=== PATIENT | female | born 1950 | race Caucasian/White ===

== ENCOUNTER → 2018-07-20 08:43 | Outpatient (CLI) | payer MEDICARE, OTHER, SELFPAY ==
[2018-07-20 10:35] LABS: Absolute Lymphocyte Count 1.81 X10^3/ul (0.83-4.51); Absolute Neutrophil Count 3.4 X10^3/uL (2.0-7.7); Basophil# 0.02 X10^3/uL; Basophil% 0.4 % (0-1); Eosinophil# 0.04 X10^3/uL; Eosinophils% 0.7 % (0-5); Hemoglobin 13.3 g/dl (12.0-15.0); Lymphocyte # 1.81 X10^3/ul (4.0); Lymphocyte % 32.5 % (19-41); Mean Corp Hgb Conc 32.4 g/gl (32-36); Mean Corpuscular Hgb 29.6 pg (27.0-32.0); Mean Corpuscular Volume 91.1 fL (81-99); Mean Platelet Vol. 9.4 fl (6.2-12.0); Monocyte# 0.33 X10^3/uL; Monocyte% 5.9 % (0-10); Neutrophil # 3.36 X10^3/uL (2.7-7.7); Neutrophil % 60.3 % (47-70); Platelet Count 414 K/mm3 (150-450); RBC Distribution Width CV 13.6 % (11.6-14.6); RBC Distribution Width SD 44.7 fl (35.1-43.9); White Blood Count 5.6 K/mm3 (4.4-11.0)
[2018-07-20 10:36] LABS: POSITIVE COUNT NO; POSITIVE DIFFERENTIAL NO; POSITIVE MORPHOLOGY NO
[2018-07-20 11:01] LABS: BUN 16 mg/dL (7-18); Creatinine, Serum 0.58 mg/dL (0.55-1.02); EST Glomerular Filtration Rate 109 mL/min (>60); Glucose 93 mg/dL (74-106)
[2018-07-20 11:02] LABS: AST(SGOT) 13 U/L (15-37); Alanine Aminotransfer ALT/SGPT 18 U/L (13-56); Albumin, Serum 3.6 g/dL (3.2-5.0); Alkaline Phosphatase 64 U/L (45-117); Anion Gap 7 (5-15); BUN/Creat Ratio 27.4 RATIO (10-20); Calcium,Total 8.7 mg/dL (8.5-10.1); Chloride 105 mmol/L (98-107); Cholesterol 215 mg/dL (200); Est Glom Filt Rate - Afr Amer 132 mL/min (>60); Globulin 3.5 g/dL (2.2-4.2); High Density Lipoprotein 64 mg/dL; Potassium 3.8 mmol/L (3.5-5.1); Protein, Total 7.1 g/dL (6.4-8.2); Sodium Level 140 mmol/L (136-145); Thyroid Stim Hormone (TSH) 2.53 uIU/mL (0.358-3.74); Triglycerides 103 mg/dL; Very Low Density Lipoprotein 21 mg/dL (5-40)
[2018-07-20 11:13] LABS: PTHIN 44.3 pg/mL (18.4-80.1)
== END ==
PROVIDERS: Family Provider Family Medicine; PCP Family Medicine; Referring Provider Family Medicine; Visit Provider Family Medicine
DX: Z13.220 Encounter for screening for lipoid disorders (principal); M81.0 Age-related osteoporosis without current pathological fracture
CPT/HCPCS: 36415; 80053; 80061; 82306; 83970; 84443; 85025

== ENCOUNTER → 2019-01-24 11:24 | Outpatient (CLI) | payer MEDICARE, SELFPAY ==
[2019-01-24 14:10] LABS: Absolute Lymphocyte Count 1.82 X10^3/ul (0.83-4.51); Absolute Neutrophil Count 6.1 X10^3/uL (2.0-7.7); Basophil# 0.02 X10^3/uL; Basophil% 0.2 % (0-1); Eosinophil# 0.03 X10^3/uL; Eosinophils% 0.4 % (0-5); Hematocrit 41.1 % (37-47); Hemoglobin 13.5 g/dl (12.0-15.0); Lymphocyte # 1.82 X10^3/ul (4.0); Lymphocyte % 21.8 % (19-41); Mean Corp Hgb Conc 32.8 g/gl (32-36); Mean Corpuscular Hgb 29.2 pg (27.0-32.0); Mean Corpuscular Volume 88.8 fL (81-99); Mean Platelet Vol. 9.7 fl (6.2-12.0); Monocyte# 0.39 X10^3/uL; Monocyte% 4.7 % (0-10); Neutrophil # 6.05 X10^3/uL (2.7-7.7); Neutrophil % 72.7 % (47-70); Platelet Count 405 K/mm3 (150-450); RBC Distribution Width CV 13.4 % (11.6-14.6); Red Blood Count 4.63 M/mm3 (4.2-5.4); White Blood Count 8.3 K/mm3 (4.4-11.0)
[2019-01-24 14:13] LABS: POSITIVE COUNT NO; POSITIVE DIFFERENTIAL NO; POSITIVE MORPHOLOGY NO
[2019-01-24 14:35] LABS: ALB/GLOB Ratio 1.2 RATIO (0.9-2.4); AST(SGOT) 15 U/L (15-37); Alanine Aminotransfer ALT/SGPT 21 U/L (13-56); Alkaline Phosphatase 65 U/L (45-117); Anion Gap 7 (5-15); BUN 14 mg/dL (7-18); BUN/Creat Ratio 22.9 RATIO (10-20); Calcium,Total 9.5 mg/dL (8.5-10.1); Chloride 103 mmol/L (98-107); Creatinine, Serum 0.61 mg/dL (0.55-1.02); EST Glomerular Filtration Rate 104 mL/min (>60); Est Glom Filt Rate - Afr Amer 125 mL/min (>60); Ferritin 50 ng/mL (8-252); Globulin 3.4 g/dL (2.2-4.2); Glucose 86 mg/dL (74-106); Potassium 3.8 mmol/L (3.5-5.1); Protein, Total 7.4 g/dL (6.4-8.2); Sodium Level 140 mmol/L (136-145); T4 Free Direct 0.88 ng/dL (0.76-1.46); Thyroid Stim Hormone (TSH) 1.84 uIU/mL (0.358-3.74)
[2019-01-24 14:38] LABS: Vitamin D,25 Hydroxy 30.5 ng/mL (29.95-100.01)
== END ==
PROVIDERS: Family Provider Family Medicine; PCP Family Medicine; Referring Provider Family Medicine; Visit Provider Family Medicine
DX: M81.0 Age-related osteoporosis without current pathological fracture (principal); R53.83 Other fatigue
CPT/HCPCS: 36415; 80053; 82306; 82728; 84439; 84443; 85025

== ENCOUNTER → 2019-03-07 12:40 | Outpatient (CLI) | payer MEDICARE, SELFPAY ==
--- NOTE | 2019-03-07 12:41 | BI_ITS ---
MAMMOGRAPHY - BILATERAL SCREENING REASON FOR EXAM: Female, 68 years old. Routine annual screening examination. PERTINENT HISTORY: Non-contributory. TECHNIQUE: Digital bilateral breast marilee (3D mammographic acquisition) in the CC and MLO projections. 2-D mediolateral oblique (MLO) and craniocaudad (CC) views of both breasts were obtained. CAD: Full Field Digital Mammography with Computer Added Detection was performed. COMPARISON: Comparison is made with prior study dated August 18, 2017. FINDINGS: Breast Composition: The breasts are heterogeneously dense, which may obscure small masses. There are no dominant masses or suspicious calcifications. No other significant abnormalities are identified. There has been no significant change since the prior study. BI/SCREEN MAMM (CAD) W/MARILEE BILAT IMPRESSION: Stable bilateral screening mammogram. Yearly follow-up mammogram recommended. (A) ASSESSMENT CATEGORY: BIRADS Category 1: Negative. A letter regarding these results will be sent to the patient by the facility within 30 days. Approximately 10% of breast cancers are not detected by mammography. A normal mammogram should not delay biopsy of a clinically suspicious abnormality. [id number] Electronically Signed: Roque Valdez, at 14:14 EDT , Service support ,
== END ==
PROVIDERS: Family Provider Family Medicine; PCP Family Medicine; Referring Provider Family Medicine; Visit Provider Family Medicine
DX: Z12.31 Encounter for screening mammogram for malignant neoplasm of breast (principal)
CPT/HCPCS: 77063; 77067

== ENCOUNTER → 2020-12-15 15:03 | Outpatient (CLI) | payer MEDICARE, SELFPAY ==
[2020-12-15 17:29] LABS: Absolute Lymphocyte Count 1.84 X10^3/uL (0.83-4.51); Absolute Neutrophil Count 5.3 X10^3/uL (2.0-7.7); Basophil# 0.03 X10^3/uL; Basophil% 0.4 % (0-1); Eosinophil# 0.05 X10^3/uL; Eosinophils% 0.7 % (0-5); Hematocrit 40.5 % (37-47); Hemoglobin 13.3 g/dL (12.0-15.0); Lymphocyte # 1.84 X10^3/ul (0.83-4.51); Lymphocyte % 24.3 % (19-41); Mean Corp Hgb Conc 32.8 g/dL (32-36); Mean Corpuscular Volume 91.4 fL (81-99); Monocyte# 0.37 X10^3/uL; Monocyte% 4.9 % (0-10); NRBC Flagged by Analyzer 0 % (0-5); Neutrophil # 5.26 X10^3/uL (2.7-7.7); Neutrophil % 69.4 % (47-70); Platelet Count 427 K/mm3 (150-450); RBC Distribution Width CV 13.2 % (11.6-14.6); Red Blood Count 4.43 M/mm3 (4.2-5.4); White Blood Count 7.6 K/mm3 (4.4-11.0)
[2020-12-15 17:46] LABS: Vitamin D,25 Hydroxy 33.4 ng/mL
[2020-12-15 17:50] LABS: ALB/GLOB Ratio 1.1 RATIO (0.9-2.4); AST(SGOT) 12 U/L (15-37); Alanine Aminotransfer ALT/SGPT 21 U/L (13-56); Albumin, Serum 3.8 g/dL (3.2-5.0); Alkaline Phosphatase 66 U/L (45-117); Anion Gap 6 (5-15); BUN 14 mg/dL (7-18); BUN/Creat Ratio 24.3 RATIO (10-20); Calcium,Total 9.4 mg/dL (8.5-10.1); Chloride 104 mmol/L (98-107); Cholesterol 240 mg/dL (200); Creatinine, Serum 0.58 mg/dL (0.55-1.02); EST Glomerular Filtration Rate 110 mL/min (>60); Est Glom Filt Rate - Afr Amer 134 mL/min (>60); Globulin 3.5 g/dL (2.2-4.2); Glucose 89 mg/dL (74-106); High Density Lipoprotein 70 mg/dL; Potassium 3.7 mmol/L (3.5-5.1); Protein, Total 7.3 g/dL (6.4-8.2); Sodium Level 137 mmol/L (136-145); Triglycerides 224 mg/dL; Very Low Density Lipoprotein 45 mg/dL (5-40)
== END ==
PROVIDERS: PCP Family Medicine; Referring Provider Family Medicine; Visit Provider Family Medicine
DX: Z13.220 Encounter for screening for lipoid disorders (principal); M81.0 Age-related osteoporosis without current pathological fracture
CPT/HCPCS: 36415; 80053; 80061; 82306; 85025

== ENCOUNTER → 2021-01-14 11:00 | Outpatient (CLI) | payer MEDICARE, SELFPAY ==
--- NOTE | 2021-01-14 11:02 | BI_ITS ---
MAMMOGRAPHY - BILATERAL SCREENING REASON FOR EXAM: Female, 70 years old. Routine annual screening examination. PERTINENT HISTORY: Non-contributory. TECHNIQUE: Digital bilateral breast marilee (3D mammographic acquisition) in the CC and MLO projections. 2-D mediolateral oblique (MLO) and craniocaudad (CC) views of both breasts were obtained. CAD: Full Field Digital Mammography with Computer Added Detection was performed. COMPARISON: Comparison is made with prior examination of 03/07/2019 and 08/18/2017. FINDINGS: Breast Composition: The breasts are heterogeneously dense, which may obscure small masses. There are no dominant masses or suspicious calcifications. Small benign-appearing bilateral axillary nodes. No other significant abnormalities are identified. There has been no significant change since the prior study. BI/SCRN MAMM (CAD)W/MARILEE BILAT IMPRESSION: Stable bilateral screening mammogram. Yearly follow-up mammogram recommended. (A) ASSESSMENT CATEGORY: BIRADS Category 2: Benign. A letter regarding these results will be sent to the patient by the facility within 30 days. Approximately 10% of breast cancers are not detected by mammography. A normal mammogram should not delay biopsy of a clinically suspicious abnormality. [id number] Electronically Signed: Roque Valdez MD at 11:58 EDT , Service support ,
== END ==
PROVIDERS: PCP Family Medicine; Referring Provider Family Medicine; Visit Provider Family Medicine
DX: Z12.31 Encounter for screening mammogram for malignant neoplasm of breast (principal); M81.0 Age-related osteoporosis without current pathological fracture
CPT/HCPCS: 77063; 77067

== ENCOUNTER → 2021-01-21 10:29 | Outpatient (CLI) | payer MEDICARE, SELFPAY ==
--- NOTE | 2021-01-21 10:35 | BD_ITS ---
STUDY: DUAL ENERGY X-RAY ABSORPTIOMETRY / DXA REASON FOR EXAM: Female, 70 years old. Z780. The patient is postmenopausal. Loss of height. TECHNIQUE: Bone Mineral Density (BMD) measurements of lumbar spine and bilateral hips were obtained. COMPARISON: Comparison is made with prior examination dated 07/21/2016. FINDINGS: Lumbar Spine (L1-L4): g/cm2 (0.928) / T-score (-2.1) / Z-score (-0.4) Findings are suggestive of osteopenia with a high fracture risk. Left Femur Total: g/cm2 (0.802) / T-score (-1.6) / Z-score (-0.2) Left Femoral Neck: g/cm2 (0.759) / T-score (-2.0) / Z-score (-0.3) Right Femur Total: g/cm2 (0.812) / T-score (-1.6) / Z-score (-0.1) Right Femoral Neck: g/cm2 (0.777) / T-score (-1.9) / Z-score (-0.2) The T-Scores on the most recent prior examination were: Lumbar Spine (L1-L4): There has been worsening of bone density since the previous examination. Left Femur Total: which represents a worsening of 2.2%. Right Femur Total: which represents a worsening of 1.7%. BD/Dexa Bone Density Study IMPRESSION: The patient is considered osteopenic as outlined below according to World Stu Organization (WHO) criteria with a high fracture risk. There has been worsening of bone density since the previous examination. Reference Information: The T-score is the number of standard deviations above or below the standard which is normal for young adults at their peak bone mineral density. The World Health Organization (WHO) interprets the T-scores as follows: Above -1 Normal bone density Between -1 and -2.5 Osteopenia Equal to / or below -2.5 Osteoporosis As a practical clinical guideline, osteopenia may be graded as follows: Mild -1 through -1.5 Moderate -1.6 through -2.0 Severe -2.1 through -2.4 The Z-score is the number of standard deviations above or below age-matched controls. A Z-score of less than -1.5 would be considered abnormal. References: 1. NIH Osteoporosis and Related Bone Diseases www osteo.org 2. International Society for Clinical Densitometry www iscd.org 3. National Osteoporosis Foundation www nof.org Electronically Signed: Roque Valdez MD at 8:14 EDT , Service support ,
== END ==
PROVIDERS: PCP Family Medicine; Referring Provider Family Medicine; Visit Provider Family Medicine
DX: Z78.0 Asymptomatic menopausal state (principal)
CPT/HCPCS: 77080

== ENCOUNTER → 2021-04-01 11:36 | Outpatient (CLI) | payer MEDICARE, SELFPAY ==
--- NOTE | 2021-04-01 11:39 | RAD_ITS ---
INDICATION: PAIN EXAMINATION/TECHNIQUE: X-RAY - XR Sacrum/Coccyx Min 2 Views COMPARISON: None. FINDINGS: SACRUM/COCCYX: No evidence of cortical irregularity subtle lucencies suggest a fracture. No evidence of physical sclerotic bone lesion is seen. Degenerative changes seen. SACRO-ILIAC JOINTS: The articular structures are unremarkable. SOFT TISSUES: No soft tissue swelling or gas. RAD/Sacrum-Coccyx min 2 Views IMPRESSION: Degenerative changes, no acute osseous abnormality is seen. Electronically Signed: Luis Avery MD at 14:46 EDT Tel , Service support ,
== END ==
PROVIDERS: PCP Family Medicine; Referring Provider Family Medicine; Visit Provider Family Medicine
DX: M53.3 Sacrococcygeal disorders, not elsewhere classified (principal)
CPT/HCPCS: 72220

== ENCOUNTER → 2022-01-20 | Outpatient (CLI) | payer MEDICARE, SELFPAY ==
--- NOTE | 2022-01-20 13:39 | BI_ITS ---
MAMMOGRAPHY - BILATERAL SCREENING REASON FOR EXAM: Female, 71 years old. Routine annual screening examination. PERTINENT HISTORY: Non-contributory. TECHNIQUE: Digital bilateral breast marilee (3D mammographic acquisition) in the CC and MLO projections. 2-D mediolateral oblique (MLO) and craniocaudad (CC) views of both breasts were obtained. CAD: Full Field Digital Mammography with Computer Added Detection was performed. COMPARISON: Comparison mammogram from 01/14/2021, 03/07/2019, 08/18/2017, 07/21/2016. FINDINGS: Breast Composition: The breasts are heterogeneously dense, which may obscure small masses. There are no dominant masses or suspicious calcifications. Stable small benign-appearing bilateral axillary lymph nodes. No other significant abnormalities are identified. There has been no significant change since the prior study. BI/SCRN MAMM (CAD)W/MARILEE BILAT IMPRESSION: Stable bilateral screening mammogram. Yearly follow-up mammogram recommended. (A) ASSESSMENT CATEGORY: BIRADS Category 2: Benign. A letter regarding these results will be sent to the patient by the facility within 30 days. Approximately 10% of breast cancers are not detected by mammography. A normal mammogram should not delay biopsy of a clinically suspicious abnormality. [id number] Electronically Signed: Ashutosh Vaughan, at 11:12 EDT ,
== END | disposition home or self-care (01) ==
LOC: OPBI 13:36
PROVIDERS: PCP Family Medicine; Visit Provider Nurse Practitioner Family
DX: Z12.31 Encounter for screening mammogram for malignant neoplasm of breast (principal)
CPT/HCPCS: 77063; 77067

== ENCOUNTER → 2023-01-04 | Outpatient (CLI) | payer MEDICARE, SELFPAY ==
[2023-01-04 10:13] LABS: Absolute Lymphocyte Count 2.05 X10^3/uL (0.83-4.51); Absolute Neutrophil Count 4.5 X10^3/uL (2.0-7.7); Basophil# 0.05 X10^3/uL; Basophil% 0.7 % (0-1); Eosinophil# 0.04 X10^3/uL; Eosinophils% 0.6 % (0-5); Hematocrit 43.3 % (37-47); Hemoglobin 13.8 g/dL (12.0-15.0); Lymphocyte # 2.05 X10^3/ul (0.83-4.51); Lymphocyte % 29.4 % (19-41); Mean Corp Hgb Conc 31.9 g/dL (32-36); Mean Corpuscular Hgb 30.2 pg (27.0-32.0); Mean Corpuscular Volume 94.7 fL (81-99); Mean Platelet Vol. 9.7 fl (6.2-12.0); Monocyte% 4.3 % (0-10); NRBC Flagged by Analyzer 0 % (0-5); Neutrophil # 4.52 X10^3/uL (2.7-7.7); Neutrophil % 64.7 % (47-70); Platelet Count 400 K/mm3 (150-450); RBC Distribution Width CV 13.5 % (11.6-14.6); RBC Distribution Width SD 46.5 fl (35.1-43.9); Red Blood Count 4.57 M/mm3 (4.2-5.4)
[2023-01-04 10:47] LABS: ALB/GLOB Ratio 0.9 RATIO (0.9-2.4); AST(SGOT) 16 U/L (15-37); Alanine Aminotransfer ALT/SGPT 20 U/L (13-56); Albumin, Serum 3.7 g/dL (3.2-5.0); Alkaline Phosphatase 67 U/L (45-117); Anion Gap 5 (5-15); BUN 17 mg/dL (7-18); Calcium,Total 9.2 mg/dL (8.5-10.1); Chloride 107 mmol/L (98-107); Cholesterol 230 mg/dL (200); Creatinine, Serum 0.65 mg/dL (0.55-1.02); EST Glomerular Filtration Rate 95 mL/min (>60); Est Glom Filt Rate - Afr Amer 115 mL/min (>60); Globulin 3.9 g/dL (2.2-4.2); Glucose 96 mg/dL (74-106); High Density Lipoprotein 76 mg/dL; Potassium 4.3 mmol/L (3.5-5.1); Protein, Total 7.6 g/dL (6.4-8.2); Sodium Level 137 mmol/L (136-145); Triglycerides 101 mg/dL; Very Low Density Lipoprotein 20 mg/dL (5-40)
[2023-01-04 10:55] LABS: Vitamin D,25 Hydroxy 50.1 ng/mL
== END | disposition home or self-care (01) ==
LOC: MTLAB 08:53
PROVIDERS: PCP Family Medicine; Referring Provider Family Medicine; Visit Provider Family Medicine
DX: E78.00 Pure hypercholesterolemia, unspecified (principal); M81.0 Age-related osteoporosis without current pathological fracture
CPT/HCPCS: 36415; 80053; 80061; 82306; 85025

== ENCOUNTER → 2023-03-23 | Outpatient (CLI) | payer MEDICARE, SELFPAY ==
[2023-03-23 17:44] LABS: Absolute Lymphocyte Count 1.84 X10^3/uL (0.83-4.51); Absolute Neutrophil Count 5.8 X10^3/uL (2.0-7.7); Basophil# 0.03 X10^3/uL; Basophil% 0.4 % (0-1); Eosinophil# 0.05 X10^3/uL; Eosinophils% 0.6 % (0-5); Hematocrit 40.1 % (37-47); Hemoglobin 12.9 g/dL (12.0-15.0); Lymphocyte # 1.84 X10^3/ul (0.83-4.51); Lymphocyte % 22.2 % (19-41); Mean Corp Hgb Conc 32.2 g/dL (32-36); Mean Corpuscular Hgb 30.1 pg (27.0-32.0); Mean Corpuscular Volume 93.5 fL (81-99); Mean Platelet Vol. 9.5 fl (6.2-12.0); NRBC Flagged by Analyzer 0 % (0-5); Neutrophil # 5.83 X10^3/uL (2.7-7.7); Neutrophil % 70.6 % (47-70); Platelet Count 425 K/mm3 (150-450); RBC Distribution Width CV 12.8 % (11.6-14.6); RBC Distribution Width SD 43.7 fl (35.1-43.9); Red Blood Count 4.29 M/mm3 (4.2-5.4); White Blood Count 8.3 K/mm3 (4.4-11.0)
[2023-03-23 18:13] LABS: Anion Gap 6 (5-15); BUN 16 mg/dL (7-18); BUN/Creat Ratio 28.1 RATIO (10-20); Calcium,Total 9.6 mg/dL (8.5-10.1); Chloride 102 mmol/L (98-107); Creatinine, Serum 0.57 mg/dL (0.55-1.02); EST Glomerular Filtration Rate 111 mL/min (>60); Est Glom Filt Rate - Afr Amer 134 mL/min (>60); Glucose 102 mg/dL (74-106); Sodium Level 135 mmol/L (136-145)
== END | disposition home or self-care (01) ==
LOC: MTLAB 15:40
PROVIDERS: PCP Family Medicine; Referring Provider Family Medicine; Visit Provider Family Medicine
DX: R06.02 Shortness of breath (principal)
CPT/HCPCS: 36415; 80048; 85025

== ENCOUNTER 2023-05-03 23:30 | Inpatient (IN) | payer MEDICARE, SELFPAY ==
--- NOTE | 2023-05-03 00:20 | RAD_ITS ---
EXAM: XR CHEST, 1 VIEW CLINICAL INDICATION: chest pain TECHNIQUE: Frontal view of the chest. COMPARISON: No relevant prior studies available. FINDINGS: LUNGS AND PLEURAL SPACES: Mild bibasilar atelectasis. No consolidation or edema. No pneumothorax. No effusion. HEART: Unremarkable. Cardiac silhouette not enlarged. MEDIASTINUM: Central airways and mediastinal contour are unremarkable. BONES/JOINTS: Unremarkable. SOFT TISSUES: Unremarkable. RAD/Chest 1 View (Portable) IMPRESSION: Mild bibasilar atelectasis, otherwise unremarkable exam. Electronically Signed: Fran Hemphill MD at 0:47 EDT ,
[2023-05-03 23:30] VITALS: BP 126/80; PULSE 148; RESP 16; TEMP 35.8; O2SAT 97; BMI 22.5
[2023-05-03 23:35] VITALS: BP 126/80; PULSE 143; RESP 16; O2SAT 97
--- NOTE | 2023-05-03 23:59 | EKG12_ITS ---
Test Reason : CP Blood Pressure : / mmHG Vent. Rate : 135 BPM Atrial Rate : 000 BPM P-R Int : 000 ms QRS Dur : 084 ms QT Int : 270 ms P-R-T Axes : 000 057 -62 degrees QTc Int : 405 ms Atrial fibrillation with rapid ventricular response Marked ST abnormality, possible inferior subendocardial injury Abnormal ECG Confirmed by SOILA MOORE, GOSIA ([id number]), editor map BETHANY HERZOG ([id number]) on 05/05/2023 1:12:40 PM Referred By: LUIS M Confirmed By:GOSIA CM MD
[2023-05-04] VITALS (19 sets, daily range): BP systolic 95–148; BP diastolic 52–93; PULSE 55–146; RESP 12–31; TEMP 35.7–36.7; O2SAT 95–100; BMI 21.0
--- NOTE | 2023-05-04 | ED.VIS.CHEST ---
HPI History of Present Illness Chief Complaint: Chest Pain Informant: patient Narrative Narrative: With chest pain and tachycardia. Patient states that this woke her up this morning. She has chest pain in the anterior chest that radiates to the back. Very mild shortness of breath. No nausea. She also notes that her heart rate is fast. Patient states she had an episode of this in February that lasted about 3 hours and then resolved. She had 1 more episode between then that only lasted a few minutes. She thinks her heart rate was fast with those episodes but is not sure. Both of them occurred at night. Patient does have family history of atrial fibrillation. Patient has no chronic medical conditions other than difficulty sleeping at times. No diabetes high blood pressure high cholesterol. She gets an annual checkup and is never had problems. No allergies Only medication is mirtazapine as needed for sleep but she has not taken it recently. PFSH PFS Medical History (Updated 05/04/23 @ 01:[address] Chris Roche MD) Chronic insomnia Medical History no medical history Home Medications mirtazapine 7.5 mg tablet 7.5 mg PO QHS PRN sleeping 05/03/23 [History Last Taken Unknown] Allergy/AdvReac Type Severity Reaction Status Date / Time No Known Allergies Allergy Verified 05/03/23 23:34 Family History (Updated 05/04/23 @ 01:[address] Linda Hyman MD) Brother Atrial fibrillation Brother Atrial fibrillation Mother Heart disease Father Colon cancer Surgical History (Updated 05/04/23 @ 01:[address] Linda Hyman MD) History of dental surgery Social History (Updated 05/04/23 @ 01:[address] Linda Hyman MD) household members: spouse Smoking Status: Never smoker alcohol intake: current alcohol intake frequency: a few times a week Alcohol type: wine substance use type: does not use ROS ROS ED ROS Narrative A complete review of systems was performed and is negative except as documented in the history of present illness. Some specific details below. Constitutional: No recent fevers or chills. Days. She was feeling fine until this happened EYE: No visual complaints, or pain. ENT: No difficulty swallowing. No swelling. No pain. No reflux symptoms. GERD symptoms CV: See history of present illness. Respiratory: No dyspnea but not now. GI: No abdominal pain. No nausea vomiting diarrhea. No blood in stool. : No frequency dysuria or hematuria. Musculoskeletal: No recent trauma. No pains. No swelling. Skin: No rash. Nondiaphoretic. Neuro: No weakness or numbness. Endocrine: No polyuria or polydipsia. EXAM Physical Exam Narrative Exam Narrative: CONSTITUTIONAL: Patient is nontoxic in appearance. The patient looks comfortable. Work of breathing looks normal. HEENT: No notable trauma. Mucous membranes moist. EYES: No conjunctival injection. No proptosis. NECK:No JVD. No stridor. CARDIOVASCULAR: Tachycardic rate. Irregularly irregular rhythm. No notable murmur. No JVD. Her monitor shows atrial fibrillation with a rate of approximately 140. RESPIRATORY: No respiratory distress. Breathing is unlabored. No wheezes. No rhonchi. No rales. No pain with a deep breath. No chest wall tenderness. Monitor shows saturations normal at 97% on room air showing no hypoxia. GASTROINTESTINAL: Not distended. Bowel sounds are normal. No tenderness. No guarding. No rebound. GENITOURINARY: No tenderness over the bladder. No CVA tenderness. MUSCULOSKELETAL: Atraumatic. Extremities are both in show no peripheral edema. No cord. No tenderness along the deep venous system. No asymmetry. No distended veins. NEUROLOGICAL: Patient is alert and appropriate. No focal deficit noted. SKIN: No noted rashes. No diaphoresis. Pallor. PSYCHIATRIC: Patient is calm. Mood is appropriate. Const Vital Signs: 05/03/23 23:30 05/03/23 23:35 05/03/23 23:35 Temperature 96.5 F L Temperature Source Temporal Pulse Rate 148 H 143 H Respiratory Rate 16 16 Respiratory Effort Normal Blood Pressure 126/80 H 126/80 H Blood Pressure Mean 95 95 Pulse Ox 97 97 Oxygen Delivery Method Room Air Room Air 05/04/23 00:01 05/04/23 00:11 05/04/23 00:37 Temperature Temperature Source Pulse Rate 132 H 111 H Respiratory Rate 19 H 31 H Respiratory Effort Blood Pressure 117/93 H 101/79 Blood Pressure Mean 101 86 Pulse Ox 96 95 Oxygen Delivery Method Room Air Room Air Room Air MDM MDM MDM Narrative Medical decision making narrative: CBC shows no acute process. Electrolytes are normal other than minimal recent potassium to 3.4. Magnesium is normal. Troponin is normal. TSH is high. D-dimer is negative. My independent interpretation of her chest x-ray shows overlying pacer pads but no sign of acute process. Final reading shows mild basilar atelectasis otherwise unremarkable. Patient was given IV fluids. She was given a bolus of Cardizem. She did slow down the rate but is back up. We will now switch and place her on an IV drip of Cardizem. Case was discussed with the hospitalist. With the patient having symptomatic chest pain, 3 suspected episodes of this, not coming out of atrial fibrillation and needing a drip she will be brought in the hospital at this time. This note was generated with [employer] dictation software. It may contain incorrect words, spelling, and punctuation that were not noted in review of the chart prior to signing. Lab Data Attestation: I reviewed the patient's lab results. Labs: Laboratory Results - last 24 hr 05/04/23 05/04/23 00:09 01:20 WBC 7.6 RBC 4.24 Hgb 12.5 Hct 39.1 MCV 92.2 MCH 29.5 MCHC 32.0 RDW Std Deviation 45.7 H RDW Coeff of Adrianne 13.6 Plt Count 407 MPV 9.1 Immature Gran % (Auto) 0.400 Neut % (Auto) 64.7 Lymph % (Auto) 27.7 [place] % (Auto) 6.1 Eos % (Auto) 0.7 Baso % (Auto) 0.4 Absolute Neuts (auto) 4.9 Absolute Lymphs (auto) 2.10 Nucleated RBC % 0 D-Dimer Quant (PE/DVT) < 0.27 L Sodium 137 Potassium 3.4 L Chloride 106 Carbon Dioxide 27.0 Anion Gap 4 L BUN 18 Creatinine 0.54 L Estim Creat Clear Calc 43.91 Est GFR (MDRD) Af Amer 142 Est GFR (MDRD) Non-Af 117 BUN/Creatinine Ratio 33.1 H Glucose 135 H Calcium 8.9 Magnesium 2.2 Troponin I High Sens 42 TSH 5.56 H Radiography Diagnostic Testing: Clinical Impression(s) from Imaging Studies Chest X-Ray 05/03/23 00:20 IMPRESSION: Mild bibasilar atelectasis, otherwise unremarkable exam. Electronically Signed: Fran Hemphill MD at 0:47 EDT , EKG Initial EKG: Comments: My independent interpretation of the patient's EKG shows atrial fibrillation with rapid rate of 135. No ventricular ectopy. QRS duration and QTc are normal. Management Discussion w/another healthcare provider: Hospitalist Critical Care Time Critical Care Time: Yes Critical care time (excluding procedures): 30-74 minutes, Discussing w/Patient &/or Family/Sem Manager, Discussing w/Consultants, Arranging Admission or Transfer, Performing Direct Patient Care at Bedside and - (Hx, altering medication treatment, placed on IV drip, consultation, 34 minutes.) Discharge Plan Triage Chief Complaint: Chest Pain ED Provider: Chris Roche Dx/Rx/DC Orders Clinical Impression: Elevated TSH, Chest pain, Atrial fibrillation with RVR, Hypokalemia Primary Care Provider: Galindo Coello Disposition Disposition: Acute Care Hospital [facility]
[2023-05-04] MEDS: 0.9% Normal Saline (1000mL) 1,000 ML 1000 ML IV (00:08)
[2023-05-04] MEDS: Aspirin 81 MG TAB.CHEW 324 MG PO (00:08)
[2023-05-04] MEDS: dilTIAZem 25 MG/5 ML Vial 10 MG IV BOLUS (00:09)
[2023-05-04 00:17] LABS: Absolute Neutrophil Count 4.9 X10^3/uL (2.0-7.7); Basophil# 0.03 X10^3/uL; Basophil% 0.4 % (0-1); Eosinophil# 0.05 X10^3/uL; Eosinophils% 0.7 % (0-5); Hematocrit 39.1 % (37-47); Hemoglobin 12.5 g/dL (12.0-15.0); Lymphocyte % 27.7 % (19-41); Mean Corpuscular Hgb 29.5 pg (27.0-32.0); Mean Corpuscular Volume 92.2 fL (81-99); Mean Platelet Vol. 9.1 fl (6.2-12.0); Monocyte# 0.46 X10^3/uL; Monocyte% 6.1 % (0-10); NRBC Flagged by Analyzer 0 % (0-5); Neutrophil # 4.91 X10^3/uL (2.7-7.7); Neutrophil % 64.7 % (47-70); Platelet Count 407 K/mm3 (150-450); RBC Distribution Width CV 13.6 % (11.6-14.6); RBC Distribution Width SD 45.7 fl (35.1-43.9); Red Blood Count 4.24 M/mm3 (4.2-5.4); White Blood Count 7.6 K/mm3 (4.4-11.0)
[2023-05-04 00:42] LABS: Anion Gap 4 (5-15); BUN 18 mg/dL (7-18); BUN/Creat Ratio 33.1 RATIO (10-20); Calcium,Total 8.9 mg/dL (8.5-10.1); Chloride 106 mmol/L (98-107); Creatinine, Serum 0.54 mg/dL (0.55-1.02); EST Glomerular Filtration Rate 117 mL/min (>60); Est Glom Filt Rate - Afr Amer 142 mL/min (>60); Estimated Creatinine Clearance 43.91 ml/min; Glucose 135 mg/dL (74-106); Magnesium 2.2 mg/dL (1.6-2.6); Potassium 3.4 mmol/L (3.5-5.1); Sodium Level 137 mmol/L (136-145); Thyroid Stim Hormone (TSH) 5.56 uIU/mL (0.358-3.74); Troponin-I HS (w/2H Reflex) 42 pg/mL (3.0-54.0)
--- NOTE | 2023-05-04 01:07 | HP.PCM.HOS_ITS ---
HPI - General General Date of Admission: 05/04/23 Date of Service: 05/04/23 Chief Complaint: Palpitations, heart racing, chest pain. HPI Narrative Exam Katey patient is a 73 y/o F w/ PMHx: Insomnia who presents to the [facility] ED on 05/04/23 with history of awaking this morning secondary to significant palpitations, tachycardia, chest discomfort in the anterior chest radiating toward her back with associated mild dyspnea with episode similar to this in February lasting about 3 hours with resolution following as well as 1 additional episode between now and then which only lasted minutes both occurred at night not improving prompting eventual ED evaluation. She currently upon evaluation with rate increased again to 140s to 150s awaiting start reports discomfort between her shoulder blades and anterior mid chest without radiation, 2 out of 10 in severity with no marked dyspnea. She does report at least 2 brothers who had atrial fibrillation and both required eventual pacemaker placement. Work-up in the ED included T96.5, heart rate 148 initially with most recent repeat 111, BP 126/80 with most recent repeat 101/79, respiratory rate ranging 16-31, 95 to 97% oxygenation on room air, CBC with WBC 7.6, hemoglobin 12.5, platelet 407 without marked shift, BMP with potassium 3.4, BUN/creatinine 18/0.54, glucose 135, magnesium 2.2, troponin 42, TSH 5.56, chest x-ray with mild basilar atelectasis otherwise no acute cardiopulmonary findings, EKG with new onset atrial fibrillation with RVR. In the ED patient administered full-strength aspirin, 1 L normal saline bolus as well as diltiazem 10 mg IV bolus x1 and eventually transition to a drip as rates increased again into the 140s. [facility] Medical History (Updated 05/04/23 @ 01:[address] Linda Hyman MD) Chronic insomnia Medical History no medical history Home Medications mirtazapine 7.5 mg tablet 7.5 mg PO QHS PRN sleeping 05/03/23 [History Last Taken Unknown] Allergy/AdvReac Type Severity Reaction Status Date / Time No Known Allergies Allergy Verified 05/03/23 23:34 Family History (Updated 05/04/23 @ 01:[address] Linda Hyman MD) Brother Atrial fibrillation Brother Atrial fibrillation Mother Heart disease Father Colon cancer Surgical History (Updated 05/04/23 @ 01:[address] Linda Hyman MD) History of dental surgery Social History (Updated 05/04/23 @ 01:[address] Linda Hyman MD) household members: spouse Smoking Status: Never smoker alcohol intake: current alcohol intake frequency: a few times a week Alcohol type: wine substance use type: does not use ROS ROS Narrative Admission Review of Systems: CONSTITUTIONAL: No weight loss, fever, chills, + weakness or fatigue. HEENT: Eyes: No visual loss, blurred vision, double vision or yellow sclerae. Ears, Nose, Throat: No hearing loss, sneezing, congestion, runny nose or sore throat. SKIN: No rash or itching, lesions, wounds. CARDIOVASCULAR: + chest pain, chest pressure or chest discomfort, palpitations. No edema, orthopnea, syncopal events. RESPIRATORY: + Shortness of breath. No cough or sputum, wheezing, hemoptysis. GASTROINTESTINAL: No anorexia, nausea, vomiting or diarrhea, abdominal pain, melena, BRBPR. GENITOURINARY: No dysuria, frequency, urgency or retention. NEUROLOGICAL: No headache, dizziness, syncope, paralysis, ataxia, numbness or tingling in the extremities, focal weakness, change in bowel or bladder control, seizure. MUSCULOSKELETAL: No muscle, back pain, joint pain or stiffness. HEMATOLOGIC: No anemia, bleeding or bruising. LYMPHATICS: No enlarged nodes. No history of splenectomy. PSYCHIATRIC: No history of depression or anxiety. + Chronic insomnia. ENDOCRINOLOGIC: No reports of sweating, cold or heat intolerance. No polyuria or polydipsia. ALLERGIES: No history of asthma, hives, eczema or rhinitis. Vital Signs Vital Signs Vital Signs: 05/03/23 23:30 05/03/23 23:35 05/03/23 23:35 Temperature 96.5 F L Temperature Source Temporal Pulse Rate 148 H 143 H Respiratory Rate 16 16 Respiratory Effort Normal Blood Pressure 126/80 H 126/80 H Blood Pressure Mean 95 95 Pulse Ox 97 97 Oxygen Delivery Method Room Air Room Air 05/04/23 00:01 05/04/23 00:11 05/04/23 00:37 Temperature Temperature Source Pulse Rate 132 H 111 H Respiratory Rate 19 H 31 H Respiratory Effort Blood Pressure 117/93 H 101/79 Blood Pressure Mean 101 86 Pulse Ox 96 95 Oxygen Delivery Method Room Air Room Air Room Air Weight Weight: 131 lb 2.801 oz Body Mass Index (BMI) 22.5 Physical Exam Narrative Physical Examination: General: Awake, alert, oriented x 3 and cooperative, seated upright in the ED bed in no apparent distress, fatigued, notes some recurrent discomfort with rate now increased again to 1 40-1 50s awaiting Cardizem drip start. Skin: Normal color, normal turgor, no icterus, no cyanosis. HEENT: AT/NC, EOMI, PERRLA, MMM, no carotid bruits or JVD noted. Lungs: CTA bilaterally, moderate effort, mild decrease BL bases, no rales, ronchi or wheezing. Heart: Irregular irregular; no gallop, rub audible. Abdomen: Soft, NTTP, ND, normal BS, no HSM. Extremities: No cyanosis, clubbing, or edema. Neurological: Patient awake, alert, oriented as noted, cognitive function intact; pupils equally reactive to light and accommodation, cranial nerves II- XII grossly normal, moving all 4 extremities, no focal deficits, strength mildly to moderately global decrease secondary to acute complaints. Psychiatric: Affect appears fatigued otherwise normal, no acute evidence of depressive or anxiety feelings. Results Lab / Micro Data 05/04/23 00:09 05/04/23 00:09 Labs: Laboratory Results - last 24 hr 05/04/23 00:09: WBC 7.6, RBC 4.24, Hgb 12.5, Hct 39.1, MCV 92.2, MCH 29.5, MCHC 32.0, RDW Std Deviation 45.7 H, RDW Coeff of Adrianne 13.6, Plt Count 407, MPV 9.1, Immature Gran % (Auto) 0.400, Neut % (Auto) 64.7, Lymph % (Auto) 27.7, [place] % (Auto) 6.1, Eos % (Auto) 0.7, Baso % (Auto) 0.4, Absolute Neuts (auto) 4.9, Absolute Lymphs (auto) 2.10, Nucleated RBC % 0, Sodium 137, Potassium 3.4 L, Chloride 106, Carbon Dioxide 27.0, Anion Gap 4 L, BUN 18, Creatinine 0.54 L, Estim Creat Clear Calc 43.91, Est GFR (MDRD) Af Amer 142, Est GFR (MDRD) Non-Af 117, BUN/Creatinine Ratio 33.1 H, Glucose 135 H, Calcium 8.9, Magnesium 2.2, Troponin I High Sens 42, TSH 5.56 H Radiology Impression Chest X-Ray 05/03/23 00:20 IMPRESSION: Mild bibasilar atelectasis, otherwise unremarkable exam. Electronically Signed: Fran Hemphill MD at 0:47 EDT , Assessment & Plan Assessment/Plan (1) Atrial fibrillation with RVR: PLAN: Plan The patient is a 73 y/o F w/ PMHx: Insomnia who presents to the [facility] ED on 05/04/23 with history of awaking this morning secondary to significant palpitations, tachycardia, chest discomfort in the anterior chest radiating toward her back with associated mild dyspnea with episode similar to this in February lasting about 3 hours with resolution following as well as 1 additional episode between now and then which only lasted minutes both occurred at night not improving prompting eventual ED evaluation. #1. Paroxsymal atrial fibrillation w/ RVR with associated chest discomfort: EKG in ED w/ atrial fibrillation w/ RVR. Patient administered Cardizem 10 mg IV bolus x1 in ED. Will admit to PCU, maintain on telemetry, obtain cardiac enzyme serial set, will obtain ECHO, TSH elevated as noted with plan free T4, magnesium appropriate level of 2.2, will obtain D-dimer as well as COVID assessment. Will place on therapeutic lovenox in the interim pending further evaluation. Will continue recently initiated cardizem drip with transition to oral regimen over the next 24 hours. May consider Cardiology consultation if not responsive or concerns arise. #2. Abnormal TSH: TSH 5.56, will obtain free T4 to further elucidate especially given presentation with PAF with RVR as noted. #3. Hyperglycemia, mild: Admission glucose 135, will obtain hemoglobin A1c be cautious. #4. Hypokalemia: Admission K+ 3.4, magnesium 2.2, supplementation given, repeat level in AM. #5. Chronic insomnia: We continue patient home chronic mirtazapine regimen although per reports she has not taken this in some time. #6. DVT prophylaxis: Therapeutic lovenox. #7. CODE status: Patient does not have HCPOA set up but her decision maker would be her and living will is currently in place. Full Code. Charges/Coding Visit Charges Inpatient E&M: 38944 Init Hosp L3
[2023-05-04 01:40] LABS: D-Dimer Quantitative (DVT/PE) < 0.27 FEU/ug/m (0.27-0.49)
[2023-05-04] MEDS: Diltiazem 125 MG in Dextrose 5%-Water (100mL Bag) 100 ML CONT INF (01:40)
--- NOTE | 2023-05-04 02:09 | ECHOD_ITS ---
Reason For Study: Afib/Flutter Procedure This was a 2D Doppler, Color Flow transthoracic echocardiogram. Exam performed portable in ICU/CCU. Left Ventricle Normal LV size. Left ventricular systolic function is normal. The estimated ejection fraction is 55 %. No regional wall motion abnormalities noted. Right Ventricle Normal RV size. Atria Normal left atrium. Mitral Valve Normal mitral valve. Tricuspid Valve Normal tricuspid valve. Mild (1+) tricuspid valve insufficiency. Pulmonary artery systolic pressure is 28 mmHg. Aortic Valve Normal aortic valve. Trisinus/trileaflet aortic valve. Pulmonic Valve Normal pulmonic valve. Great Vessels Normal aortic root. The pulmonary artery is normal size. Normal inferior vena cava. Pericardium/Pleural No pericardial effusion. MMode/2D Measurements & Calculations LVIDd: 3.7 cm IVSd: 0.83 cm Ao root diam: 3.4 cm LVIDs: 2.4 cm LVPWd: 0.88 cm LA dimension: 2.8 cm RVDd: 3.7 cm FS: 34.3 % LAV(MOD-bp): 27.3 ml LA A4 area: 10.7 cm2 RA A4 area: 16.3 cm2 LAV(MOD-bp) Indexed: 16.7 ml/m2 LAV(MOD-sp2): 27.1 ml LAV(MOD-sp4): 21.8 ml TAPSE: 2.1 cm Time Measurements MV dec time: 0.23 sec Doppler Measurements & Calculations MV E max jose: 100.6 cm/sec Lat Peak E' Jose: 9.8 cm/sec Med Peak E' Jose: 8.9 cm/sec MV A max jose: 90.9 cm/sec E/E' lat: 10.2 E/E' med: 11.3 MV E/A: 1.1 MV V2 max: 110.2 cm/sec MV P1/2t max jose: 111.2 cm/sec Ao V2 max: 118.4 cm/sec MV max P.9 mmHg MV P1/2t: 79.0 msec Ao max P.6 mmHg MV V2 mean: 64.0 cm/sec Ao V2 mean: 82.3 cm/sec MV mean P.9 mmHg MV dec slope: 412.3 cm/sec2 Ao mean P.1 mmHg MV V2 VTI: 32.6 cm MVA(P1/2t): 2.8 cm2 Ao V2 VTI: 29.7 cm AV (velocity ratio): 0.86 LV V1 max: 104.4 cm/sec PA V2 max: 78.6 cm/sec TR max jose: 248.1 cm/sec LV V1 max P.4 mmHg TR max P.6 mmHg LV V1 mean P.5 mmHg LV V1 mean: 74.7 cm/sec LV V1 VTI: 25.5 cm ECHO/Echo Complete Interpretation Summary Normal LV size. Left ventricular systolic function is normal. The estimated ejection fraction is 55 %. Pulmonary artery systolic pressure is 28 mmHg. Ordering Physician: Linda Hyman Performed By: Fred Wu RCS
[2023-05-04 02:15] LABS: Reflex Troponin-HS? (from REC) Y
[2023-05-04] MEDS: Enoxaparin 60 MG/0.6 ML Syringe SC ×2 (02:24→09:11)
[2023-05-04 02:36] LABS: Absolute Lymphocyte Count 1.94 X10^3/uL (0.83-4.51); Absolute Neutrophil Count 4.8 X10^3/uL (2.0-7.7); Basophil# 0.04 X10^3/uL; Basophil% 0.6 % (0-1); Eosinophil# 0.05 X10^3/uL; Eosinophils% 0.7 % (0-5); Hematocrit 39.1 % (37-47); Hemoglobin 12.4 g/dL (12.0-15.0); Lymphocyte # 1.94 X10^3/ul (0.83-4.51); Lymphocyte % 26.8 % (19-41); Mean Corp Hgb Conc 31.7 g/dL (32-36); Mean Corpuscular Hgb 29.5 pg (27.0-32.0); Mean Corpuscular Volume 92.9 fL (81-99); Monocyte# 0.38 X10^3/uL; Monocyte% 5.2 % (0-10); NRBC Flagged by Analyzer 0 % (0-5); Neutrophil # 4.81 X10^3/uL (2.7-7.7); Neutrophil % 66.4 % (47-70); Platelet Count 389 K/mm3 (150-450); RBC Distribution Width CV 13.7 % (11.6-14.6); RBC Distribution Width SD 46.8 fl (35.1-43.9); Red Blood Count 4.21 M/mm3 (4.2-5.4); White Blood Count 7.2 K/mm3 (4.4-11.0)
[2023-05-04 02:52] LABS: ALB/GLOB Ratio 1.1 RATIO (0.9-2.4); AST(SGOT) 14 U/L (15-37); Alanine Aminotransfer ALT/SGPT 21 U/L (13-56); Albumin, Serum 3.4 g/dL (3.2-5.0); Alkaline Phosphatase 68 U/L (45-117); Anion Gap 0 (5-15); BUN 17 mg/dL (7-18); Calcium,Total 8.7 mg/dL (8.5-10.1); Chloride 109 mmol/L (98-107); Creatinine, Serum 0.59 mg/dL (0.55-1.02); EST Glomerular Filtration Rate 107 mL/min (>60); Est Glom Filt Rate - Afr Amer 130 mL/min (>60); Estimated Creatinine Clearance 43.91 ml/min; Globulin 3.2 g/dL (2.2-4.2); Glucose 119 mg/dL (74-106); Potassium 3.8 mmol/L (3.5-5.1); Protein, Total 6.6 g/dL (6.4-8.2); Sodium Level 138 mmol/L (136-145); T4 Free Direct 0.75 ng/dL (0.76-1.46)
[2023-05-04 02:55] LABS: Hemoglobin A1c 5.4 % (3.8-5.6)
[2023-05-04 03:35] LABS: Troponin-I HS 132 pg/mL (3.0-54.0)
[2023-05-04] MEDS: Potassium Chloride Oral Tablet 20 MEQ 40 MEQ PO (04:26)
[2023-05-04 06:47] LABS: Troponin-I HS 132 pg/mL (3.0-54.0)
[2023-05-04] MEDS: Metoprolol Tartrate 25 MG Tablet PO (11:03)
[2023-05-04] MEDS: 0.9% Saline Lock 10 ML Syringe IV (11:04)
--- NOTE | 2023-05-04 13:45 | CASEMGMT ---
RN?CM?CONSERVATION PLANNER?CM?to room to meet with patient for initial transition planning/care coordination?assessment.?RN?CM?introduced self and role at [facility].? Pt voices understanding and consents to?assessment?at this time.? Pt sitting up in chair in room in no distress at this time.? Pt is A/O at this time and answers all questions appropriately.?? Care providers, pharmacy, and demographics verified/updated at this time. PCP: Dr Galindo Coello Specialists: Dr Toribio-GI, Dr Potter-podiatry, Dr Salas-optometry Preferred Pharmacy: [facility] Insurance: [employer] Prescription Benefit:?Yes. Pt discharging home on Eliquis. Provided w/30-day savings card and instructed on use. Pt made aware to f/u with PCP if refills are not affordable. Living Will/HPOA:? Pt has LW but does not have HCPOA. Pt made aware this can be completed w/SW if desired. LNOK: , Arnie. Step-sonFarooq Living Arrangements: Lives w/ in one-story home w/ramp entrance. is currently a patient @ [facility]. Pt is independent w/ADL's, IADL's, and manages her own medications. Transportation:?Pt states drives self and states no transportation concerns at this time.? DIL will take her home @ tx. DME: ? Denies using any DME and denies needs.? HHC/SNF: No hx of either. No needs identified. Pt wishes to return home and states has no concerns with going home at time of discharge.?CM?to follow for any further discharge planning/needs.? Pt voices no further concerns/needs at this time.? Advised pt to ask for?CM?if any further questions/concerns/needs arise.? Voices understanding. PLAN:??Home. Yuki BSN?RN?CM
[2023-05-04 16:13] LABS: Troponin-I HS 52 pg/mL (3.0-54.0)
--- NOTE | 2023-05-04 16:21 | EKG12_ITS ---
Test Reason : ARRYTHMIA Blood Pressure : / mmHG Vent. Rate : 064 BPM Atrial Rate : 064 BPM P-R Int : 160 ms QRS Dur : 086 ms QT Int : 418 ms P-R-T Axes : 041 070 049 degrees QTc Int : 431 ms Normal sinus rhythm Normal ECG Confirmed by SOILA MOORE, GOSIA ([id number]), film and video editor STARR WELSH ([id number]) on 05/18/2023 2:25:54 PM Referred By: SEFERINO Confirmed By:GOSIA CM MD
--- NOTE | 2023-05-04 16:36 | DCINST_ITS ---
Discharge Instructions Diet Discharge Diet: No restrictions Activity Discharge Activity: Return to Normal Activity Weight Bearing Status: Full weight bearing Follow Up Care Test Results: Test results from this visit will be discussed in further detail at your follow- up appointment, if applicable. Discharge Plan Admission Admit Date/Time: 05/04/23 01:08 Primary Reason for Your Visit: atrial fibrillation Attending Provider: Steven Pollard Primary Care Provider: Galindo Coello Consulting Providers: Linda Hyman Instructions Additional Instructions / Restrictions: Monitor your blood pressure at home, if your top number is under 100, reduce the metoprolol to one half of the 25 mg tablet twice a day Watch for any signs of unusual bleeding such as nosebleeds, blood in the stool, or blood in the urine, if you see any of these things, call your family doctor Do not take any ibuprofen, aspirin, or Aleve while you are taking Eliquis Have your family physician recheck your thyroid functions in 2 to 3-weeks Discharge Orders/Prescriptions Prescriptions: New metoprolol tartrate 25 mg Tablet 25 mg PO BID Qty: 60 0RF Eliquis 5 mg tablet 5 mg PO BID Qty: 60 0RF Rx Instructions: start on 05/05/23 Continued mirtazapine 7.5 mg tablet 7.5 mg PO QHS PRN (Reason: sleeping) Referrals / Follow Up: Galindo Coello MD [Primary Care Provider] - In 1 Week Disposition Disposition (needs filled in before D/C Order can be placed): Home, Self Care
--- NOTE | 2023-05-04 16:41 | DS.PCM_ITS ---
Providers Date of Admission: 05/04/23 Date of Discharge: 05/04/23 Primary Care Physician: Dr. Galindo Coello MD Reason For Visit: PAF WITH RVR Diagnosis Discharge Diagnosis (1) Atrial fibrillation with RVR: Status: Acute Code(s): I48.91 - Unspecified atrial fibrillation Plan 1. Paroxysmal atrial fibrillation with RVR #2 hypokalemia Medications at Discharge Home Medications mirtazapine 7.5 mg tablet 7.5 mg PO QHS PRN sleeping 05/03/23 apixaban 5 mg tablet (Eliquis) 5 mg PO BID #60 tabs 05/04/23 metoprolol tartrate 25 mg tablet 25 mg PO BID #60 tabs 05/04/23 Hospital Course Operations None Procedures 2-D Echocardiogram Summary of Care Provided Minutes Spent on Discharge: 32 Hospital Course: This 73-year-old white female was seen in the emergency room at [facility] with complaint of chest pain and rapid heart beat, she stated that she had a previous episode similar to this in February 2023 that lasted for 3 hours and resolved. Evaluation in the emergency room included a CBC which was normal, troponin was also normal, chest x-ray showed no acute process, chemistry profile showed a potassium of 3.4, equipment monitor phototypesetting showed atrial fibrillation with a rate of approximately 140, she was given a fluid bolus and IV Cardizem, she was also started on a Cardizem drip. Patient was admitted to the hospital as stepdown status, she subsequently converted to normal sinus rhythm and was placed on a beta-juni. Echocardiogram was obtained which showed no abnormalities other than mild pulmonary hypertension.. Patient was given potassium replacement during her hospitalization. Patient's troponin bumped up to a high of 132 and then returned to normal, it was not felt that the patient had a non-STEMI. I discussed the patient going on anticoagulants with her and she was okay with this and I explained the risk of taking anticoagulants. On 05/05/2023, patient was seen and examined: On examination she appeared in good health and spirits, she does not appear to be in any distress. Vital signs as documented. Skin warm and dry and without overt rashes. Neck without JVD, thyroid appears normal, trachea is midline, neck is supple. Lungs clear, normal air movement was noted. Heart exam notable for regular rhythm, normal sounds and absence of murmurs, rubs or gallops. Abdomen unremarkable and without evidence of organomegaly, masses, or abdominal aortic enlargement, bowel sounds are present in all 4 quadrants, no abdominal tenderness was noted. Extremities nonedematous, no cyanosis was noted, no clubbing was noted. Neuro: Cranial nerves II through XII are grossly intact, no focal motor deficits were noted, sensation to light touch and pinprick is intact, motor exam 5/5 throughout. Psych: Patient is alert and oriented x3, she does not appear anxious or depressed, she does not appear agitated. Patient was discharged home in stable condition on 05/05/2023 Weight / BMI Weight Weight: 55.6 kg Body Mass Index (BMI) 21.0 ABG / Lab / Microbiology Data 05/04/23 02:26 05/04/23 02:26 Laboratory: Laboratory Results - last 24 hr 05/04/23 00:09: WBC 7.6, RBC 4.24, Hgb 12.5, Hct 39.1, MCV 92.2, MCH 29.5, MCHC 32.0, RDW Std Deviation 45.7 H, RDW Coeff of Adrianne 13.6, Plt Count 407, MPV 9.1, Immature Gran % (Auto) 0.400, Neut % (Auto) 64.7, Lymph % (Auto) 27.7, [place] % (Auto) 6.1, Eos % (Auto) 0.7, Baso % (Auto) 0.4, Absolute Neuts (auto) 4.9, Absolute Lymphs (auto) 2.10, Nucleated RBC % 0, Sodium 137, Potassium 3.4 L, Chloride 106, Carbon Dioxide 27.0, Anion Gap 4 L, BUN 18, Creatinine 0.54 L, Estim Creat Clear Calc 43.91, Est GFR (MDRD) Af Amer 142, Est GFR (MDRD) Non-Af 117, BUN/Creatinine Ratio 33.1 H, Glucose 135 H, Calcium 8.9, Magnesium 2.2, Troponin I High Sens 42, TSH 5.56 H 05/04/23 01:20: D-Dimer Quant (PE/DVT) < 0.27 L 05/04/23 02:26: WBC 7.2, RBC 4.21, Hgb 12.4, Hct 39.1, MCV 92.9, MCH 29.5, MCHC 31.7 L, RDW Std Deviation 46.8 H, RDW Coeff of Adrianne 13.7, Plt Count 389, MPV 9.0, Immature Gran % (Auto) 0.300, Neut % (Auto) 66.4, Lymph % (Auto) 26.8, [place] % (Auto) 5.2, Eos % (Auto) 0.7, Baso % (Auto) 0.6, Absolute Neuts (auto) 4.8, Absolute Lymphs (auto) 1.94, Nucleated RBC % 0, Sodium 138, Potassium 3.8, Chloride 109 H, Carbon Dioxide 29.0, Anion Gap 0 L, BUN 17, Creatinine 0.59, Estim Creat Clear Calc 43.91, Est GFR (MDRD) Af Amer 130, Est GFR (MDRD) Non-Af 107, BUN/Creatinine Ratio 29.0 H, Glucose 119 H, Hemoglobin A1c 5.4, Calcium 8.7, Total Bilirubin 0.40, AST 14 L, ALT 21, Alkaline Phosphatase 68, Troponin I High Sens 132 H*, Total Protein 6.6, Albumin 3.4, Globulin 3.2, Albumin/Globulin Ratio 1.1, Free T4 0.75 L 05/04/23 06:03: Troponin I High Sens 132 H* 05/04/23 15:45: Troponin I High Sens 52 Microbiology: Microbiology 05/04/23 01:20 Nasal Secretion SARS-CoV-2 Antigen (Rapid) - Final Radiography Diagnostic Testing: Radiology Impression Chest X-Ray 05/03/23 00:20 IMPRESSION: Mild bibasilar atelectasis, otherwise unremarkable exam. Electronically Signed: Fran Hemphill MD at 0:47 EDT , Echocardiogram 05/04/23 02:09 Interpretation Summary Normal LV size. Left ventricular systolic function is normal. The estimated ejection fraction is 55 %. Pulmonary artery systolic pressure is 28 mmHg. Ordering Physician: Linda Hyman Performed By: Fred Wu RCS D/C Instructions Discharge Diet: No restrictions Weight Bearing Status: Full weight bearing Meaningful Use Info Meaningful Use Diagnoses (Choose all that apply): None applicable Discharge Plan Admission Admit Date/Time: 05/04/23 01:08 Primary Reason for Your Visit: atrial fibrillation Attending Provider: Steven Pollard Primary Care Provider: Galindo Coello Consulting Providers: Linda Hyman Instructions Additional Instructions / Restrictions: Monitor your blood pressure at home, if your top number is under 100, reduce the metoprolol to one half of the 25 mg tablet twice a day Watch for any signs of unusual bleeding such as nosebleeds, blood in the stool, or blood in the urine, if you see any of these things, call your family doctor Do not take any ibuprofen, aspirin, or Aleve while you are taking Eliquis Have your family physician recheck your thyroid functions in 2 to 3-weeks Discharge Orders/Prescriptions Prescriptions: New metoprolol tartrate 25 mg Tablet 25 mg PO BID Qty: 60 0RF Eliquis 5 mg tablet 5 mg PO BID Qty: 60 0RF Rx Instructions: start on 05/05/23 Continued mirtazapine 7.5 mg tablet 7.5 mg PO QHS PRN (Reason: sleeping) Referrals / Follow Up: Galindo Coello MD [Primary Care Provider] - In 1 Week Disposition Disposition (needs filled in before D/C Order can be placed): Home, Self Care Charges/Coding Visit Charges Inpatient E&M: 03704 Disch Hosp >30min
[2023-05-04] MEDS: APIXABAN 5 MG TABLET PO (17:16)
== END 2023-05-04 17:20 | disposition home or self-care (01) | DRG 310 ==
LOC: ED 05-04 01:11 → ICU 05-04 01:52
PROVIDERS: Admitting Provider Family Medicine; Emergency Provider Emergency Medicine; PCP Family Medicine; Visit Provider Internal Medicine
DX: I48.0 Paroxysmal atrial fibrillation (principal); E87.6 Hypokalemia; Z82.49 Family history of ischemic heart disease and other diseases of the circulatory system
CPT/HCPCS: 71045; 80048; 80053; 83036; 83735; 84439; 84443; 84484; 85025; 85379; 87811; 93005; 93306; 94668; 99252; 99285; Q9957; A4216; G0463

== ENCOUNTER → 2023-06-19 | Outpatient (CLI) | payer MEDICARE, SELFPAY ==
--- NOTE | 2023-06-19 13:34 | BI_ITS ---
MAMMOGRAPHY - BILATERAL SCREENING REASON FOR EXAM: Female, 73 years old. Routine annual screening examination. PERTINENT HISTORY: Non-contributory. TECHNIQUE: Digital bilateral breast marilee (3D mammographic acquisition) in the CC and MLO projections. 2-D mediolateral oblique (MLO) and craniocaudad (CC) views of both breasts were obtained. CAD: Full Field Digital Mammography with Computer Added Detection was performed. COMPARISON: Comparison is made with prior study January 20, 2022 and January 14, 2021. FINDINGS: Breast Composition: The breasts are heterogeneously dense, which may obscure small masses. There are no dominant masses or suspicious calcifications. Stable small benign-appearing bilateral axillary lymph nodes. No other significant abnormalities are identified. There has been no significant change since the prior study. BI/SCRN MAMM (CAD)W/MARILEE BILAT IMPRESSION: Stable bilateral screening mammogram. Yearly follow-up mammogram recommended. (A) ASSESSMENT CATEGORY: BIRADS Category 2: Benign. A letter regarding these results will be sent to the patient by the facility within 30 days. Approximately 10% of breast cancers are not detected by mammography. A normal mammogram should not delay biopsy of a clinically suspicious abnormality. [id number] Electronically Signed: Roque Valdez MD at 9:54 EST ,
== END | disposition home or self-care (01) ==
LOC: OPBI 13:24
PROVIDERS: PCP Family Medicine; Referring Provider Family Medicine; Visit Provider Family Medicine
DX: Z12.31 Encounter for screening mammogram for malignant neoplasm of breast (principal)
CPT/HCPCS: 77063; 77067

== ENCOUNTER → 2023-07-11 | Outpatient (CLI) | payer MEDICARE, SELFPAY ==
--- NOTE | 2023-07-12 09:03 | STRESSREP ---
Stress Test Report Exercise myocardial perfusion stress test. 74-year-old lady with a history of atrial fibrillation Stress protocol: Resting EKG demonstrates normal sinus rhythm with a rate of 57 bpm resting blood pressure is 142/82 mmHg. The patient exercised according to the regular Alfonzo protocol for a total duration of 7 minutes and 16 seconds attaining a maximum heart rate of 112 bpm which was 75% of maximum predicted heart rate; the maximum workload was 10.1 metabolic equivalents. At rest there were no ST or T wave changes noted to suggest ischemia and at peak exercise upsloping ST changes only were noted which did not meet the criteria for ischemia. Nonspecific ST changes were noted. No clinical angina was noted the test was terminated due to the target heart rate being achieved/fatigue. The peak blood pressure was 144/88 mmHg. Rate-pressure product was 15,000. Myocardial perfusion protocol. 11.7 mCi of technetium 99m sestamibi was injected at rest. The patient exercised according to regular Alfonzo protocol for total duration of 7 minutes and 16 seconds and at peak exercise 34.1 mCi of technetium 99m sestamibi was injected stress images were obtained stress and rest images were reconstructed in comparing the short axis vertical long and horizontal long axis. Gated images were also obtained. Perfusion SPECT analysis: Review of the stress images demonstrate normal uptake of tracer noted in all areas of the myocardium. The resting images similarly demonstrate normal uptake of tracer noted in all areas of the myocardium. No areas of reversibility are noted to suggest ischemia no previous infarct was noted. Gated SPECT analysis: The gated ejection fraction is 83%. Conclusion: Normal exercise myocardial perfusion stress test at a high workload Preserved ejection fraction.
== END | disposition home or self-care (01) ==
LOC: CVS 06:54
PROVIDERS: PCP Family Medicine; Referring Provider Internal Medicine Cardiovascular Disease; Visit Provider Internal Medicine Cardiovascular Disease
DX: R94.31 Abnormal electrocardiogram [ECG] [EKG] (principal); I48.91 Unspecified atrial fibrillation
CPT/HCPCS: 78452; 93017; A9500; A4216

== ENCOUNTER → 2023-08-18 | Outpatient (CLI) | payer MEDICARE, SELFPAY ==
[2023-08-18 17:41] LABS: Absolute Lymphocyte Count 2.63 X10^3/uL (0.83-4.51); Absolute Neutrophil Count 6.3 X10^3/uL (2.0-7.7); Basophil# 0.03 X10^3/uL; Basophil% 0.3 % (0-1); Eosinophil# 0.03 X10^3/uL; Eosinophils% 0.3 % (0-5); Hematocrit 43.8 % (37-47); Hemoglobin 13.9 g/dL (12.0-15.0); Lymphocyte # 2.63 X10^3/ul (0.83-4.51); Lymphocyte % 28.2 % (19-41); Mean Corp Hgb Conc 31.7 g/dL (32-36); Mean Corpuscular Hgb 29.1 pg (27.0-32.0); Mean Corpuscular Volume 91.8 fL (81-99); Mean Platelet Vol. 8.7 fl (6.2-12.0); Monocyte# 0.33 X10^3/uL; Monocyte% 3.5 % (0-10); NRBC Flagged by Analyzer 0 % (0-5); Neutrophil # 6.29 X10^3/uL (2.7-7.7); Neutrophil % 67.4 % (47-70); Platelet Count 437 K/mm3 (150-450); RBC Distribution Width CV 13.1 % (11.6-14.6); RBC Distribution Width SD 44.8 fl (35.1-43.9); Red Blood Count 4.77 M/mm3 (4.2-5.4); White Blood Count 9.3 K/mm3 (4.4-11.0)
[2023-08-18 18:21] LABS: ALB/GLOB Ratio 1.1 RATIO (0.9-2.4); AST(SGOT) 16 U/L (15-37); Alanine Aminotransfer ALT/SGPT 22 U/L (13-56); Albumin, Serum 4.3 g/dL (3.2-5.0); Alkaline Phosphatase 66 U/L (45-117); Anion Gap 7 (5-15); BUN 12 mg/dL (7-18); BUN/Creat Ratio 18.1 RATIO (10-20); Calcium,Total 9.7 mg/dL (8.5-10.1); Chloride 99 mmol/L (98-107); Creatinine, Serum 0.66 mg/dL (0.55-1.02); EST Glomerular Filtration Rate 93 mL/min (>60); Est Glom Filt Rate - Afr Amer 113 mL/min (>60); Globulin 3.8 g/dL (2.2-4.2); Glucose 102 mg/dL (74-106); Potassium 3.5 mmol/L (3.5-5.1); Protein, Total 8.1 g/dL (6.4-8.2); Sodium Level 135 mmol/L (136-145); Troponin-I HS 6 pg/mL (3.0-54.0)
[2023-08-18 18:40] LABS: Microalbumin,Random Urine < 5.0 mg/L (NO RANGE EST.)
== END | disposition home or self-care (01) ==
LOC: LAB 17:23
PROVIDERS: PCP Family Medicine; Referring Provider Family Medicine; Visit Provider Family Medicine
DX: I48.91 Unspecified atrial fibrillation (principal); I10 Essential (primary) hypertension; R07.89 Other chest pain
CPT/HCPCS: 36415; 80053; 82043; 82570; 84484; 85025

== ENCOUNTER 2023-08-24 02:22 | Inpatient (IN) | payer MEDICARE, SELFPAY ==
[2023-08-24] VITALS (39 sets, daily range): BP systolic 81–138; BP diastolic 56–111; PULSE 53–147; RESP 14–26; TEMP 36.1–36.9; O2SAT 91–100; BMI 23.1; BMI 22.1
--- NOTE | 2023-08-24 02:36 | RAD_ITS ---
INDICATION: chest pain EXAMINATION/TECHNIQUE: X-RAY - XR Chest 1 View COMPARISON: 05/04/2023. FINDINGS: LINES/DEVICES: None. LUNGS: No consolidation or evidence of an effusion. No evidence of edema or a pneumothorax. Stable mild bibasilar atelectasis versus scarring. MEDIASTINUM AND CARDIOVASCULAR STRUCTURES: Cardiac silhouette is normal in size and contour. Mediastinum is unremarkable. BONES AND SOFT TISSUES: No acute abnormality. RAD/Chest 1 View (Portable) IMPRESSION: No evidence of acute cardiopulmonary disease. Electronically Signed: Luis Fernando Brito DO at 2:57 EST ,
--- NOTE | 2023-08-24 02:36 | EDS_ITS ---
HPI History of Present Illness Chief Complaint: Palpitations Informant: patient and EMS Onset/Context/Timing Onset: - (JPTA) Activity at onset: sudden, onset and activity on onset Timing: Continuous Quality: Positive for Heaviness Location: Substernal (Radiating into upper back between shoulder blades) Current Severity: Mild Maximum Severity: Moderate Worsened By: Nothing Relieved By: NTG Associated Symptoms: Positive for Diaphoresis (A little sweaty) and P alpitations; Negative for Nausea, Vomiting, Dyspnea, Cough, Fever or Lightheadedness Narrative Narrative: Patient was awakened in the middle of the night feeling like she was in another episode of A-fib along with chest heaviness. She had an episode that was short-lived a couple weeks ago and saw her doctor about it and was prescribed an additional blood pressure medication according to her, and nitroglycerin. So when this occurred this morning, she took the nitroglycerin, 2 tablets under the tongue. Subsequently EMS evaluated her and she was apparently hypotensive, that is improved now but her blood pressure still in the 90s. She did not feel near syncopal. Her chest discomfort is a little better but still there and she is not feeling the palpitations now although her heart is electrically in the 140s. [facility] Medical History Chronic insomnia Hearing deficit Osteoporosis Palpitation Paroxysmal atrial fibrillation Rhinitis SOB (shortness of breath) Home Medications apixaban 5 mg tablet (Eliquis) 5 mg PO BID #60 tabs 05/04/23 [Rx Last Taken Unknown] metoprolol tartrate 25 mg tablet 25 mg PO BID #60 tabs 05/04/23 [Rx Last Taken Unknown] glucosamine sulfate 500 mg tablet (Glucosamine) 500 mg PO DAILY 05/17/23 [History Last Taken Unknown] multivitamin 1 tab PO DAILY 05/17/23 [History Last Taken Unknown] calcium citrate 250 mg PO DAILY 05/24/23 [History Last Taken Unknown] mirtazapine 7.5 mg tablet 7.5 mg PO QHS PRN sleeping 05/24/23 [History Last Taken Unknown] Allergy/AdvReac Type Severity Reaction Status Date / Time No Known Allergies Allergy Verified 05/24/23 15:30 Family History Brother Atrial fibrillation Heart disease CAD (coronary artery disease) Pacemaker Brother Atrial fibrillation Pacemaker Heart disease Mother Heart disease CAD (coronary artery disease) Father Colon cancer Sister Cancer Brother Marilee's disease Surgical History History of dental surgery Social History household members: spouse Smoking Status: Never smoker alcohol intake: current alcohol intake frequency: a few times a week Alcohol type: wine substance use type: does not use ROS ROS ED Constitutional Constitutional ED: Reports sweats; Denies chills or fever(s) Eyes Eyes: Denies change in vision or diplopia ENT ENT ED: Denies rhinorrhea or sore throat Cardiovascular Cardiovascular: Reports chest pain, palpitations and racing heartbeat Respiratory/Chest Respiratory/Chest: Denies cough or dyspnea Gastrointestinal Gastrointestinal: Denies abdominal pain, diarrhea, nausea or vomiting Genitourinary Genitourinary ED: Denies dysuria or hematuria Musculoskeletal Musculoskeletal: Reports back pain; Denies neck pain Integumentary Denies abscess or rash Neurologic Neurologic: Denies headache(s), paresthesias or weakness Psychiatric Psychiatric: Denies anxiety or suicidal thoughts EXAM Physical Exam Const Vital Signs: 08/24/23 02:23 08/24/23 02:27 08/24/23 02:29 Temperature 97.6 F L Temperature Source Temporal Pulse Rate 147 H 132 H Pulse Rate [1 (Initial Baseline)] Pulse Rate [10] Pulse Rate [2] Pulse Rate [3] Pulse Rate [4] Pulse Rate [5] Pulse Rate [6] Pulse Rate [7] Pulse Rate [8] Pulse Rate [9] Respiratory Rate 19 H 16 Respiratory Rate [1 (Initial Baseline)] Respiratory Rate [10] Respiratory Rate [2] Respiratory Rate [3] Respiratory Rate [4] Respiratory Rate [5] Respiratory Rate [6] Respiratory Rate [7] Respiratory Rate [8] Respiratory Rate [9] Respiratory Effort Normal Non-Labored Blood Pressure 107/70 Blood Pressure [1 (Initial Baseline)] Blood Pressure [10] Blood Pressure [3] Blood Pressure [4] Blood Pressure [5] Blood Pressure [6] Blood Pressure [7] Blood Pressure [8] Blood Pressure [9] Blood Pressure Mean 82 Pulse Ox 96 96 Oxygen Delivery Method Room Air Oxygen Delivery Method [1 (Initial Baseline)] Oxygen Delivery Method [10] Oxygen Delivery Method [2] Oxygen Delivery Method [3] Oxygen Delivery Method [4] Oxygen Delivery Method [5] Oxygen Delivery Method [6] Oxygen Delivery Method [7] Oxygen Delivery Method [8] Oxygen Delivery Method [9] Oxygen Flow Rate (L/min) Oxygen Flow Rate (L/min) [1 (Initial Baseline)] Oxygen Flow Rate (L/min) [2] Oxygen Flow Rate (L/min) [3] Oxygen Flow Rate (L/min) [4] Oxygen Flow Rate (L/min) [5] Oxygen Flow Rate (L/min) [6] Oxygen Flow Rate (L/min) [7] Oxygen Flow Rate (L/min) [8] 08/24/23 02:42 08/24/23 02:51 08/24/23 04:05 Temperature Temperature Source Pulse Rate 137 H Pulse Rate [1 (Initial Baseline)] 121 H Pulse Rate [10] 139 H Pulse Rate [2] 129 H Pulse Rate [3] 133 H Pulse Rate [4] 125 H Pulse Rate [5] 127 H Pulse Rate [6] 132 H Pulse Rate [7] 127 H Pulse Rate [8] 132 H Pulse Rate [9] 140 H Respiratory Rate 18 Respiratory Rate [1 (Initial Baseline)] 16 Respiratory Rate [10] 18 Respiratory Rate [2] 16 Respiratory Rate [3] 16 Respiratory Rate [4] 18 Respiratory Rate [5] 19 H Respiratory Rate [6] 18 Respiratory Rate [7] 17 Respiratory Rate [8] 18 Respiratory Rate [9] 19 H Respiratory Effort Blood Pressure 90/78 Blood Pressure [1 (Initial Baseline)] 88/70 L Blood Pressure [10] 90/77 Blood Pressure [3] 111/94 H Blood Pressure [4] 111/58 L Blood Pressure [5] 88/75 L Blood Pressure [6] 81/70 L Blood Pressure [7] 108/64 Blood Pressure [8] 102/76 Blood Pressure [9] 90/67 Blood Pressure Mean 82 Pulse Ox 97 98 Oxygen Delivery Method Room Air Room Air Oxygen Delivery Method [1 (Initial Baseline)] Nasal Cannula Oxygen Delivery Method [10] Room Air Oxygen Delivery Method [2] Nasal Cannula Oxygen Delivery Method [3] Nasal Cannula Oxygen Delivery Method [4] Nasal Cannula Oxygen Delivery Method [5] Nasal Cannula Oxygen Delivery Method [6] Nasal Cannula Oxygen Delivery Method [7] Nasal Cannula Oxygen Delivery Method [8] Nasal Cannula Oxygen Delivery Method [9] Room Air Oxygen Flow Rate (L/min) Oxygen Flow Rate (L/min) [1 (Initial Baseline)] 2 Oxygen Flow Rate (L/min) [2] 2 Oxygen Flow Rate (L/min) [3] 2 Oxygen Flow Rate (L/min) [4] 2 Oxygen Flow Rate (L/min) [5] 2 Oxygen Flow Rate (L/min) [6] 2 Oxygen Flow Rate (L/min) [7] 2 Oxygen Flow Rate (L/min) [8] 2 08/24/23 04:04 08/24/23 04:07 08/24/23 04:10 Temperature 97.0 F L Temperature Source Pulse Rate 121 H Pulse Rate [1 (Initial Baseline)] Pulse Rate [10] Pulse Rate [2] Pulse Rate [3] Pulse Rate [4] Pulse Rate [5] Pulse Rate [6] Pulse Rate [7] Pulse Rate [8] Pulse Rate [9] Respiratory Rate 18 Respiratory Rate [1 (Initial Baseline)] Respiratory Rate [10] Respiratory Rate [2] Respiratory Rate [3] Respiratory Rate [4] Respiratory Rate [5] Respiratory Rate [6] Respiratory Rate [7] Respiratory Rate [8] Respiratory Rate [9] Respiratory Effort Blood Pressure 88/70 L Blood Pressure [1 (Initial Baseline)] Blood Pressure [10] Blood Pressure [3] Blood Pressure [4] Blood Pressure [5] Blood Pressure [6] Blood Pressure [7] Blood Pressure [8] Blood Pressure [9] Blood Pressure Mean Pulse Ox 100 Oxygen Delivery Method Room Air Nasal Cannula Nasal Cannula Oxygen Delivery Method [1 (Initial Baseline)] Oxygen Delivery Method [10] Oxygen Delivery Method [2] Oxygen Delivery Method [3] Oxygen Delivery Method [4] Oxygen Delivery Method [5] Oxygen Delivery Method [6] Oxygen Delivery Method [7] Oxygen Delivery Method [8] Oxygen Delivery Method [9] Oxygen Flow Rate (L/min) 2 2 Oxygen Flow Rate (L/min) [1 (Initial Baseline)] Oxygen Flow Rate (L/min) [2] Oxygen Flow Rate (L/min) [3] Oxygen Flow Rate (L/min) [4] Oxygen Flow Rate (L/min) [5] Oxygen Flow Rate (L/min) [6] Oxygen Flow Rate (L/min) [7] Oxygen Flow Rate (L/min) [8] 08/24/23 04:15 08/24/23 04:20 08/24/23 04:25 Temperature Temperature Source Pulse Rate Pulse Rate [1 (Initial Baseline)] Pulse Rate [10] Pulse Rate [2] Pulse Rate [3] Pulse Rate [4] Pulse Rate [5] Pulse Rate [6] Pulse Rate [7] Pulse Rate [8] Pulse Rate [9] Respiratory Rate Respiratory Rate [1 (Initial Baseline)] Respiratory Rate [10] Respiratory Rate [2] Respiratory Rate [3] Respiratory Rate [4] Respiratory Rate [5] Respiratory Rate [6] Respiratory Rate [7] Respiratory Rate [8] Respiratory Rate [9] Respiratory Effort Blood Pressure Blood Pressure [1 (Initial Baseline)] Blood Pressure [10] Blood Pressure [3] Blood Pressure [4] Blood Pressure [5] Blood Pressure [6] Blood Pressure [7] Blood Pressure [8] Blood Pressure [9] Blood Pressure Mean Pulse Ox Oxygen Delivery Method Nasal Cannula Nasal Cannula Nasal Cannula Oxygen Delivery Method [1 (Initial Baseline)] Oxygen Delivery Method [10] Oxygen Delivery Method [2] Oxygen Delivery Method [3] Oxygen Delivery Method [4] Oxygen Delivery Method [5] Oxygen Delivery Method [6] Oxygen Delivery Method [7] Oxygen Delivery Method [8] Oxygen Delivery Method [9] Oxygen Flow Rate (L/min) 2 2 2 Oxygen Flow Rate (L/min) [1 (Initial Baseline)] Oxygen Flow Rate (L/min) [2] Oxygen Flow Rate (L/min) [3] Oxygen Flow Rate (L/min) [4] Oxygen Flow Rate (L/min) [5] Oxygen Flow Rate (L/min) [6] Oxygen Flow Rate (L/min) [7] Oxygen Flow Rate (L/min) [8] 08/24/23 04:57 Temperature Temperature Source Pulse Rate 117 H Pulse Rate [1 (Initial Baseline)] Pulse Rate [10] Pulse Rate [2] Pulse Rate [3] Pulse Rate [4] Pulse Rate [5] Pulse Rate [6] Pulse Rate [7] Pulse Rate [8] Pulse Rate [9] Respiratory Rate 17 Respiratory Rate [1 (Initial Baseline)] Respiratory Rate [10] Respiratory Rate [2] Respiratory Rate [3] Respiratory Rate [4] Respiratory Rate [5] Respiratory Rate [6] Respiratory Rate [7] Respiratory Rate [8] Respiratory Rate [9] Respiratory Effort Blood Pressure 92/64 Blood Pressure [1 (Initial Baseline)] Blood Pressure [10] Blood Pressure [3] Blood Pressure [4] Blood Pressure [5] Blood Pressure [6] Blood Pressure [7] Blood Pressure [8] Blood Pressure [9] Blood Pressure Mean 73 Pulse Ox 95 Oxygen Delivery Method Room Air Oxygen Delivery Method [1 (Initial Baseline)] Oxygen Delivery Method [10] Oxygen Delivery Method [2] Oxygen Delivery Method [3] Oxygen Delivery Method [4] Oxygen Delivery Method [5] Oxygen Delivery Method [6] Oxygen Delivery Method [7] Oxygen Delivery Method [8] Oxygen Delivery Method [9] Oxygen Flow Rate (L/min) Oxygen Flow Rate (L/min) [1 (Initial Baseline)] Oxygen Flow Rate (L/min) [2] Oxygen Flow Rate (L/min) [3] Oxygen Flow Rate (L/min) [4] Oxygen Flow Rate (L/min) [5] Oxygen Flow Rate (L/min) [6] Oxygen Flow Rate (L/min) [7] Oxygen Flow Rate (L/min) [8] Positive well nourished and well developed General Appearance ED: well developed and NAD HEENT Reports moist mucous membranes normocephalic and atraumatic Eyes PERRL and EOMs intact bilaterally Neck full ROM and supple Resp normal respiratory effort and clear to auscultation bilaterally Effort and Inspection: able to speak in complete sentences Cardio regular rate, regular rhythm and no murmurs Rate: tachycardic Rhythm: abnormal rhythm irregularly irregular Peripheral Pulses: pulses 2+ throughout GI non-tender and non-distended Auscultation: normoactive bowel sounds Palpation: soft Back/Spine no CVA tenderness General Back: other FROM Extremity normal to inspection General Extremety ED: Negative for edema, pulses abnormal or tenderness General Extremity: Negative for edema or pulses abnormal Neuro oriented x3, CN's II-XII intact bilaterally and no sensory deficits noted Sensorium / Orientation: awake and alert Motor Exam: strength 5/5 throughout Skin no rashes or lesions noted and no wounds Heart Score History: Moderately Suspicious ECG: Nonspecific Repolarization Age: >/= 65 years Risk Factors: 1 or 2 Risk Factors Score: 5 MDM MDM MDM Narrative Medical decision making narrative: Patient is in rapid A-fib on the EKG with no acute injury pattern there, she was admitted last year for similar issues and seen as an outpatient, had a myocardial perfusion stress test which was normal. She has been anticoagulated on apixaban for some time. We discussed appropriate use of nitroglycerin, it is appropriate to do it for chest discomfort in certain contacts, however it can make A-fib with RVR faster, and I suspect is probably responsible for her transient hypotension. Therefore initially instead of trying to slow her down since she is doing well clinically, we gave her IV fluids. After 1.5 L of f luid, she is still mildly hypotensive. Her chest heaviness is still present but mild. She has been anticoagulated for at least 4 months. I recommend cardioversion given all of this. We discussed the pros and cons she is amenable to it and has been n.p.o. for over 6 hours. See the procedure note. Cardioversion was unsuccessful. Therefore digoxin 0.25 mg was given next after the patient awakened. This brought her heart rate down to the 110's but blood pressure still soft 92/64. Clinically doing well. Discussed with hospitalist, request that we give her amiodarone bolus and drip and admit her to PCU. History & Record Review Additional record(s) reviewed:: Prior outpatient record (Cardiology visit April. Myocardial perfusion stress June, negative/normal.) Lab Data Attestation: I reviewed the patient's lab results. Labs: Laboratory Results - last 24 hr 08/24/23 02:30 WBC 9.7 RBC 4.80 Hgb 14.4 Hct 43.9 MCV 91.5 MCH 30.0 MCHC 32.8 RDW Std Deviation 45.1 H RDW Coeff of Adrianne 13.3 Plt Count 439 MPV 9.5 Immature Gran % (Auto) 0.300 Neut % (Auto) 72.0 H Lymph % (Auto) 22.6 [place] % (Auto) 4.1 Eos % (Auto) 0.6 Baso % (Auto) 0.4 Absolute Neuts (auto) 7.0 Absolute Lymphs (auto) 2.19 Nucleated RBC % 0 Sodium 136 Potassium 4.1 Chloride 104 Carbon Dioxide 26.0 Anion Gap 6 BUN 17 Creatinine 0.57 Estim Creat Clear Calc 54.89 Est GFR (MDRD) Af Amer 135 Est GFR (MDRD) Non-Af 112 BUN/Creatinine Ratio 30.0 H Glucose 129 H Calcium 9.4 Troponin I High Sens 7 Radiography Diagnostic Testing: Clinical Impression(s) from Imaging Studies Chest X-Ray 08/24/23 02:36 IMPRESSION: No evidence of acute cardiopulmonary disease. Electronically Signed: Luis Fernando Brito, at 2:57 EST Reading Location ID and State: [facility] / [place] Tel , Service support , Rhythm Strip Rhythm Strip: A-fib Rate: 140 Ectopy: None EKG Initial EKG: Attestation: I personally reviewed and interpreted this EKG as follows: Interpretation: No Acute Injury Pattern, Atrial Fibrillation and Non- Specific ST Changes Prior EKG tracings: available for review Prior: Changed (NSR) Management Discussion w/another healthcare provider: Hospitalist ([place]) Procedures Procedural Sedation 1 (Initial Baseline): Consent Signed: Yes Any Problems With Anesthesia: No Sedation medication: Etomidate Dose: 10 Route: IV Total Moderate Sedation Units: 9 Maliampati Score: Class II ASA Classification: II Comment:: On monitor with prophylactic nasal cannula oxygenation and IV fluids, end-tidal CO2 monitoring, airway equipment at the bedside. Tolerated well with no complications. Other Procedures Procedure(s): Electrocardioversion: Pretreated with fentanyl 25 mcg and etomidate via procedural sedation as above, synchronized cardioversion with anterior/posterior pads 200 J biphasic x 2 unsuccessful with resulting A-fib with RVR, third attempt was made using 250 J, she went into sinus rhythm that lasted for about 2 seconds and then went right back into A-fib with RVR. Other attempts were thought to be futile. No complications and tolerated well. Critical Care Time Critical Care Time: Yes Critical care time (excluding procedures): 30-74 minutes (38 min, not including procedures), Including time spent:, Discussing w/Patient &/or Family/Type Cutter, Discussing w/Consultants, Arranging Admission or Transfer and Performing Direct Patient Care at Bedside Discharge Plan Triage Chief Complaint: Palpitations ED Provider: Denzel Scott Dx/Rx/DC Orders Clinical Impression: Atrial fibrillation with RVR, Chest pain Prescriptions: No Action multivitamin Tablet 1 tab PO DAILY glucosamine sulfate [Glucosamine] 500 mg tablet 500 mg PO DAILY Rx Instructions: administer with a meal calcium citrate 250 mg calcium tablet 250 mg PO DAILY metoprolol tartrate 25 mg Tablet 25 mg PO BID Qty: 60 0RF Eliquis 5 mg tablet 5 mg PO BID Qty: 60 0RF Rx Instructions: start on 05/05/23 mirtazapine 7.5 mg tablet 7.5 mg PO QHS PRN (Reason: sleeping) Primary Care Provider: Galindo Coello Referrals: Galindo Coello MD [Primary Care Provider] - Disposition Disposition: Acute Care Hospital [facility]
[2023-08-24] MEDS: 0.9% Normal Saline (1000mL) 1,000 ML 1000 ML IV (02:41)
[2023-08-24 02:43] LABS: Absolute Lymphocyte Count 2.19 X10^3/uL (0.83-4.51); Basophil# 0.04 X10^3/uL; Basophil% 0.4 % (0-1); Eosinophil# 0.06 X10^3/uL; Eosinophils% 0.6 % (0-5); Hematocrit 43.9 % (37-47); Hemoglobin 14.4 g/dL (12.0-15.0); Lymphocyte # 2.19 X10^3/ul (0.83-4.51); Lymphocyte % 22.6 % (19-41); Mean Corp Hgb Conc 32.8 g/dL (32-36); Mean Corpuscular Volume 91.5 fL (81-99); Mean Platelet Vol. 9.5 fl (6.2-12.0); Monocyte% 4.1 % (0-10); NRBC Flagged by Analyzer 0 % (0-5); Neutrophil # 6.97 X10^3/uL (2.7-7.7); Platelet Count 439 K/mm3 (150-450); RBC Distribution Width CV 13.3 % (11.6-14.6); RBC Distribution Width SD 45.1 fl (35.1-43.9); White Blood Count 9.7 K/mm3 (4.4-11.0)
[2023-08-24 03:05] LABS: Anion Gap 6 (5-15); BUN 17 mg/dL (7-18); Calcium,Total 9.4 mg/dL (8.5-10.1); Chloride 104 mmol/L (98-107); Creatinine, Serum 0.57 mg/dL (0.55-1.02); EST Glomerular Filtration Rate 112 mL/min (>60); Est Glom Filt Rate - Afr Amer 135 mL/min (>60); Estimated Creatinine Clearance 54.89 ml/min; Glucose 129 mg/dL (74-106); Potassium 4.1 mmol/L (3.5-5.1); Sodium Level 136 mmol/L (136-145); Troponin-I HS (w/2H Reflex) 7 pg/mL (3.0-54.0)
[2023-08-24] MEDS: fentaNYL 100 MCG/2 ML Ampul 25 MCG IV (04:02)
[2023-08-24] MEDS: Etomidate 20 MG/10 ML Vial 10 MG IV (04:04)
[2023-08-24 04:41] LABS: Reflex Troponin-HS? (from REC) Y
[2023-08-24] MEDS: Digoxin 250 MCG/ML Ampul IV (04:44)
--- NOTE | 2023-08-24 05:11 | HP.PCM.HOS_ITS ---
HPI - General General Date of Admission: 08/24/23 Date of Service: 08/24/23 Chief Complaint: Palpitations, chest pain, dyspnea. HPI Narrative The patient is a 73 y/o F w/ PMHx: PAF, Chronic insomnia, Anxiety and Depression, HTN, PAF, NSTEMI 05/22 admission with follow-up 07/12/2023 unremarkable stress test with elevated cardiac enzymes felt secondary to PAF with RVR at that time who now represents to the [facility] ED on 08/24/2023 with history of onset palpitations which came on suddenly with heart racing sensation and concurrent chest heaviness in the substernal region radiating into her upper back between her shoulder blades with associated diaphoresis similar to her previous episode with first onset with self administration of nitroglycerin unfortunately resulting in low blood pressure however it is improved upon ED arrival with some improvement of her discomfort but still ongoing palpitations. She notes the chest heaviness and discomfort into her back at its worst was rated 4 out of 10 in severity. She currently is significantly improved and chest discomfort free. Workup in the ED included T97.6, heart rate initially 147 with most recent repeat 132, BP 107/70, respiratory rate 19, 96% on room air, EKG with atrial fibrillation with RVR with nonspecific ST changes, CBC with WBC 9.7, hemoglobin 14.4, platelet 439 without marked shift, BMP with glucose 129 otherwise unremarkable, troponin 7, chest x-ray with no acute cardiopulmonary findings. In the ED patient ministered 1 L normal saline, digoxin 250 mcg x 1 following unsuccessful cardioversion. Patient administered etomidate 10 mg IV x 1 and fentanyl 25 mcg IV x 1 for attempted cardioversion. Given failed cardioversion per discussion with ED patient administered IV amiodarone bolus and started on drip. [facility] Medical History Chronic insomnia Hearing deficit Osteoporosis Paroxysmal atrial fibrillation Home Medications apixaban 5 mg tablet (Eliquis) 5 mg PO BID #60 tabs 05/04/23 [Rx Last Taken Unknown] metoprolol tartrate 25 mg tablet 25 mg PO BID #60 tabs 05/04/23 [Rx Last Taken Unknown] glucosamine sulfate 500 mg tablet (Glucosamine) 500 mg PO DAILY 05/17/23 [History Last Taken Unknown] multivitamin 1 tab PO DAILY 05/17/23 [History Last Taken Unknown] calcium citrate 250 mg PO DAILY 05/24/23 [History Last Taken Unknown] mirtazapine 7.5 mg tablet 7.5 mg PO QHS PRN sleeping 05/24/23 [History Last Taken Unknown] Allergy/AdvReac Type Severity Reaction Status Date / Time No Known Allergies Allergy Verified 05/24/23 15:30 Family History Brother Atrial fibrillation Heart disease CAD (coronary artery disease) Pacemaker Brother Atrial fibrillation Pacemaker Heart disease Mother Heart disease CAD (coronary artery disease) Father Colon cancer Sister Cancer Brother [place]'s disease Surgical History History of dental surgery Social History household members: spouse Smoking Status: Never smoker alcohol intake: current alcohol intake frequency: a few times a week Alcohol type: wine substance use type: does not use ROS ROS Narrative Admission Review of Systems: CONSTITUTIONAL: No weight loss, fever, chills, + weakness or fatigue. HEENT: Eyes: No visual loss, blurred vision, double vision or yellow sclerae. Ears, Nose, Throat: No hearing loss, sneezing, congestion, runny nose or sore throat. SKIN: No rash or itching, lesions, wounds. CARDIOVASCULAR: + Chest discomfort, heaviness, palpitations. No edema, orthopne a, syncopal events. RESPIRATORY: + Dyspnea. No cough or sputum, wheezing, hemoptysis. GASTROINTESTINAL: No anorexia, nausea, vomiting or diarrhea, abdominal pain, melena, BRBPR. GENITOURINARY: No dysuria, frequency, urgency or retention. NEUROLOGICAL: No headache, dizziness, syncope, paralysis, ataxia, numbness or tingling in the extremities, focal weakness, change in bowel or bladder control, seizure. MUSCULOSKELETAL: + muscle, back pain, joint pain or stiffness. HEMATOLOGIC: No anemia. + Easy bleeding/bruising. LYMPHATICS: No enlarged nodes. No history of splenectomy. PSYCHIATRIC: + History of anxiety and depression. ENDOCRINOLOGIC: No reports of sweating, cold or heat intolerance. No polyuria or polydipsia. ALLERGIES: No history of asthma, hives, eczema or rhinitis. Vital Signs Vital Signs Vital Signs: 08/24/23 02:23 08/24/23 02:27 08/24/23 02:29 Temperature 97.6 F L Temperature Source Temporal Pulse Rate 147 H 132 H Pulse Rate [1 (Initial Baseline)] Pulse Rate [10] Pulse Rate [2] Pulse Rate [3] Pulse Rate [4] Pulse Rate [5] Pulse Rate [6] Pulse Rate [7] Pulse Rate [8] Pulse Rate [9] Respiratory Rate 19 H 16 Respiratory Rate [1 (Initial Baseline)] Respiratory Rate [10] Respiratory Rate [2] Respiratory Rate [3] Respiratory Rate [4] Respiratory Rate [5] Respiratory Rate [6] Respiratory Rate [7] Respiratory Rate [8] Respiratory Rate [9] Respiratory Effort Normal Non-Labored Blood Pressure 107/70 Blood Pressure [1 (Initial Baseline)] Blood Pressure [10] Blood Pressure [3] Blood Pressure [4] Blood Pressure [5] Blood Pressure [6] Blood Pressure [7] Blood Pressure [8] Blood Pressure [9] Blood Pressure Mean 82 Pulse Ox 96 96 Oxygen Delivery Method Room Air Oxygen Delivery Method [1 (Initial Baseline)] Oxygen Delivery Method [10] Oxygen Delivery Method [2] Oxygen Delivery Method [3] Oxygen Delivery Method [4] Oxygen Delivery Method [5] Oxygen Delivery Method [6] Oxygen Delivery Method [7] Oxygen Delivery Method [8] Oxygen Delivery Method [9] Oxygen Flow Rate (L/min) Oxygen Flow Rate (L/min) [1 (Initial Baseline)] Oxygen Flow Rate (L/min) [2] Oxygen Flow Rate (L/min) [3] Oxygen Flow Rate (L/min) [4] Oxygen Flow Rate (L/min) [5] Oxygen Flow Rate (L/min) [6] Oxygen Flow Rate (L/min) [7] Oxygen Flow Rate (L/min) [8] 08/24/23 02:42 08/24/23 02:51 08/24/23 04:05 Temperature Temperature Source Pulse Rate 137 H Pulse Rate [1 (Initial Baseline)] 121 H Pulse Rate [10] 139 H Pulse Rate [2] 129 H Pulse Rate [3] 133 H Pulse Rate [4] 125 H Pulse Rate [5] 127 H Pulse Rate [6] 132 H Pulse Rate [7] 127 H Pulse Rate [8] 132 H Pulse Rate [9] 140 H Respiratory Rate 18 Respiratory Rate [1 (Initial Baseline)] 16 Respiratory Rate [10] 18 Respiratory Rate [2] 16 Respiratory Rate [3] 16 Respiratory Rate [4] 18 Respiratory Rate [5] 19 H Respiratory Rate [6] 18 Respiratory Rate [7] 17 Respiratory Rate [8] 18 Respiratory Rate [9] 19 H Respiratory Effort Blood Pressure 90/78 Blood Pressure [1 (Initial Baseline)] 88/70 L Blood Pressure [10] 90/77 Blood Pressure [3] 111/94 H Blood Pressure [4] 111/58 L Blood Pressure [5] 88/75 L Blood Pressure [6] 81/70 L Blood Pressure [7] 108/64 Blood Pressure [8] 102/76 Blood Pressure [9] 90/67 Blood Pressure Mean 82 Pulse Ox 97 98 Oxygen Delivery Method Room Air Room Air Oxygen Delivery Method [1 (Initial Baseline)] Nasal Cannula Oxygen Delivery Method [10] Room Air Oxygen Delivery Method [2] Nasal Cannula Oxygen Delivery Method [3] Nasal Cannula Oxygen Delivery Method [4] Nasal Cannula Oxygen Delivery Method [5] Nasal Cannula Oxygen Delivery Method [6] Nasal Cannula Oxygen Delivery Method [7] Nasal Cannula Oxygen Delivery Method [8] Nasal Cannula Oxygen Delivery Method [9] Room Air Oxygen Flow Rate (L/min) Oxygen Flow Rate (L/min) [1 (Initial Baseline)] 2 Oxygen Flow Rate (L/min) [2] 2 Oxygen Flow Rate (L/min) [3] 2 Oxygen Flow Rate (L/min) [4] 2 Oxygen Flow Rate (L/min) [5] 2 Oxygen Flow Rate (L/min) [6] 2 Oxygen Flow Rate (L/min) [7] 2 Oxygen Flow Rate (L/min) [8] 2 08/24/23 04:04 08/24/23 04:07 08/24/23 04:10 Temperature 97.0 F L Temperature Source Pulse Rate 121 H Pulse Rate [1 (Initial Baseline)] Pulse Rate [10] Pulse Rate [2] Pulse Rate [3] Pulse Rate [4] Pulse Rate [5] Pulse Rate [6] Pulse Rate [7] Pulse Rate [8] Pulse Rate [9] Respiratory Rate 18 Respiratory Rate [1 (Initial Baseline)] Respiratory Rate [10] Respiratory Rate [2] Respiratory Rate [3] Respiratory Rate [4] Respiratory Rate [5] Respiratory Rate [6] Respiratory Rate [7] Respiratory Rate [8] Respiratory Rate [9] Respiratory Effort Blood Pressure 88/70 L Blood Pressure [1 (Initial Baseline)] Blood Pressure [10] Blood Pressure [3] Blood Pressure [4] Blood Pressure [5] Blood Pressure [6] Blood Pressure [7] Blood Pressure [8] Blood Pressure [9] Blood Pressure Mean Pulse Ox 100 Oxygen Delivery Method Room Air Nasal Cannula Nasal Cannula Oxygen Delivery Method [1 (Initial Baseline)] Oxygen Delivery Method [10] Oxygen Delivery Method [2] Oxygen Delivery Method [3] Oxygen Delivery Method [4] Oxygen Delivery Method [5] Oxygen Delivery Method [6] Oxygen Delivery Method [7] Oxygen Delivery Method [8] Oxygen Delivery Method [9] Oxygen Flow Rate (L/min) 2 2 Oxygen Flow Rate (L/min) [1 (Initial Baseline)] Oxygen Flow Rate (L/min) [2] Oxygen Flow Rate (L/min) [3] Oxygen Flow Rate (L/min) [4] Oxygen Flow Rate (L/min) [5] Oxygen Flow Rate (L/min) [6] Oxygen Flow Rate (L/min) [7] Oxygen Flow Rate (L/min) [8] 08/24/23 04:15 08/24/23 04:20 08/24/23 04:25 Temperature Temperature Source Pulse Rate Pulse Rate [1 (Initial Baseline)] Pulse Rate [10] Pulse Rate [2] Pulse Rate [3] Pulse Rate [4] Pulse Rate [5] Pulse Rate [6] Pulse Rate [7] Pulse Rate [8] Pulse Rate [9] Respiratory Rate Respiratory Rate [1 (Initial Baseline)] Respiratory Rate [10] Respiratory Rate [2] Respiratory Rate [3] Respiratory Rate [4] Respiratory Rate [5] Respiratory Rate [6] Respiratory Rate [7] Respiratory Rate [8] Respiratory Rate [9] Respiratory Effort Blood Pressure Blood Pressure [1 (Initial Baseline)] Blood Pressure [10] Blood Pressure [3] Blood Pressure [4] Blood Pressure [5] Blood Pressure [6] Blood Pressure [7] Blood Pressure [8] Blood Pressure [9] Blood Pressure Mean Pulse Ox Oxygen Delivery Method Nasal Cannula Nasal Cannula Nasal Cannula Oxygen Delivery Method [1 (Initial Baseline)] Oxygen Delivery Method [10] Oxygen Delivery Method [2] Oxygen Delivery Method [3] Oxygen Delivery Method [4] Oxygen Delivery Method [5] Oxygen Delivery Method [6] Oxygen Delivery Method [7] Oxygen Delivery Method [8] Oxygen Delivery Method [9] Oxygen Flow Rate (L/min) 2 2 2 Oxygen Flow Rate (L/min) [1 (Initial Baseline)] Oxygen Flow Rate (L/min) [2] Oxygen Flow Rate (L/min) [3] Oxygen Flow Rate (L/min) [4] Oxygen Flow Rate (L/min) [5] Oxygen Flow Rate (L/min) [6] Oxygen Flow Rate (L/min) [7] Oxygen Flow Rate (L/min) [8] 08/24/23 04:57 Temperature Temperature Source Pulse Rate 117 H Pulse Rate [1 (Initial Baseline)] Pulse Rate [10] Pulse Rate [2] Pulse Rate [3] Pulse Rate [4] Pulse Rate [5] Pulse Rate [6] Pulse Rate [7] Pulse Rate [8] Pulse Rate [9] Respiratory Rate 17 Respiratory Rate [1 (Initial Baseline)] Respiratory Rate [10] Respiratory Rate [2] Respiratory Rate [3] Respiratory Rate [4] Respiratory Rate [5] Respiratory Rate [6] Respiratory Rate [7] Respiratory Rate [8] Respiratory Rate [9] Respiratory Effort Blood Pressure 92/64 Blood Pressure [1 (Initial Baseline)] Blood Pressure [10] Blood Pressure [3] Blood Pressure [4] Blood Pressure [5] Blood Pressure [6] Blood Pressure [7] Blood Pressure [8] Blood Pressure [9] Blood Pressure Mean 73 Pulse Ox 95 Oxygen Delivery Method Room Air Oxygen Delivery Method [1 (Initial Baseline)] Oxygen Delivery Method [10] Oxygen Delivery Method [2] Oxygen Delivery Method [3] Oxygen Delivery Method [4] Oxygen Delivery Method [5] Oxygen Delivery Method [6] Oxygen Delivery Method [7] Oxygen Delivery Method [8] Oxygen Delivery Method [9] Oxygen Flow Rate (L/min) Oxygen Flow Rate (L/min) [1 (Initial Baseline)] Oxygen Flow Rate (L/min) [2] Oxygen Flow Rate (L/min) [3] Oxygen Flow Rate (L/min) [4] Oxygen Flow Rate (L/min) [5] Oxygen Flow Rate (L/min) [6] Oxygen Flow Rate (L/min) [7] Oxygen Flow Rate (L/min) [8] Weight Weight: 135 lb 2.294 oz Body Mass Index (BMI) 23.1 Physical Exam Narrative Physical Examination: General: Awake, alert, oriented x 3 and cooperative, seated upright in the ED bed in no apparent distress, fatigued especially with recent sedation but improving, notes chest discomfort/heaviness notably improved but still feels palpitations slightly. Skin: Normal color, normal turgor, no icterus, no cyanosis. HEENT: AT/NC, EOMI, PERRLA, mildly dry MM, no carotid bruits or JVD noted. Lungs: CTA bilaterally, moderate effort, mild decrease BL bases, no rales, ronchi or wheezing. Heart: Irregular irregular; no gallop, rub audible. Abdomen: Soft, NTTP, ND, distant normal BS, no HSM. Extremities: No cyanosis, clubbing, or edema. Neurological: Patient awake, alert, oriented as noted, cognitive function intact; pupils equally reactive to light and accommodation, cranial nerves grossly normal, moving all 4 extremities, no focal deficits, strength improving however moderately globally decreased given recent sedation for attempted cardioversion and acute presentation. Psychiatric: Affect appears flat, fatigued, no acute evidence of depressive or anxiety feelings but does have underlying history. Results Lab / Micro Data 08/24/23 02:30 08/24/23 02:30 Labs: Laboratory Results - last 24 hr 08/24/23 02:30: WBC 9.7, RBC 4.80, Hgb 14.4, Hct 43.9, MCV 91.5, MCH 30.0, MCHC 32.8, RDW Std Deviation 45.1 H, RDW Coeff of Adrianne 13.3, Plt Count 439, MPV 9.5, Immature Gran % (Auto) 0.300, Neut % (Auto) 72.0 H, Lymph % (Auto) 22.6, [place] % (Auto) 4.1, Eos % (Auto) 0.6, Baso % (Auto) 0.4, Absolute Neuts (auto) 7.0, Absolute Lymphs (auto) 2.19, Nucleated RBC % 0, Sodium 136, Potassium 4.1, Chloride 104, Carbon Dioxide 26.0, Anion Gap 6, BUN 17, Creatinine 0.57, Estim Creat Clear Calc 54.89, Est GFR (MDRD) Af Amer 135, Est GFR (MDRD) Non-Af 112, BUN/Creatinine Ratio 30.0 H, Glucose 129 H, Calcium 9.4, Troponin I High Sens 7 Rhythm Strip Rhythm Strip: A-fib Rate: 140 Ectopy: None Imagaing Radiology Impression Chest X-Ray 08/24/23 02:36 IMPRESSION: No evidence of acute cardiopulmonary disease. Electronically Signed: Luis Fernando Brito, DO at 2:57 EST Reading Location ID and State: [facility] / [place] Tel , Service support , Assessment & Plan Assessment/Plan (1) Atrial fibrillation with RVR: PLAN: Plan The patient is a 73 y/o F w/ PMHx: PAF, Chronic insomnia, Anxiety and Depression, HTN, PAF, NSTEMI 05/22 admission with follow-up 07/12/2023 unremarkable stress test with elevated cardiac enzymes felt secondary to PAF w ith RVR at that time who now represents to the [facility] ED on 08/24/2023 with history of onset palpitations which came on suddenly with heart racing sensation and concurrent chest heaviness in the substernal region radiating into her upper back between her shoulder blades with associated diaphoresis similar to her previous episode with first onset with self administration of nitroglycerin unfortunately resulting in low blood pressure. #1. Paroxsymal atrial fibrillation w/ RVR: EKG in ED w/ atrial fibrillation w/ RVR. Patient administered 1L NS and digoxin 250 mcg x 1 in ED with attempted cardioversion with on 3rd time SR for mere seconds with recurrent PAF. Will admit to PCU, maintain on telemetry, obtain cardiac enzyme serial set, obtain magnesium level, 05/04/2023 echocardiogram with normal LV size, LV systolic function normal, EF 55%, PASP 28 mmHg thus will not repeat. As noted below TSH l evel elevated at that time and free T4 mildly decreased but from review of medications no regimen was initiated therefore we will repeat TSH and free T4 and if similar would be appropriate for regimen initiation at that time. Given low BP with ongoing PAF with RVR will continue amiodarone drip with Cardiology consultation. Will continue home Eliquis regimen. #2. Previous abnormal thyroid function studies: TSH 5.56 05/04/2023, Free T4 0.75 05/04/2023. Given TSH increased with free T4 mildly decreased consistent with primary hypothyroidism. Will repeat TSH and free T4 at this time as per most recent records patient does not appear to be on any medication or regimen. #3. Hyperglycemia, mild: Admission glucose 129, will obtain hemoglobin A1c to be cautious. #4. Hypertension: Given low BP from suspected NG, will temporarily hold oral HTN regimen as noted. #5. Anxiety and Depression/Chronic insomnia: We will continue patient home mirtazapine regimen. #6. DVT prophylaxis: Continue patient home Eliquis regimen. #7. CODE status: Patient notes that her is her decision-maker should anything acute occur and she is unable to make decisions for herself. Discussed CODE status at length including difference between FULL code, DNR-CCA and DNR-CC status. Following discussions about the differences in these status, requested Full Code status. Advanced Care Planning Face to Face Time: 16 minutes. Charges/Coding Visit Charges Inpatient E&M: 83784 Init Hosp L3 Procedures Hospitalists Procedures: 58728 Advncd Care Plan 30 Min
[2023-08-24 05:39] LABS: Troponin-I HS 16 pg/mL (3.0-54.0)
[2023-08-24] MEDS: Amiodarone 150 MG in Dextrose 5%-Water (100mL Bag) 100 ML 600 MG IV BOLUS (05:43)
[2023-08-24 05:44] LABS: Magnesium 2.2 mg/dL (1.6-2.6); T4 Free Direct 0.85 ng/dL (0.76-1.46)
[2023-08-24] MEDS: 0.9% Normal Saline (1000mL) 1,000 ML 150 ML IV (05:44)
[2023-08-24] MEDS: Amiodarone 360 MG in Dextrose 5% Viaflo Bag 192.8 ML 33.2999999999999972 MG CONT INF (06:02)
--- NOTE | 2023-08-24 07:24 | PCM.PN.HOSP ---
Reason for Visit Reason for Visit: Diagnoses Unspecified atrial fibrillation (08/24/23) Subjective Subjective Patient is a 73-year-old lady presented with chest pain and palpitations. Found to be in A-fib with RVR started on amiodarone drip after failed attempted cardioversion in the ER. Admitted to monitored bed for subsequent management Objective Data Objective Data Vital Signs: Vital Signs Temp Pulse Resp BP Pulse Ox O2 Del Method O2 Flow Rate 97.7 F L 75 17 102/68 100 Room Air 2 08/24/23 06:08 08/24/23 06:08 08/24/23 06:08 08/24/23 06:08 08/24/23 06:08 08/24/23 06:04 08/24/23 04:25 Oxygen Flow Rate (L/min) [8] 2 Oxygen Flow Rate (L/min) [7] 2 Oxygen Flow Rate (L/min) [6] 2 Oxygen Flow Rate (L/min) [5] 2 Oxygen Flow Rate (L/min) [4] 2 Oxygen Flow Rate (L/min) [3] 2 Oxygen Flow Rate (L/min) [2] 2 Oxygen Flow Rate (L/min) [1 ( 2 Initial Baseline)] Oxygen Flow Rate (L/min) 2 Oxygen Delivery Method [10] Room Air Oxygen Delivery Method [9] Room Air Oxygen Delivery Method [8] Nasal Cannula Oxygen Delivery Method [7] Nasal Cannula Oxygen Delivery Method [6] Nasal Cannula Oxygen Delivery Method [5] Nasal Cannula Oxygen Delivery Method [4] Nasal Cannula Oxygen Delivery Method [3] Nasal Cannula Oxygen Delivery Method [2] Nasal Cannula Oxygen Delivery Method [1 ( Nasal Cannula Initial Baseline)] Oxygen Delivery Method Room Air Weight: 61.3 kg Body Mass Index (BMI) 23.1 Intake & Output: Intake and Output for Last 24 Hours 08/22/23 08/23/23 08/24/23 23:59 23:59 23:59 Intake Total 1603 / 1603 Balance 1603 / 1603 Lab / Micro Data 08/24/23 02:30 08/24/23 02:30 Labs: Laboratory Results - last 24 hr 08/24/23 02:30: WBC 9.7, RBC 4.80, Hgb 14.4, Hct 43.9, MCV 91.5, MCH 30.0, MCHC 32.8, RDW Std Deviation 45.1 H, RDW Coeff of Adrianne 13.3, Plt Count 439, MPV 9.5, Immature Gran % (Auto) 0.300, Neut % (Auto) 72.0 H, Lymph % (Auto) 22.6, [place] % (Auto) 4.1, Eos % (Auto) 0.6, Baso % (Auto) 0.4, Absolute Neuts (auto) 7.0, Absolute Lymphs (auto) 2.19, Nucleated RBC % 0, Sodium 136, Potassium 4.1, Chloride 104, Carbon Dioxide 26.0, Anion Gap 6, BUN 17, Creatinine 0.57, Estim Creat Clear Calc 54.89, Est GFR (MDRD) Af Amer 135, Est GFR (MDRD) Non-Af 112, BUN/Creatinine Ratio 30.0 H, Glucose 129 H, Calcium 9.4, Troponin I High Sens 7 08/24/23 05:05: Magnesium 2.2, Troponin I High Sens 16, Free T4 0.85 Radiography Diagnostic Testing: Radiology Impression Chest X-Ray 08/24/23 02:36 IMPRESSION: No evidence of acute cardiopulmonary disease. Electronically Signed: Luis Fernando Brito DO at 2:57 EST Reading Location ID and State: [facility] / [place] Tel , Service support , Rhythm Strip Rhythm Strip: A-fib Rate: 140 Ectopy: None Physical Exam Narrative GENERAL: cooperative HEENT: Atraumatic; normocephalic EYES; Anicteric, Normal Conjunctiva NECK; supple, normal thyroid, RESPIRATORY: Diminished to auscultation CARDIOVASCULAR: Irregularly irregular GI: soft, normoactive bowel sounds, : No Renal angle tenderness; EXTREMITIES: No edema, no clubbing, MUSCULOSKELETAL: no muscle wasting NEURO: Awake; no lateralizing signs. SKIN: No Rash PSYCH; Flat affect Assessment & Plan Assessment/Plan (1) Atrial fibrillation with RVR: PLAN: Plan Patient is a 73-year-old lady presented with chest pain and palpitations. Found to be in A-fib with RVR started on amiodarone drip after failed attempted cardioversion in the ER. Admitted to monitored bed for subsequent management 1. Paroxysmal A-fib with RVR ? Attempted cardioversion in the ED unsuccessful patient started on amiodarone drip admitted to monitored bed for further management. Patient also systemic anticoagulation with apixaban continue. Consult was placed to cardiology 2. Essential hypertension ? Patient blood pressure was low on admission antihypertensives subsequently held 3. Depression with anxiety ? Patient is on mirtazapine at night 4. DVT prophylaxis ? On apixaban Time spent in the patient's overall evaluation,decision-making process, review of diagnostic data, adjustment of management, discussion with other providers, nursing nursing and ancillary staff involved in patient's care documentation, 40 Minutes Charges/Coding Visit Charges Inpatient E&M: 45868 Subs Hosp L2
--- NOTE | 2023-08-24 09:04 | PCM.CONS.C ---
Assessment & Plan Assessment/Plan (1) Atrial fibrillation with RVR: PLAN: The patient carries a history of paroxysmal atrial fibrillation. She failed cardioversion x 3 in the ED on this admission. She is tolerating her Eliquis without incident. She is currently being loaded with IV amiodarone her heart rate is coming down slowly. Her blood pressure is better this morning at 1 18-1 20 systolic. I would recommend that we attempt to control this rate with beta-juni therapy only and stop the ARB therapy for her blood pressure. Ideally I would not like to have her on long-term amiodarone but we will continue with the IV load and and switch her to oral loading until we can get the rate controlled and her blood pressure stabilized. I would then recommend that she be evaluated for more definitive therapy for this atrial fibrillation including a potential radiofrequency ablation or alternatively AV lorenzo ablation and permanent pacemaker implantation to control the tachyarrhythmia. She does have 2 brothers that have pacemakers and atrial fibrillation suggested they may have had this type of therapy of themselves The 2D echocardiogram was completed in April and it was essentially normal so I do not feel that needs to be repeated given the fact that her enzymes are negative and she does not have any new heart murmurs. I will discontinue the echo order. (2) Hypertension: QUALIFIERS: Hypertension type: primary hypertension Qualified Code(s): I10 - Essential (primary) hypertension PLAN: Plan Blood pressure has been low on this admission. This is probably multifactorial including her rapid ventricular response to her atrial fibs the anesthesia she received for the cardioversions and her dual antihypertensive therapy. Will allow for washout and then reinstitute metoprolol at titrated doses to control her heart rate. HPI Consult Data Date of Consult: 08/24/23 HPI Narrative Reason for Consultation: a.fib with RVR HPI Narrative: MARY HELMS, is a 73 F who presents with paroxysmal atrial fibrillation. The patient is well aware of when she goes into atrial fibs she was first diagnosed in April 2023. She came to the emergency department with recurrence last evening she is on long-term Eliquis and was cardioverted x 3 without success. Her blood pressure was low and she did not tolerate Cardizem or additional beta-juni therapy. The patient also recently been started on an ARB therapy. The patient was subsequently started on IV amnio loading with improved control of her heart rate in the 105-120. At rest the patient appears to be comfortable and in no apparent distress. The patient has tolerated her Eliquis therapy without incident. Troponin is negative x 3 sets. The patient denies any recent travel. She denies any lower extremity edema PND orthopnea that preceded this event. The patient does report symptoms and is keenly aware when she goes into atrial fibs. She has had this in the past and is spontaneously converted. Her only medical change was the addition of ARB therapy recently. The patient an echocardiogram which showed normal LV function normal left atrial size and no significant valvular abnormalities April 2023. A stress treadmill nuclear scan was done June 2023 which showed no evidence of ischemia at a high workload. The patient does have a history of hypertension. There is no history of pulmonary emboli there is no history of any chronic pulmonary disease or any recent viral infection. COUNTS INCLUDE 234 BEDS AT THE [facility] Medical History (Updated 08/24/23 @ 09:[address] Juno Wakefield MD) Chronic insomnia Hearing deficit Hypertension Non-smoker Osteoporosis Paroxysmal atrial fibrillation Home Medications apixaban 5 mg tablet (Eliquis) 5 mg PO BID a fib #60 tabs 05/04/23 [Rx Last Taken 08/23/23] metoprolol tartrate 25 mg tablet 25 mg PO BID a fib #60 tabs 05/04/23 [Rx Last Taken 08/23/23] glucosamine sulfate 500 mg tablet (Glucosamine) 500 mg PO DAILY supplement 05/17/23 [History Last Taken 08/23/23] multivitamin 1 tab PO DAILY supplement 05/17/23 [History Last Taken 08/23/23] calcium citrate 250 mg PO DAILY supplement 05/24/23 [History Last Taken 08/23/23] mirtazapine 7.5 mg tablet 7.5 mg PO QHS PRN sleeping 05/24/23 [History Last Taken Unknown] nitroglycerin 0.4 mg sublingual tablet 0.4 mg sublingual Q5M PRN chest pain 08/24/23 [History Last Taken 08/23/23] telmisartan 40 mg tablet 20 mg PO DAILY blood pressure 08/24/23 [History Last Taken 08/23/23] Allergy/AdvReac Type Severity Reaction Status Date / Time No Known Allergies Allergy Verified 05/24/23 15:30 Family History Brother Atrial fibrillation Heart disease CAD (coronary artery disease) Pacemaker Brother Atrial fibrillation Pacemaker Heart disease Mother Heart disease CAD (coronary artery disease) Father Colon cancer Sister Cancer Brother Rincon's disease Surgical History History of dental surgery Social History household members: spouse Smoking Status: Never smoker alcohol intake: current alcohol intake frequency: a few times a week Alcohol type: wine substance use type: does not use ROS Constitutional Constitutional: Reports as per HPI Eyes Eyes: Reports systems reviewed and no addt'l complaints, except as documented ENT HEENT: Reports systems reviewed and no addt'l complaints, except as documented Cardiovascular Cardiovascular: Reports as per HPI Respiratory/Chest Respiratory/Chest: Reports as per HPI Gastrointestinal Gastrointestinal: Reports systems reviewed and no addt'l complaints, except as documented Genitourinary Genitourinary: Reports systems reviewed and no addt'l complaints, except as documented Musculoskeletal Musculoskeletal: Reports systems reviewed and no addt'l complaints, except as documented Integumentary Integumentary: Reports systems reviewed and no addt'l complaints, except as documented Psychiatric Psychiatric: Reports systems reviewed and no addt'l complaints, except as documented Hematologic/Lymphatic Hematologic/Lymphatic: Reports systems reviewed and no addt'l complaints, except as documented Physical Exam Const oriented x3 HEENT normocephalic Eyes EOMs intact bilaterally Neck no JVD and no carotid bruits Chest inspection of chest normal Resp normal respiratory effort Auscultation: Negative for crackles, rales, rhonchi or wheezes Cardio S1 normal heart sound, S2 normal heart sound, no murmurs, no rub and no gallops Rate: tachycardic Rhythm: abnormal rhythm irregularly irregular Peripheral Pulses: pulses 2+ throughout GI soft to palpation and no bruits Extremity normal to inspection, no calf tenderness and no pedal edema Neuro Neuro Narrative: Alert and oriented x 3 Psych mental status grossly normal Risk Stratification Risk Stratification Applicable: No Charges/Coding Visit Charges Inpatient E&M: 26293 Init Hosp L3 Objective Data Vital Signs: Vital Signs Temp Pulse Resp BP Pulse Ox O2 Del Method O2 Flow Rate 97.6 F L 103 H 15 104/70 98 Room Air 2 08/24/23 08:31 08/24/23 08:31 08/24/23 08:31 08/24/23 08:31 08/24/23 08:31 08/24/23 08:31 08/24/23 04:25 Oxygen Flow Rate (L/min) [8] 2 Oxygen Flow Rate (L/min) [7] 2 Oxygen Flow Rate (L/min) [6] 2 Oxygen Flow Rate (L/min) [5] 2 Oxygen Flow Rate (L/min) [4] 2 Oxygen Flow Rate (L/min) [3] 2 Oxygen Flow Rate (L/min) [2] 2 Oxygen Flow Rate (L/min) [1 ( 2 Initial Baseline)] Oxygen Flow Rate (L/min) 2 Oxygen Delivery Method [10] Room Air Oxygen Delivery Method [9] Room Air Oxygen Delivery Method [8] Nasal Cannula Oxygen Delivery Method [7] Nasal Cannula Oxygen Delivery Method [6] Nasal Cannula Oxygen Delivery Method [5] Nasal Cannula Oxygen Delivery Method [4] Nasal Cannula Oxygen Delivery Method [3] Nasal Cannula Oxygen Delivery Method [2] Nasal Cannula Oxygen Delivery Method [1 ( Nasal Cannula Initial Baseline)] Oxygen Delivery Method Room Air Weight: 129 lb 3.054 oz Body Mass Index (BMI) 22.1 Intake & Output: Intake and Output for Last 24 Hours 08/22/23 08/23/23 08/24/23 23:59 23:59 23:59 Intake Total 2165.69 / 2165.69 Balance 2165.69 / 2165.69 Lab / Micro Data Attestation: I reviewed the patient's lab results. 08/24/23 02:30 08/24/23 02:30 Labs: Laboratory Results - last 24 hr 08/24/23 02:30: WBC 9.7, RBC 4.80, Hgb 14.4, Hct 43.9, MCV 91.5, MCH 30.0, MCHC 32.8, RDW Std Deviation 45.1 H, RDW Coeff of Adrianne 13.3, Plt Count 439, MPV 9.5, Immature Gran % (Auto) 0.300, Neut % (Auto) 72.0 H, Lymph % (Auto) 22.6, [place] % (Auto) 4.1, Eos % (Auto) 0.6, Baso % (Auto) 0.4, Absolute Neuts (auto) 7.0, Absolute Lymphs (auto) 2.19, Nucleated RBC % 0, Sodium 136, Potassium 4.1, Chloride 104, Carbon Dioxide 26.0, Anion Gap 6, BUN 17, Creatinine 0.57, Estim Creat Clear Calc 54.89, Est GFR (MDRD) Af Amer 135, Est GFR (MDRD) Non-Af 112, BUN/Creatinine Ratio 30.0 H, Glucose 129 H, Calcium 9.4, Troponin I High Sens 7 08/24/23 05:05: Magnesium 2.2, Troponin I High Sens 16, Free T4 0.85 Rhythm Strip Rhythm Strip: A-fib Rate: 140 Ectopy: None Cardiology Labs/Tests 08/24/23 02:30: WBC 9.7, RBC 4.80, Hgb 14.4, Hct 43.9, MCV 91.5, MCH 30.0, MCHC 32.8, Plt Count 439, MPV 9.5, Immature Gran % (Auto) 0.300, Neut % (Auto) 72.0 H, Lymph % (Auto) 22.6, [place] % (Auto) 4.1, Eos % (Auto) 0.6, Baso % (Auto) 0.4, Absolute Neuts (auto) 7.0, Nucleated RBC % 0, Sodium 136, Potassium 4.1, Chloride 104, Carbon Dioxide 26.0, Anion Gap 6, BUN 17, Creatinine 0.57, Est GFR (MDRD) Af Amer 135, Est GFR (MDRD) Non-Af 112, BUN/Creatinine Ratio 30.0 H, Glucose 129 H, Calcium 9.4 08/24/23 05:05: Magnesium 2.2 Rhythm: EKG: ECHO: Stress Test: Cardiac Cath: PCI: CT Surgery: Holter monitor: EPS: PPM: CXR: Chest CT Scan: Radiography Diagnostic Testing: Radiology Impression Chest X-Ray 08/24/23 02:36 IMPRESSION: No evidence of acute cardiopulmonary disease. Electronically Signed: Luis Fernando Brito DO at 2:57 EST , EKG Initial EKG: Attestation: I personally reviewed and interpreted this EKG as follows: Interpretation: Atrial fibrillation with rapid ventricular response no significant ST or T wave changes.
[2023-08-24] MEDS: APIXABAN 5 MG TABLET PO ×2 (09:18→21:34)
[2023-08-24] MEDS: Metoprolol Tartrate 25 MG Tablet PO (09:18)
[2023-08-24] MEDS: Amiodarone 360 MG in Dextrose 5% Viaflo Bag 192.8 ML 16.6999999999999993 MG CONT INF (12:07)
--- NOTE | 2023-08-24 15:17 | CASEMGMT ---
RN?CM?LEAD SHAREPOINT DEVELOPER?CM?to room to meet with patient for initial transition planning/care coordination?assessment.?RN?CM?introduced self and role at [facility].? Pt voices understanding and consents to?assessment?at this time.? Pt sitting up in chair in room in no distress at this time.? Pt is A/O at this time and answers all questions appropriately.?? Care providers, pharmacy, and demographics verified/updated at this time. PCP: Dr Galindo Coello Specialists: Dr Toribio-GI, Dr Potter-podiatry, Dr Salas-optometry Preferred Pharmacy: [facility] Insurance: [employer] Prescription Benefit:?Yes. Living Will/HPOA:? Pt has LW and HCPOA, who is her , Arnie LNOK: , Arnie. Step-sonFarooq Living Arrangements: Lives w/ in one-story home w/ramp entrance. Pt is independent w/ADL's, IADL's, and manages her own medications. Transportation:?Pt states drives self and states no transportation concerns at this time.? [place] DME: ? Denies using any DME and denies needs.? HHC/SNF: No hx of either. No needs identified. Pt wishes to return home and states has no concerns with going home at time of discharge.?CM?to follow for any further discharge planning/needs.? Pt voices no further concerns/needs at this time.? Advised pt to ask for?CM?if any further questions/concerns/needs arise.? Voices understanding. PLAN:??Home. Yuki ZEEN?RN?CM
--- NOTE | 2023-08-24 16:24 | PCM.PN.CARD ---
Subjective Subjective Patient spontaneously converted to normal sinus rhythm on IV amiodarone this afternoon. Transiently her heart rate was in the 50 bpm range is now in the 60 to 70 bpm range in sinus rhythm. The patient is asymptomatic blood pressure is 130/60. Objective Data Vital Signs: Vital Signs Temp Pulse Resp BP Pulse Ox O2 Del Method O2 Flow Rate 98.4 F 63 14 110/56 L 97 Room Air 2 08/24/23 12:00 08/24/23 15:00 08/24/23 15:00 08/24/23 15:00 08/24/23 15:00 08/24/23 15:00 08/24/23 04:25 Oxygen Flow Rate (L/min) [8] 2 Oxygen Flow Rate (L/min) [7] 2 Oxygen Flow Rate (L/min) [6] 2 Oxygen Flow Rate (L/min) [5] 2 Oxygen Flow Rate (L/min) [4] 2 Oxygen Flow Rate (L/min) [3] 2 Oxygen Flow Rate (L/min) [2] 2 Oxygen Flow Rate (L/min) [1 ( 2 Initial Baseline)] Oxygen Flow Rate (L/min) 2 Oxygen Delivery Method [10] Room Air Oxygen Delivery Method [9] Room Air Oxygen Delivery Method [8] Nasal Cannula Oxygen Delivery Method [7] Nasal Cannula Oxygen Delivery Method [6] Nasal Cannula Oxygen Delivery Method [5] Nasal Cannula Oxygen Delivery Method [4] Nasal Cannula Oxygen Delivery Method [3] Nasal Cannula Oxygen Delivery Method [2] Nasal Cannula Oxygen Delivery Method [1 ( Nasal Cannula Initial Baseline)] Oxygen Delivery Method Room Air Weight: 129 lb 3.054 oz Body Mass Index (BMI) 22.1 Intake & Output: Intake and Output for Last 24 Hours 08/22/23 08/23/23 08/24/23 23:59 23:59 23:59 Intake Total 2331.15 / 2331.15 Balance 2331.15 / 2331.15 Lab / Micro Data Attestation: I reviewed the patient's lab results. 08/24/23 02:30 08/24/23 02:30 Labs: Laboratory Results - last 24 hr 08/24/23 02:30: WBC 9.7, RBC 4.80, Hgb 14.4, Hct 43.9, MCV 91.5, MCH 30.0, MCHC 32.8, RDW Std Deviation 45.1 H, RDW Coeff of Adrianne 13.3, Plt Count 439, MPV 9.5, Immature Gran % (Auto) 0.300, Neut % (Auto) 72.0 H, Lymph % (Auto) 22.6, [place] % (Auto) 4.1, Eos % (Auto) 0.6, Baso % (Auto) 0.4, Absolute Neuts (auto) 7.0, Absolute Lymphs (auto) 2.19, Nucleated RBC % 0, Sodium 136, Potassium 4.1, Chloride 104, Carbon Dioxide 26.0, Anion Gap 6, BUN 17, Creatinine 0.57, Estim Creat Clear Calc 54.89, Est GFR (MDRD) Af Amer 135, Est GFR (MDRD) Non-Af 112, BUN/Creatinine Ratio 30.0 H, Glucose 129 H, Calcium 9.4, Troponin I High Sens 7 08/24/23 05:05: Magnesium 2.2, Troponin I High Sens 16, Free T4 0.85 Rhythm Strip Rhythm Strip: Sinus Rhythm Rate: 65 Ectopy: None Cardiology Labs/Tests 08/24/23 02:30: WBC 9.7, RBC 4.80, Hgb 14.4, Hct 43.9, MCV 91.5, MCH 30.0, MCHC 32.8, Plt Count 439, MPV 9.5, Immature Gran % (Auto) 0.300, Neut % (Auto) 72.0 H, Lymph % (Auto) 22.6, [place] % (Auto) 4.1, Eos % (Auto) 0.6, Baso % (Auto) 0.4, Absolute Neuts (auto) 7.0, Nucleated RBC % 0, Sodium 136, Potassium 4.1, Chloride 104, Carbon Dioxide 26.0, Anion Gap 6, BUN 17, Creatinine 0.57, Est GFR (MDRD) Af Amer 135, Est GFR (MDRD) Non-Af 112, BUN/Creatinine Ratio 30.0 H, Glucose 129 H, Calcium 9.4 08/24/23 05:05: Magnesium 2.2 Rhythm: EKG: ECHO: Stress Test: Cardiac Cath: PCI: CT Surgery: Holter monitor: EPS: PPM: CXR: Chest CT Scan: Radiography Diagnostic Testing: Radiology Impression Chest X-Ray 08/24/23 02:36 IMPRESSION: No evidence of acute cardiopulmonary disease. Electronically Signed: Luis Fernando Brito DO at 2:57 EST , Assessment & Plan Assessment/Plan (1) Atrial fibrillation with RVR: PLAN: The patient spontaneously converted to sinus rhythm on IV amiodarone. We had reinstituted her metoprolol tartrate 25 mg twice daily earlier today. The patient's blood pressures are in the 115-130 systolic range. The patient reported to me that she always goes in atrial fibrillation at night. She also reported that she has snoring by her 's report. I have asked the the nursing staff to closely monitor her O2 saturation this evening as she sleeps. If she drops her O2 sat in the 85% 80% range consideration should be given for formal sleep apnea study. PLAN: Plan 1. Discontinue the IV amiodarone after this bag is infused. 2. Increase metoprolol to 50 mg twice daily hold for systolic blood pressure less than 95. 3. Continue Eliquis. 4. Should the patient revert into atrial fibrillation we will add p.o. amiodarone 200 mg 3 times daily to her medical regimen. 5. The patient will be evaluated for possible radiofrequency ablation or AV node ablation and pacemaker implantation in the outpatient setting if she recurs in atrial fibrillation. The patient is symptomatic when she is in atrial fibs at a rapid ventricular response. 6. Discontinue her other blood pressure medicine the ARB therapy. 7. The patient should be able to be discharged to home tomorrow if she remains asymptomatic and in sinus rhythm. 8. Consider of sleep apnea study as noted above.
--- NOTE | 2023-08-24 16:48 | CHAPLAIN ---
Type of Pastoral Visit _x__ Initial Visit ___ Follow-up Visit ___ On-call Visit ___ General Patient Visit ___ Spiritual Assessment ___ Family Conference ___ Bereavement ___ Rapid Response ___ Code Blue ___ Other (describe below) Pastoral Care Referral From _x__ Patient ___ Family ___ Nurse ___ Physician ___ Grain Commodity Manager ___ Water Pollution Specialist ___ Other (describe below) Sacrament/Intervention _x__ Active listening ___ Anointing ___ Jain ___ Bereavement ___ Communion ___ Lyly exploration ___ _x__ Life review _x__ Prayer ___ Reconciliation ___ Sacrament of Sick _x__ Supportive presence ___ Wedding ___ Other (describe below) Pastoral Comments patient had this unexpected admission and has some frustrations at the timing of it all; spouse of patient is in another hospital and not expected to live long; pt states and appears to be handling it well, states that other family members are involved and given time and support; pt goal is to be discharged soon; offer of support, presence, and prayers are received in the affirmative
[2023-08-24] MEDS: Hydrocortisone 2.5% Ointment 20 gm tube 1 APPLIC TOPICAL (21:34)
[2023-08-24] MEDS: Metoprolol Tartrate 50 MG Tablet PO (21:34)
[2023-08-25] VITALS: BP 98/49; PULSE 60; RESP 18; TEMP 36.8; O2SAT 95
[2023-08-25 01:12] VITALS: BMI 22.1
[2023-08-25 04:00] VITALS: BP 125/63; PULSE 52; RESP 16; TEMP 36.2; O2SAT 96
[2023-08-25] MEDS: 0.9% Saline Lock 10 ML Syringe IV (05:08)
[2023-08-25 05:12] LABS: Absolute Lymphocyte Count 2.17 X10^3/uL (0.83-4.51); Absolute Neutrophil Count 4.2 X10^3/uL (2.0-7.7); Basophil# 0.03 X10^3/uL; Basophil% 0.4 % (0-1); Eosinophil# 0.08 X10^3/uL; Eosinophils% 1.2 % (0-5); Hematocrit 35.9 % (37-47); Hemoglobin 11.7 g/dL (12.0-15.0); Lymphocyte # 2.17 X10^3/ul (0.83-4.51); Lymphocyte % 31.8 % (19-41); Mean Corp Hgb Conc 32.6 g/dL (32-36); Mean Corpuscular Hgb 29.6 pg (27.0-32.0); Mean Corpuscular Volume 90.9 fL (81-99); Mean Platelet Vol. 8.9 fl (6.2-12.0); Monocyte% 4.4 % (0-10); NRBC Flagged by Analyzer 0 % (0-5); Neutrophil # 4.24 X10^3/uL (2.7-7.7); Neutrophil % 62.1 % (47-70); Platelet Count 323 K/mm3 (150-450); RBC Distribution Width CV 13.3 % (11.6-14.6); RBC Distribution Width SD 44.5 fl (35.1-43.9); Red Blood Count 3.95 M/mm3 (4.2-5.4); White Blood Count 6.8 K/mm3 (4.4-11.0)
[2023-08-25 05:34] LABS: Phosphorus 3.4 mg/dL (2.5-4.9)
[2023-08-25 05:42] LABS: Anion Gap 2 (5-15); BUN 16 mg/dL (7-18); BUN/Creat Ratio 28.5 RATIO (10-20); Calcium,Total 8.4 mg/dL (8.5-10.1); Chloride 112 mmol/L (98-107); Creatinine, Serum 0.56 mg/dL (0.55-1.02); EST Glomerular Filtration Rate 113 mL/min (>60); Est Glom Filt Rate - Afr Amer 136 mL/min (>60); Estimated Creatinine Clearance 54.89 ml/min; Glucose 100 mg/dL (74-106); Potassium 3.9 mmol/L (3.5-5.1); Sodium Level 140 mmol/L (136-145); Thyroid Stim Hormone (TSH) 3.37 uIU/mL (0.358-3.74)
--- NOTE | 2023-08-25 07:52 | PCM.PN.HOSP ---
Reason for Visit Reason for Visit: Diagnoses Essential (primary) hypertension (08/24/23) Unspecified atrial fibrillation (08/24/23) Subjective Subjective Patient converted whiles on amiodarone drip. Plan is for patient to be assessed for possible discharge Objective Data Objective Data Vital Signs: Vital Signs Temp Pulse Resp BP Pulse Ox O2 Del Method O2 Flow Rate 97.2 F L 52 L 16 125/63 H 96 Room Air 2 08/25/23 04:00 08/25/23 04:00 08/25/23 04:00 08/25/23 04:00 08/25/23 04:00 08/25/23 04:00 08/24/23 04:25 Oxygen Flow Rate (L/min) [8] 2 Oxygen Flow Rate (L/min) [7] 2 Oxygen Flow Rate (L/min) [6] 2 Oxygen Flow Rate (L/min) [5] 2 Oxygen Flow Rate (L/min) [4] 2 Oxygen Flow Rate (L/min) [3] 2 Oxygen Flow Rate (L/min) [2] 2 Oxygen Flow Rate (L/min) [1 ( 2 Initial Baseline)] Oxygen Flow Rate (L/min) 2 Oxygen Delivery Method [10] Room Air Oxygen Delivery Method [9] Room Air Oxygen Delivery Method [8] Nasal Cannula Oxygen Delivery Method [7] Nasal Cannula Oxygen Delivery Method [6] Nasal Cannula Oxygen Delivery Method [5] Nasal Cannula Oxygen Delivery Method [4] Nasal Cannula Oxygen Delivery Method [3] Nasal Cannula Oxygen Delivery Method [2] Nasal Cannula Oxygen Delivery Method [1 ( Nasal Cannula Initial Baseline)] Oxygen Delivery Method Room Air Weight: 58.5 kg Body Mass Index (BMI) 22.1 Intake & Output: Intake and Output for Last 24 Hours 08/23/23 08/24/23 08/25/23 23:59 23:59 23:59 Intake Total 2478.39 / 2478.39 Balance 2478.39 / 2478.39 Lab / Micro Data 08/25/23 05:04 08/25/23 05:04 Labs: Laboratory Results - last 24 hr 08/25/23 05:04: WBC 6.8, RBC 3.95 L, Hgb 11.7 L, Hct 35.9 L, MCV 90.9, MCH 29.6, MCHC 32.6, RDW Std Deviation 44.5 H, RDW Coeff of Adrianne 13.3, Plt Count 323, MPV 8.9, Immature Gran % (Auto) 0.100, Neut % (Auto) 62.1, Lymph % (Auto) 31.8, [place] % (Auto) 4.4, Eos % (Auto) 1.2, Baso % (Auto) 0.4, Absolute Neuts (auto) 4.2, Absolute Lymphs (auto) 2.17, Nucleated RBC % 0, Sodium 140, Potassium 3.9, Chloride 112 H, Carbon Dioxide 26.0, Anion Gap 2 L, BUN 16, Creatinine 0.56, Estim Creat Clear Calc 54.89, Est GFR (MDRD) Af Amer 136, Est GFR (MDRD) Non-Af 113, BUN/Creatinine Ratio 28.5 H, Glucose 100, Calcium 8.4 L, Phosphorus 3.4, Magnesium 2.0, TSH 3.37 Rhythm Strip Rhythm Strip: Sinus Rhythm Rate: 65 Ectopy: None Physical Exam Narrative GENERAL: cooperative HEENT: Atraumatic; normocephalic EYES; Anicteric, Normal Conjunctiva NECK; supple, normal thyroid, RESPIRATORY: Diminished to auscultation CARDIOVASCULAR: Regular S1-S2 GI: soft, normoactive bowel sounds, : No Renal angle tenderness; EXTREMITIES: No edema, no clubbing, MUSCULOSKELETAL: no muscle wasting NEURO: Awake; no lateralizing signs. SKIN: No Rash PSYCH; Flat affect Assessment & Plan Assessment/Plan (1) Atrial fibrillation with RVR: PLAN: Plan Patient is a 73-year-old lady presented with chest pain and palpitations. Found to be in A-fib with RVR started on amiodarone drip after failed attempted cardioversion in the ER. Admitted to monitored bed for subsequent management 1. Paroxysmal A-fib with RVR ? Attempted cardioversion in the ED unsuccessful patient started on amiodarone drip admitted to monitored bed for further management. Patient also systemic anticoagulation with apixaban continue. Consult was placed to cardiology ? 08/25/2023 patient converted was on amiodarone drip. Patient will be discharged on metoprolol 50 mg p.o. twice daily as recommended by cardiology 2. Essential hypertension ? Patient blood pressure was low on admission antihypertensives subsequently held 3. Depression with anxiety ? Patient is on mirtazapine at night 4. DVT prophylaxis ? On apixaban Time spent in the patient's overall evaluation,decision-making process, review of diagnostic data, adjustment of management, discussion with other providers, nursing nursing and ancillary staff involved in patient's care documentation, 35 Minutes Charges/Coding Visit Charges Inpatient E&M: 71375 Subs Hosp L2
--- NOTE | 2023-08-25 07:54 | DS.PCM_ITS ---
Providers Date of Admission: 08/24/23 Date of Discharge: 08/25/23 Primary Care Physician: Dr. Galindo Coello MD Consultations 08/24/23 08:20 Consult: Cardiology Routine Consulting Provider: Juno Wakefield Reason for Consult: PAF with RVR EMERGENT Consult: No MD Notified: Yes Date Notified: 08/24/23 Time Notified: 05:14 Method of Notification: Text Reason For Visit: PAF WITH RVR Diagnosis Discharge Diagnosis (1) Atrial fibrillation with RVR: Status: Acute Code(s): I48.91 - Unspecified atrial fibrillation Plan Patient is a 73-year-old lady presented with chest pain and palpitations. Found to be in A-fib with RVR started on amiodarone drip after failed attempted cardioversion in the ER. Admitted to monitored bed for subsequent management 1. Paroxysmal A-fib with RVR ? Attempted cardioversion in the ED unsuccessful patient started on amiodarone drip admitted to monitored bed for further management. Patient also systemic anticoagulation with apixaban continue. Consult was placed to cardiology ? 08/25/2023 patient converted was on amiodarone drip. Patient will be discharged on metoprolol 50 mg p.o. twice daily as recommended by cardiology 2. Essential hypertension ? Patient blood pressure was low on admission antihypertensives subsequently held 3. Depression with anxiety ? Patient is on mirtazapine at night 4. DVT prophylaxis ? On apixaban Time spent in the patient's overall evaluation,decision-making process, review of diagnostic data, adjustment of management, discussion with other providers, nursing nursing and ancillary staff involved in patient's care documentation, 35 Minutes Medications at Discharge Home Medications apixaban 5 mg tablet (Eliquis) 5 mg PO BID a fib #60 tabs 05/04/23 glucosamine sulfate 500 mg tablet (Glucosamine) 500 mg PO DAILY supplement 05/17/23 multivitamin 1 tab PO DAILY supplement 05/17/23 calcium citrate 250 mg PO DAILY supplement 05/24/23 mirtazapine 7.5 mg tablet 7.5 mg PO QHS PRN sleeping 05/24/23 nitroglycerin 0.4 mg sublingual tablet 0.4 mg sublingual Q5M PRN chest pain 08/24/23 telmisartan 40 mg tablet 20 mg PO DAILY blood pressure 08/24/23 metoprolol tartrate 50 mg tablet 50 mg PO BID #120 tabs 08/25/23 Physical Exam Narrative GENERAL: cooperative HEENT: Atraumatic; normocephalic EYES; Anicteric, Normal Conjunctiva NECK; supple, normal thyroid, RESPIRATORY: Diminished to auscultation CARDIOVASCULAR: Regular S1-S2 GI: soft, normoactive bowel sounds, : No Renal angle tenderness; EXTREMITIES: No edema, no clubbing, MUSCULOSKELETAL: no muscle wasting NEURO: Awake; no lateralizing signs. SKIN: No Rash PSYCH; Flat affect Weight / BMI Weight Weight: 58.5 kg Body Mass Index (BMI) 22.1 ABG / Lab / Microbiology Data 08/25/23 05:04 08/25/23 05:04 Laboratory: Laboratory Results - last 24 hr 08/25/23 05:04: WBC 6.8, RBC 3.95 L, Hgb 11.7 L, Hct 35.9 L, MCV 90.9, MCH 29.6, MCHC 32.6, RDW Std Deviation 44.5 H, RDW Coeff of Adrianne 13.3, Plt Count 323, MPV 8.9, Immature Gran % (Auto) 0.100, Neut % (Auto) 62.1, Lymph % (Auto) 31.8, [place] % (Auto) 4.4, Eos % (Auto) 1.2, Baso % (Auto) 0.4, Absolute Neuts (auto) 4.2, Absolute Lymphs (auto) 2.17, Nucleated RBC % 0, Sodium 140, Potassium 3.9, Chloride 112 H, Carbon Dioxide 26.0, Anion Gap 2 L, BUN 16, Creatinine 0.56, Estim Creat Clear Calc 54.89, Est GFR (MDRD) Af Amer 136, Est GFR (MDRD) Non-Af 113, BUN/Creatinine Ratio 28.5 H, Glucose 100, Calcium 8.4 L, Phosphorus 3.4, Magnesium 2.0, TSH 3.37 D/C Instructions Discharge Diet: No restrictions Discharge Activity: Return to Normal Activity Call your doctor if you observe: Fever of 101 or Higher, Shortness of breath, Fainting spells and Chest pain Meaningful Use Info Meaningful Use Diagnoses (Choose all that apply): None applicable Discharge Plan Admission Admit Date/Time: 08/24/23 05:13 Attending Provider: Jhony Joe Primary Care Provider: Galindo Coello Consulting Providers: Linda Hyman; Juno Wakefield Discharge Orders/Prescriptions Prescriptions: New metoprolol tartrate 50 mg Tablet 50 mg PO BID Qty: 120 0RF Continued multivitamin Tablet 1 tab PO DAILY glucosamine sulfate [Glucosamine] 500 mg tablet 500 mg PO DAILY Rx Instructions: administer with a meal calcium citrate 250 mg calcium tablet 250 mg PO DAILY Eliquis 5 mg tablet 5 mg PO BID Qty: 60 0RF Rx Instructions: start on 05/05/23 mirtazapine 7.5 mg tablet 7.5 mg PO QHS PRN (Reason: sleeping) nitroglycerin 0.4 mg tablet, sublingual 0.4 mg sublingual Q5M PRN (Reason: chest pain) telmisartan 40 mg tablet 20 mg PO DAILY Discontinued metoprolol tartrate 25 mg Tablet 25 mg PO BID Qty: 60 0RF Referrals / Follow Up: Galindo Coello MD [Primary Care Provider] - Within 2 Weeks Juno Wakefield MD [Med Staff - Active Staff] - Within 2 Weeks Disposition Disposition (needs filled in before D/C Order can be placed): Home, Self Care Charges/Coding Visit Charges Inpatient E&M: 60793 Disch Hosp >30min
[2023-08-25 07:55] VITALS: O2SAT 96
[2023-08-25 08:19] LABS: Hemoglobin A1c 5.6 % (3.8-5.6)
[2023-08-25 08:51] VITALS: BP 137/71; PULSE 68
[2023-08-25] MEDS: APIXABAN 5 MG TABLET PO (08:51)
[2023-08-25] MEDS: Metoprolol Tartrate 50 MG Tablet PO (08:51)
[2023-08-25 08:56] VITALS: BP 137/67; PULSE 67; RESP 18; TEMP 36.4; O2SAT 98
--- NOTE | 2023-08-25 09:09 | PCM.PN.CARD ---
Subjective Subjective Patient reports she is doing very well she denies any palpitations denies any chest tightness or squeezing. She has had no symptoms overnight. We did note that her O2 saturation dropped twice into the 79% range while she was sleeping. The patient does not have a diagnosis of obstructive sleep apnea but she has reported that majority of her atrial fibrillation starts when she is sleeping that wakes her up from sleep. The patient is up and ambulatory her blood pressure is tolerating the additional metoprolol. The IV amiodarone infusion has been completed. Objective Data Vital Signs: Vital Signs Temp Pulse Resp BP Pulse Ox O2 Del Method O2 Flow Rate 97.6 F L 67 18 137/67 H 98 Room Air 2 08/25/23 08:56 08/25/23 08:56 08/25/23 08:56 08/25/23 08:56 08/25/23 08:56 08/25/23 08:56 08/24/23 04:25 Oxygen Flow Rate (L/min) [8] 2 Oxygen Flow Rate (L/min) [7] 2 Oxygen Flow Rate (L/min) [6] 2 Oxygen Flow Rate (L/min) [5] 2 Oxygen Flow Rate (L/min) [4] 2 Oxygen Flow Rate (L/min) [3] 2 Oxygen Flow Rate (L/min) [2] 2 Oxygen Flow Rate (L/min) [1 ( 2 Initial Baseline)] Oxygen Flow Rate (L/min) 2 Oxygen Delivery Method [10] Room Air Oxygen Delivery Method [9] Room Air Oxygen Delivery Method [8] Nasal Cannula Oxygen Delivery Method [7] Nasal Cannula Oxygen Delivery Method [6] Nasal Cannula Oxygen Delivery Method [5] Nasal Cannula Oxygen Delivery Method [4] Nasal Cannula Oxygen Delivery Method [3] Nasal Cannula Oxygen Delivery Method [2] Nasal Cannula Oxygen Delivery Method [1 ( Nasal Cannula Initial Baseline)] Oxygen Delivery Method Room Air Weight: 128 lb 15.527 oz Body Mass Index (BMI) 22.1 Intake & Output: Intake and Output for Last 24 Hours 08/23/23 08/24/23 08/25/23 23:59 23:59 23:59 Intake Total 2478.39 / 2478.39 Balance 2478.39 / 2478.39 Lab / Micro Data Attestation: I reviewed the patient's lab results. 08/25/23 05:04 08/25/23 05:04 Labs: Laboratory Results - last 24 hr 08/25/23 05:04: WBC 6.8, RBC 3.95 L, Hgb 11.7 L, Hct 35.9 L, MCV 90.9, MCH 29.6, MCHC 32.6, RDW Std Deviation 44.5 H, RDW Coeff of Adrianne 13.3, Plt Count 323, MPV 8.9, Immature Gran % (Auto) 0.100, Neut % (Auto) 62.1, Lymph % (Auto) 31.8, [place] % (Auto) 4.4, Eos % (Auto) 1.2, Baso % (Auto) 0.4, Absolute Neuts (auto) 4.2, Absolute Lymphs (auto) 2.17, Nucleated RBC % 0, Sodium 140, Potassium 3.9, Chloride 112 H, Carbon Dioxide 26.0, Anion Gap 2 L, BUN 16, Creatinine 0.56, Estim Creat Clear Calc 54.89, Est GFR (MDRD) Af Amer 136, Est GFR (MDRD) Non-Af 113, BUN/Creatinine Ratio 28.5 H, Glucose 100, Hemoglobin A1c 5.6, Calcium 8.4 L, Phosphorus 3.4, Magnesium 2.0, TSH 3.37 Rhythm Strip Rhythm Strip: Sinus Rhythm Rate: 65 Ectopy: None Cardiology Labs/Tests 08/25/23 05:04: WBC 6.8, RBC 3.95 L, Hgb 11.7 L, Hct 35.9 L, MCV 90.9, MCH 29.6, MCHC 32.6, Plt Count 323, MPV 8.9, Immature Gran % (Auto) 0.100, Neut % (Auto) 62.1, Lymph % (Auto) 31.8, [place] % (Auto) 4.4, Eos % (Auto) 1.2, Baso % (Auto) 0.4, Absolute Neuts (auto) 4.2, Nucleated RBC % 0, Sodium 140, Potassium 3.9, Chloride 112 H, Carbon Dioxide 26.0, Anion Gap 2 L, BUN 16, Creatinine 0.56, Est GFR (MDRD) Af Amer 136, Est GFR (MDRD) Non-Af 113, BUN/Creatinine Ratio 28.5 H, Glucose 100, Hemoglobin A1c 5.6, Calcium 8.4 L, Phosphorus 3.4, Magnesium 2.0 Rhythm: EKG: ECHO: Stress Test: Cardiac Cath: PCI: CT Surgery: Holter monitor: EPS: PPM: CXR: Chest CT Scan: Physical Exam Const oriented x3 HEENT normocephalic Eyes EOMs intact bilaterally Neck no JVD Chest inspection of chest normal Resp normal respiratory effort Auscultation: Negative for crackles, rales, rhonchi or wheezes Cardio regular rate, regular rhythm, S1 normal heart sound, S2 normal heart sound, no murmurs, no rub and no gallops GI soft to palpation Extremity no pedal edema Skin no rashes or lesions noted Psych mental status grossly normal Assessment & Plan Assessment/Plan (1) Atrial fibrillation with RVR: PLAN: Patient is tolerating the additional increased dose of metoprolol. Blood pressure is well-controlled. She has not had hypotension with the added doses. Heart rate is in the 60 to 70 bpm range. She remains in sinus rhythm. The patient can be discharged to home. Metoprolol 50 mg twice daily will be instituted. I reviewed this with the patient in detail. The patient will follow-up in the [facility] office in approximately 2 weeks with our TARI. She is to remain on her Eliquis. The patient's O2 sats dropped twice last evening and with the history of the majority of her atrial fibs starting at nighttime when she is asleep I would recommend she undergo sleep apnea evaluation. I discussed this with Dr. Sanders and this should be arranged through the primary service. If she is unable to arrange that we will arrange it at the next office visit in 2 weeks. (2) Hypertension: QUALIFIERS: Hypertension type: primary hypertension Qualified Code(s): I10 - Essential (primary) hypertension PLAN: Blood pressure is adequately controlled today. If additional blood pressure control is needed we will reinstitute ARB therapy at the office visit in 2 weeks. I suspect with the metoprolol 50 mg twice daily her blood pressure should be adequately controlled. PLAN: Plan 1. Increase metoprolol to 50 mg twice daily and stop the ARB therapy and her other antihypertensive. 2. Evaluation for obstructive sleep apnea in the ambulatory setting. 3. Follow-up in the [facility] in 2 weeks. At that time we will consider titration of medical regiment as indicated based on her blood pressure. She will also be set up for sleep apnea evaluation that has not been accomplished by the primary service. Charges/Coding Visit Charges Inpatient E&M: 33414 Subs Hosp L2
--- NOTE | 2023-08-25 09:30 | CASEMGMT ---
RN PATEL NOTE: Pt being discharged. RN CM to room. Pt resting in bed. She denies having any discharge planning needs/concerns. Yuki ZEEN LEWIS CM
== END 2023-08-25 10:35 | disposition home or self-care (01) | DRG 310 ==
LOC: ED 05:19 → ICU 05:45
PROVIDERS: Admitting Provider Family Medicine; Emergency Provider Emergency Medicine; PCP Family Medicine; Visit Provider Internal Medicine
DX: I48.0 Paroxysmal atrial fibrillation (principal); F32.A Depression, unspecified; I10 Essential (primary) hypertension; F41.9 Anxiety disorder, unspecified; I25.2 Old myocardial infarction; F51.04 Psychophysiologic insomnia; R94.6 Abnormal results of thyroid function studies; Z79.01 Long term (current) use of anticoagulants; Z79.899 Other long term (current) drug therapy; Z82.49 Family history of ischemic heart disease and other diseases of the circulatory system
CPT/HCPCS: 71045; 80048; 83036; 83735; 84100; 84439; 84443; 84484; 85025; 92960; 93005; 94668; 99285; J7030; A4216

== ENCOUNTER 2023-09-01 01:57 | Emergency (ER) | payer MEDICARE, SELFPAY ==
[2023-09-01] VITALS (17 sets, daily range): BP systolic 78–126; BP diastolic 54–101; PULSE 70–133; RESP 15–23; TEMP 36.4–36.7; O2SAT 95–99; BMI 20.6
--- NOTE | 2023-09-01 02:43 | RAD_ITS ---
EXAM: XR CHEST, 1 VIEW CLINICAL INDICATION: chest pain TECHNIQUE: Frontal view of the chest. COMPARISON: Single view chest 08/24/2023 FINDINGS: LUNGS AND PLEURAL SPACES: Unremarkable. No consolidation or edema. No pneumothorax. No effusion. HEART: Unremarkable. Cardiac silhouette not enlarged. MEDIASTINUM: Central airways and mediastinal contour are unremarkable. BONES/JOINTS: Unremarkable. No acute fracture. SOFT TISSUES: Unremarkable. RAD/Chest 1 View (Portable) IMPRESSION: No radiographic evidence of acute cardiopulmonary disease. Electronically Signed: Fran Hemphill MD at 3:37 EST ,
[2023-09-01 03:01] LABS: Absolute Lymphocyte Count 2.15 X10^3/uL (0.83-4.51); Absolute Neutrophil Count 4.4 X10^3/uL (2.0-7.7); Basophil# 0.03 X10^3/uL; Basophil% 0.4 % (0-1); Eosinophil# 0.09 X10^3/uL; Eosinophils% 1.3 % (0-5); Hemoglobin 13.2 g/dL (12.0-15.0); Lymphocyte # 2.15 X10^3/ul (0.83-4.51); Lymphocyte % 30.3 % (19-41); Mean Corpuscular Hgb 30.2 pg (27.0-32.0); Mean Corpuscular Volume 91.5 fL (81-99); Mean Platelet Vol. 9.3 fl (6.2-12.0); Monocyte# 0.39 X10^3/uL; Monocyte% 5.5 % (0-10); NRBC Flagged by Analyzer 0 % (0-5); Neutrophil # 4.41 X10^3/uL (2.7-7.7); Neutrophil % 62.2 % (47-70); Platelet Count 409 K/mm3 (150-450); RBC Distribution Width CV 13.6 % (11.6-14.6); RBC Distribution Width SD 45.7 fl (35.1-43.9); Red Blood Count 4.37 M/mm3 (4.2-5.4); White Blood Count 7.1 K/mm3 (4.4-11.0)
[2023-09-01] MEDS: Amiodarone 150 MG in Dextrose 5%-Water (100mL Bag) 100 ML 600 MG IV BOLUS (03:19)
[2023-09-01 03:20] LABS: Anion Gap 3 (5-15); BUN 19 mg/dL (7-18); Calcium,Total 9.2 mg/dL (8.5-10.1); Chloride 103 mmol/L (98-107); Creatinine, Serum 0.63 mg/dL (0.55-1.02); EST Glomerular Filtration Rate 98 mL/min (>60); Est Glom Filt Rate - Afr Amer 119 mL/min (>60); Glucose 121 mg/dL (74-106); Potassium 4.2 mmol/L (3.5-5.1); Sodium Level 134 mmol/L (136-145)
[2023-09-01] MEDS: 0.9% Normal Saline (1000mL) 1,000 ML 500 ML IV (03:25)
[2023-09-01] MEDS: Amiodarone 360 MG in Dextrose 5% Viaflo Bag 192.8 ML 33.2999999999999972 MG CONT INF (03:38)
--- NOTE | 2023-09-01 03:42 | ED.VIS.CHEST ---
HPI History of Present Illness Chief Complaint: Palpitations Informant: patient Narrative Narrative: 73-year-old female history of atrial fibrillation presenting to the emergency room with A-fib with RVR. Patient states she was awoken from her sleep with a pressure sensation in her chest and her sensation that her heart was racing. This is happened to her last week and 1 other time. She is currently on Eliquis and takes metoprolol that was increased to 50 mg twice a day during her last hospitalization. During her last ER visit which led to the hospitalization she underwent cardioversion which did not successfully resulted in return to sinus rhythm. She was placed on amiodarone drip and converted about 12 hours later. The patient states that the gel on the pads from the cardioversion caused an allergic reaction he had she had severe itching of the skin of the chest. Patient would like to not have a cardioversion if possible. The patient also notes that her is in hospice and she would like to try to be at home if possible. She is supposed to see cardiology (Dr. Wakefield) later today. She states that she is very restorationist about taking her Eliquis and has not missed any doses recently. [facility] Medical History Chronic insomnia Hearing deficit Hypertension Non-smoker Osteoporosis Paroxysmal atrial fibrillation Home Medications apixaban 5 mg tablet (Eliquis) 5 mg PO BID a fib #60 tabs 05/04/23 [Rx Last Taken 08/23/23] glucosamine sulfate 500 mg tablet (Glucosamine) 500 mg PO DAILY supplement 05/17/23 [History Last Taken 08/23/23] multivitamin 1 tab PO DAILY supplement 05/17/23 [History Last Taken 08/23/23] calcium citrate 250 mg PO DAILY supplement 05/24/23 [History Last Taken 08/23/23] mirtazapine 7.5 mg tablet 7.5 mg PO QHS PRN sleeping 05/24/23 [History Last Taken Unknown] nitroglycerin 0.4 mg sublingual tablet 0.4 mg sublingual Q5M PRN chest pain 08/24/23 [History Last Taken 08/23/23] metoprolol tartrate 50 mg tablet 50 mg PO BID #120 tabs 08/25/23 [Rx Last Taken Unknown] ascorbic acid (vitamin C) 500 mg tablet,extended release (C Complex) 500 mg PO DAILY 09/01/23 [History Last Taken Unknown] metoprolol tartrate 75 mg tablet 75 mg PO BID #30 tabs 09/01/23 [Rx Last Taken Unknown] Allergy/AdvReac Type Severity Reaction Status Date / Time No Known Allergies Allergy Verified 08/29/23 09:28 Family History Brother Atrial fibrillation Heart disease CAD (coronary artery disease) Pacemaker Brother Atrial fibrillation Pacemaker Heart disease Mother Heart disease CAD (coronary artery disease) Father Colon cancer Sister Cancer Brother Clarke's disease Surgical History History of dental surgery Social History household members: spouse Smoking Status: Never smoker alcohol intake: current alcohol intake frequency: a few times a week Alcohol type: wine substance use type: does not use ROS ROS ED Constitutional Constitutional ED: Denies chills, fever(s) or weight loss Eyes Eyes: Denies change in vision or diplopia ENT ENT ED: Denies ear pain, rhinorrhea or sore throat Cardiovascular Cardiovascular: Reports chest pain, palpitations and racing heartbeat; Denies orthopnea Respiratory/Chest Respiratory/Chest: Reports dyspnea; Denies cough or orthopnea Gastrointestinal Gastrointestinal: Denies abdominal pain, diarrhea, nausea or vomiting Genitourinary Genitourinary ED: Denies dysuria, hematuria or urinary frequency Musculoskeletal Musculoskeletal: Denies arthralgias or myalgias Integumentary Denies abscess or rash Neurologic Neurologic: Denies headache(s) or weakness Psychiatric Psychiatric: Denies anxiety, depression, suicidal ideation or suicidal thoughts Endocrine Endocrinology: Denies polydipsia, polyphagia or polyuria Allergic/Immunologic Allergic/Immunologic ED: Denies mouth swelling, tongue swelling or urticaria EXAM Physical Exam Const Vital Signs: 09/01/23 02:03 09/01/23 02:06 09/01/23 02:07 Temperature 97.6 F L 97.6 F L Temperature Source Oral Oral Pulse Rate 133 H 130 H Pulse Rate [1 (Initial Baseline)] Pulse Rate [2] Pulse Rate [3] Respiratory Rate 15 16 Respiratory Rate [1 (Initial Baseline)] Respiratory Rate [2] Respiratory Rate [3] Respiratory Effort Normal Non-Labored Blood Pressure 113/84 H 113/84 H Blood Pressure [1 (Initial Baseline)] Blood Pressure [2] Blood Pressure [3] Blood Pressure Mean 93 93 Blood Pressure Source Pulse Ox 97 96 Oxygen Delivery Method Room Air Room Air Oxygen Delivery Method [1 (Initial Baseline)] Oxygen Delivery Method [2] Oxygen Delivery Method [3] Oxygen Flow Rate (L/min) Oxygen Flow Rate (L/min) [2] Oxygen Flow Rate (L/min) [3] 09/01/23 03:19 09/01/23 03:34 09/01/23 03:38 Temperature Temperature Source Pulse Rate 130 H 89 105 H Pulse Rate [1 (Initial Baseline)] Pulse Rate [2] Pulse Rate [3] Respiratory Rate 23 H 17 15 Respiratory Rate [1 (Initial Baseline)] Respiratory Rate [2] Respiratory Rate [3] Respiratory Effort Blood Pressure 93/64 78/54 L 96/64 Blood Pressure [1 (Initial Baseline)] Blood Pressure [2] Blood Pressure [3] Blood Pressure Mean 73 62 74 Blood Pressure Source Monitor Monitor Pulse Ox 96 95 96 Oxygen Delivery Method Room Air Oxygen Delivery Method [1 (Initial Baseline)] Oxygen Delivery Method [2] Oxygen Delivery Method [3] Oxygen Flow Rate (L/min) Oxygen Flow Rate (L/min) [2] Oxygen Flow Rate (L/min) [3] 09/01/23 03:54 09/01/23 04:30 09/01/23 05:01 Temperature Temperature Source Pulse Rate 70 108 H 110 H Pulse Rate [1 (Initial Baseline)] Pulse Rate [2] Pulse Rate [3] Respiratory Rate 18 17 19 H Respiratory Rate [1 (Initial Baseline)] Respiratory Rate [2] Respiratory Rate [3] Respiratory Effort Blood Pressure 99/68 94/59 L 101/66 Blood Pressure [1 (Initial Baseline)] Blood Pressure [2] Blood Pressure [3] Blood Pressure Mean 78 70 77 Blood Pressure Source Monitor Pulse Ox 96 95 97 Oxygen Delivery Method Room Air Oxygen Delivery Method [1 (Initial Baseline)] Oxygen Delivery Method [2] Oxygen Delivery Method [3] Oxygen Flow Rate (L/min) Oxygen Flow Rate (L/min) [2] Oxygen Flow Rate (L/min) [3] 09/01/23 06:09 09/01/23 06:32 09/01/23 06:30 Temperature 98.0 F Temperature Source Pulse Rate 103 H 85 Pulse Rate [1 (Initial Baseline)] 107 H Pulse Rate [2] 86 Pulse Rate [3] 111 H Respiratory Rate 17 17 Respiratory Rate [1 (Initial Baseline)] 18 Respiratory Rate [2] 16 Respiratory Rate [3] 15 Respiratory Effort Blood Pressure 99/73 100/70 Blood Pressure [1 (Initial Baseline)] 100/70 Blood Pressure [2] 114/88 H Blood Pressure [3] 117/101 H Blood Pressure Mean 81 Blood Pressure Source Pulse Ox 95 98 Oxygen Delivery Method Room Air Nasal Cannula Oxygen Delivery Method [1 (Initial Baseline)] Room Air Oxygen Delivery Method [2] Nasal Cannula Oxygen Delivery Method [3] Nasal Cannula Oxygen Flow Rate (L/min) Oxygen Flow Rate (L/min) [2] 2 Oxygen Flow Rate (L/min) [3] 2 09/01/23 06:42 09/01/23 06:50 09/01/23 06:55 Temperature Temperature Source Pulse Rate Pulse Rate [1 (Initial Baseline)] Pulse Rate [2] Pulse Rate [3] Respiratory Rate Respiratory Rate [1 (Initial Baseline)] Respiratory Rate [2] Respiratory Rate [3] Respiratory Effort Blood Pressure Blood Pressure [1 (Initial Baseline)] Blood Pressure [2] Blood Pressure [3] Blood Pressure Mean Blood Pressure Source Pulse Ox Oxygen Delivery Method Nasal Cannula Room Air Room Air Oxygen Delivery Method [1 (Initial Baseline)] Oxygen Delivery Method [2] Oxygen Delivery Method [3] Oxygen Flow Rate (L/min) 2 Oxygen Flow Rate (L/min) [2] Oxygen Flow Rate (L/min) [3] Positive well nourished and well developed General Appearance ED: well developed HEENT Reports normocephalic, head/scalp atraumatic and moist mucous membranes Eyes PERRL and EOMs intact bilaterally Neck no lymphadenopathy, supple and no JVD Resp normal respiratory effort and clear to auscultation bilaterally Cardio no murmurs Rate: tachycardic Rhythm: abnormal rhythm irregularly irregular GI normal to inspection, nondistended, normoactive bowel sounds and non-tender Palpation: soft Back/Spine no CVA tenderness and normal ROM Extremity normal to inspection General Extremety ED: Negative for edema General Extremity: Negative for edema Neuro oriented x3 and CN's II-XII intact bilaterally Sensorium / Orientation: alert Motor Exam: strength 5/5 throughout Psych mental status grossly normal Mood & Affect: Negative for depressed or tearful Skin no rashes or lesions noted and no wounds MDM MDM MDM Narrative Medical decision making narrative: EKG shows A-fib with RVR. The ST-T wave abnormalities seen tonight are present on her last EKG and most likely represent rate dependent ischemia. Basic blood work was essentially negative showing a glucose of 121. 119 potassium 4.2 sodium 134 hemoglobin 13.2 platelet count 4 9. My independent trepidation of chest x-ray is no acute process. Patient noted to be with soft blood pressure 96/64. This was a problem her last ER visit as well. She it was not significantly changed with fluids. Spoke with the patient regarding treatment. She would like to try to avoid cardioversion if possible as well as hospitalization. She understands that this may be difficult. I spoke with cardiology (Dr. Mendez) and we went ahead and gave her some IV fluids as we started the amiodarone bolus and drip. Patients heart rate came down 70s to 110. Occasionally would have a sinus beat but ultimately reverted back to A-fib. We continued the drip but no conversion was made. Patient provided informed written consent for procedural sedation for cardioversion. In short the patient received fentanyl pretreatment and then etomidate for sedation. Once adequate sedation was achieved a 200 J synchronized shock was delivered which did not convert the patient. A 300 J synchronized shock was also delivered and unfortunately did not convert her as well. Patient was allowed to recover. It is clear to me that she needs a sleep study and very likely has sleep apnea. However she did not have any reported episodes of hypoxia. No hypotension was noted Case was discussed with hospitalist and cardiology (Dr. Wakefield). As the patient really wants to be home with her and hospice were to give her 50 mg of metoprolol here and stop the drip. Will wait an hour and get her up and walking. If she feels that she can go home or if she converts we can discharge her. Otherwise we can admit her. History & Record Review Discussion w/independent historian: Patient Additional record(s) reviewed:: Prior inpatient record, Prior outpatient record, Prior ED visit and Prior labs Lab Data Attestation: I reviewed the patient's lab results. Labs: Laboratory Results - last 24 hr 09/01/23 02:44 WBC 7.1 RBC 4.37 Hgb 13.2 Hct 40.0 MCV 91.5 MCH 30.2 MCHC 33.0 RDW Std Deviation 45.7 H RDW Coeff of Adrianne 13.6 Plt Count 409 MPV 9.3 Immature Gran % (Auto) 0.300 Neut % (Auto) 62.2 Lymph % (Auto) 30.3 [place] % (Auto) 5.5 Eos % (Auto) 1.3 Baso % (Auto) 0.4 Absolute Neuts (auto) 4.4 Absolute Lymphs (auto) 2.15 Nucleated RBC % 0 Sodium 134 L Potassium 4.2 Chloride 103 Carbon Dioxide 28.0 Anion Gap 3 L BUN 19 H Creatinine 0.63 Estim Creat Clear Calc 56.50 Est GFR (MDRD) Af Amer 119 Est GFR (MDRD) Non-Af 98 BUN/Creatinine Ratio 30.0 H Glucose 121 H Calcium 9.2 Radiography Diagnostic Testing: Clinical Impression(s) from Imaging Studies Chest X-Ray 09/01/23 02:43 IMPRESSION: No radiographic evidence of acute cardiopulmonary disease. Electronically Signed: Fran Hemphill MD at 3:37 EST Reading Location ID and State: [facility] / [place] Tel , Service support , EKG Initial EKG: Attestation: I personally reviewed and interpreted this EKG as follows: Comments: A-fib with a rapid ventricular response of [address] and T wave abnormality noted most likely rate dependent Prior EKG tracings: available for review Prior: Unchanged Management Discussion w/another healthcare provider: Hospitalist (Dr. Garay) and Tire Manager (Cardiology (Dr. Wakefield and Dr. Mendez)) Procedures Procedural Sedation 1 (Initial Baseline): Consent Signed: Yes Any Problems With Anesthesia: No You/Your family experience fever (hyperthermia) w/anesthesia: No Sedation medication: Fentanyl Dose: 8 (mg) Route: IV Total Moderate Sedation Units: 15 (min) Maliampati Score: Class II ASA Classification: II Critical Care Time Critical Care Time: Yes Critical care time (excluding procedures): 30-74 minutes (35), Including time spent:, Discussing w/Patient &/or Family/Mold Closer, Discussing w/Consultants, Arranging Admission or Transfer and Performing Direct Patient Care at Bedside Discharge Plan Triage Chief Complaint: Palpitations ED Provider: David Sandra Dx/Rx/DC Orders Clinical Impression: Anticoagulated, Paroxysmal atrial fibrillation Prescriptions: New metoprolol tartrate 75 mg tablet 75 mg PO BID Qty: 30 0RF No Action multivitamin Tablet 1 tab PO DAILY glucosamine sulfate [Glucosamine] 500 mg tablet 500 mg PO DAILY Rx Instructions: administer with a meal calcium citrate 250 mg calcium tablet 250 mg PO DAILY Eliquis 5 mg tablet 5 mg PO BID Qty: 60 0RF Rx Instructions: start on 05/05/23 mirtazapine 7.5 mg tablet 7.5 mg PO QHS PRN (Reason: sleeping) nitroglycerin 0.4 mg tablet, sublingual 0.4 mg sublingual Q5M PRN (Reason: chest pain) metoprolol tartrate 50 mg Tablet 50 mg PO BID Qty: 120 0RF ascorbic acid (vitamin C) [C Complex] 500 mg tablet extended release 500 mg PO DAILY Primary Care Provider: Galindo Coello Referrals: Galindo Coello MD [Primary Care Provider] - Activity Restrictions/Additional Instructions: It is very likely you have sleep apnea and would recommend a sleep study. Please contact your primary care doctor or cardiology to get this set up. Take metoprolol 75 mg twice a day if you find that you are in A-fib. If you are not in A-fib go back to 50 mg twice a day. Please call paper plate machine tender office to schedule early follow-up next week. Disposition Disposition: Home, Self Care
[2023-09-01] MEDS: Metoprolol Tartrate 5 MG/5 ML Vial IV (04:59)
[2023-09-01] MEDS: fentaNYL 100 MCG/2 ML Ampul 25 MCG IV (06:36)
[2023-09-01] MEDS: Etomidate 20 MG/10 ML Vial 10 MG IV (06:37)
[2023-09-01] MEDS: Metoprolol Tartrate 50 MG Tablet PO (07:14)
== END 2023-09-01 08:27 | disposition home or self-care (01) ==
PROVIDERS: Emergency Provider Emergency Medicine; PCP Family Medicine; Visit Provider Emergency Medicine
DX: I48.0 Paroxysmal atrial fibrillation (principal); I10 Essential (primary) hypertension; L23.89 Allergic contact dermatitis due to other agents; Z79.01 Long term (current) use of anticoagulants; Z63.79 Other stressful life events affecting family and household; Z79.899 Other long term (current) drug therapy; Z63.4 Disappearance and death of family member
CPT/HCPCS: 99283; 71045; 80048; 85025; 93005; J7030; A4216

== ENCOUNTER 2023-09-01 12:33 | Inpatient (IN) | payer MEDICARE, SELFPAY ==
[2023-09-01] VITALS (15 sets, daily range): BP systolic 90–128; BP diastolic 53–101; PULSE 49–130; RESP 10–26; TEMP 36.6–36.8; O2SAT 94–100; BMI 20.2; BMI 20.9
--- NOTE | 2023-09-01 13:07 | ED.VIS.CHEST ---
HPI History of Present Illness Chief Complaint: Palpitations Detail of Chief Complaint: A-fib with accelerated rate. Informant: patient Onset/Context/Timing Onset: Today Narrative Narrative: 73-year-old female known history of A-fib. She is on Eliquis. She was actually seen in the emergency department in the last 12 hours. Had a negative workup. They attempted to cardiovert her in the past it really never worked well for her. Her was in hospice and she went to be discharged home and was stable at the time so they let her go and she went to hospice as her this morning. After that occurred she went in A-fib RVR they checked her heart rate it was in the 120-130 range and sent her back down to the ER. She denies any other complaints. Prior Similar Symptoms: Yes Recent Illness/Hospitalization: Yes CVD Risk Factors: Negative for Hypertension, Diabetes, Hypercholesterolemia or Family History 1' </=55 PE Risk Factors: Negative for Recent Travel/Surgery, Recent Immobilization, Prior DVT or PE, Cancer or OCP + Smoking + >/=35 TAD Risk Factors: Negative for Marfan's Syndrome PFSH PFS Medical History Chronic insomnia Hearing deficit Hypertension Non-smoker Osteoporosis Paroxysmal atrial fibrillation Home Medications apixaban 5 mg tablet (Eliquis) 5 mg PO BID a fib #60 tabs 05/04/23 [Rx Last Taken 08/23/23] glucosamine sulfate 500 mg tablet (Glucosamine) 500 mg PO DAILY supplement 05/17/23 [History Last Taken 08/23/23] multivitamin 1 tab PO DAILY supplement 05/17/23 [History Last Taken 08/23/23] calcium citrate 250 mg PO DAILY supplement 05/24/23 [History Last Taken 08/23/23] mirtazapine 7.5 mg tablet 7.5 mg PO QHS PRN sleeping 05/24/23 [History Last Taken Unknown] nitroglycerin 0.4 mg sublingual tablet 0.4 mg sublingual Q5M PRN chest pain 08/24/23 [History Last Taken 08/23/23] metoprolol tartrate 50 mg tablet 50 mg PO BID BLOOD PRESSURE #120 tabs 08/25/23 [Rx Last Taken Unknown] ascorbic acid (vitamin C) 500 mg tablet,extended release (C Complex) 500 mg PO DAILY SUPPLEMENT 09/01/23 [History Last Taken Unknown] metoprolol tartrate 75 mg tablet 75 mg PO BID #30 tabs 09/01/23 [Rx Last Taken Unknown] telmisartan 40 mg tablet mg 09/01/23 [History Last Taken Unknown] Allergy/AdvReac Type Severity Reaction Status Date / Time No Known Allergies Allergy Verified 09/01/23 12:34 Family History Brother Atrial fibrillation Heart disease CAD (coronary artery disease) Pacemaker Brother Atrial fibrillation Pacemaker Heart disease Mother Heart disease CAD (coronary artery disease) Father Colon cancer Sister Cancer Brother Marilee's disease Surgical History History of dental surgery Social History household members: spouse Smoking Status: Never smoker alcohol intake: current alcohol intake frequency: a few times a week Alcohol type: wine substance use type: does not use ROS ROS ED ROS Narrative Denies recent illness. Review of Systems ROS Unobtainable: Denies due to encephalopathy Constitutional Constitutional ED: Denies chills or fever(s) Eyes Eyes: Reports none ENT ENT ED: Denies ear pain Cardiovascular Cardiovascular: Reports as per HPI, palpitations and racing heartbeat; Denies chest pain Respiratory/Chest Respiratory/Chest: Denies cough or dyspnea Gastrointestinal Gastrointestinal: Denies abdominal pain Genitourinary Genitourinary ED: Denies dysuria or hematuria Musculoskeletal Musculoskeletal: Denies arthralgias or back pain Integumentary Denies abscess or Abrasions Neurologic Neurologic: Denies headache(s), paresthesias or weakness Psychiatric Psychiatric: Denies anxiety or depression Endocrine Endocrinology: Denies cold intolerance or heat intolerance Hematologic/Lymphatic Hematologic/Lymphatic: Denies easy bleeding, easy bruising or lymphadenopathy Allergic/Immunologic Allergic/Immunologic ED: Denies mouth swelling, tongue swelling or urticaria EXAM Physical Exam Narrative Exam Narrative: Well-appearing 73-year-old female. 2 female friends present in room. Currently blood pressure 96/72 or heart rates A-fib around 100. She does not look septic toxic currently no distress. She is tolerating this well. Sitting upright in bed. Pulse ox 98% on room air no hypoxia. H EENT exam unremarkable. Lungs clear to auscultation bilaterally. Heart A-fib rate around 100 no murmur. Abdomen soft nontender. Moving all 4 extremities. Calves are nontender without edema or cords. Const Vital Signs: 09/01/23 12:34 09/01/23 13:18 Temperature 97.8 F Temperature Source Temporal Pulse Rate 95 130 H Respiratory Rate 14 26 H Blood Pressure 96/72 116/95 H Blood Pressure Mean 80 102 Pulse Ox 98 99 Oxygen Delivery Method Room Air Room Air Positive well nourished and well developed; Negative for cachectic, contractures or unkempt General Appearance ED: well developed; Negative for unkempt, cachectic, contractures or pallor Nutritional Appearance: Negative for cachectic HEENT Reports moist mucous membranes normocephalic and atraumatic; Negative for trauma or tenderness Eyes PERRL and EOMs intact bilaterally General Eye ED: Negative for pale conjunctiva, scleral icterus or other Neck no lymphadenopathy, supple and no JVD General: Negative for tenderness Chest Wall inspection of chest normal and palpation of chest normal Chest: Negative for tenderness or other Resp normal respiratory effort and clear to auscultation bilaterally Effort and Inspection: Negative for respiratory distress Auscultation: Negative for rales, rhonchi or wheezes Cardio Negative for regular rate or regular rhythm Rhythm: abnormal rhythm irregularly irregular GI normal to inspection, nondistended, normoactive bowel sounds, soft to palpation, non-tender, non-distended and no masses; Negative for hepatosplenomegaly Back/Spine no CVA tenderness and no thoracic nor lumbar tenderness General Back: Negative for CVA tenderness or other Cervical Spine: Negative for cervical spine tenderness Extremity normal to inspection General Extremety ED: Negative for edema, pulses abnormal or tenderness General Extremity: Negative for edema or pulses abnormal Neuro oriented x3 and CN's II-XII intact bilaterally Sensorium / Orientation: awake, alert, oriented to person and oriented to place; Negative for oriented to time, confused or lethargic Motor Exam: strength 5/5 throughout Psych mental status grossly normal Appearance: Negative for unkempt Attitude: No agitated Mood & Affect: Negative for depressed, anxious or tearful Skin no rashes or lesions noted and no wounds General Skin Exam: Negative for jaundice or pallor Rashes: No rashes noted Trauma: Negative for abrasion, laceration or puncture MDM MDM MDM Narrative Medical decision making narrative: 73-year-old female history of A-fib has recurrent A-fib and intermittent RVR. Unfortunately today her has been chronically ill and in hospice. And then she went back into A-fib RVR. She was actually seen in the emergency department earlier this morning and unremarkable workup. And she wanted to be discharged home without patient follow-up. 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 Juno Wakefield. She will be given amiodarone IV bolus and drip and be admitted to the hospitalist. She did get IV amiodarone earlier this morning. History & Record Review Discussion w/independent historian: Patient Additional record(s) reviewed:: Prior inpatient record, Prior outpatient record, Prior ED visit and Prior labs Lab Data Attestation: I reviewed the patient's lab results. Lab results narrative: I reviewed the patient's labs from earlier today her CBC showed a white count of 7. H&H of 13 and 40. Anion gap 3. BUN and creatinine are 19 and 0.6. Radiography Chest X-Ray - ED: 1 View, Read by ED Physician, Read by Radiologist, Normal, Heart, Lungs, Mediastinum and Bony Structures Diagnostic Testing: Chest x-ray, portable, single view done earlier today was unremarkable. Rhythm Strip Rhythm Strip: A-fib Rate: 132 Ectopy: None EKG Initial EKG: Attestation: I personally reviewed and interpreted this EKG as follows: Interpretation: Atrial Fibrillation Comments: A-fib with rapid ventricular rate 132. No acute signs of HI or ischemia. No ST elevation. Discharge Plan Triage Chief Complaint: Palpitations ED Provider: Jose Maria Haque Dx/Rx/DC Orders Clinical Impression: Anticoagulated, Atrial fibrillation with rapid ventricular response Prescriptions: No Action multivitamin Tablet 1 tab PO DAILY glucosamine sulfate [Glucosamine] 500 mg tablet 500 mg PO DAILY Rx Instructions: administer with a meal calcium citrate 250 mg calcium tablet 250 mg PO DAILY Eliquis 5 mg tablet 5 mg PO BID Qty: 60 0RF Rx Instructions: start on 05/05/23 mirtazapine 7.5 mg tablet 7.5 mg PO QHS PRN (Reason: sleeping) telmisartan 40 mg tablet nitroglycerin 0.4 mg tablet, sublingual 0.4 mg sublingual Q5M PRN (Reason: chest pain) metoprolol tartrate 50 mg Tablet 50 mg PO BID Qty: 120 0RF ascorbic acid (vitamin C) [C Complex] 500 mg tablet extended release 500 mg PO DAILY metoprolol tartrate 75 mg tablet 75 mg PO BID Qty: 30 0RF Primary Care Provider: Galindo Coello Referrals: Galindo Coello MD [Primary Care Provider] - Disposition Disposition: Acute Care Hospital [facility]
[2023-09-01] MEDS: Amiodarone 150 MG in Dextrose 5%-Water (100mL Bag) 100 ML 600 MG IV BOLUS (13:47)
[2023-09-01 13:58] LABS: Troponin-I HS 15 pg/mL (3.0-54.0)
--- NOTE | 2023-09-01 14:05 | HP.PCM.HOS_ITS ---
HPI - General General Date of Admission: 09/01/23 Date of Service: 09/01/23 Chief Complaint: Chest pressure and fast heart rate HPI Narrative MARY HELMS, is a 73-year-old female history of A-fib on Eliquis, and hypertension who presented to [facility] 09/01/2023 for recurrent A-fib with RVR. She was seen last night due to symptomatic A-fib with RVR but as her was imminently dying she requested to be discharged home so after discussion with cardiology her metoprolol was increased and she was given an amnio bolus and discharged to go see her and hospice. passed this a.m. and she began having some symptoms and her heart rate was checked and noted to be 120s to 130 range show she was sent back to the ED. Has had attempted cardioversions x3 without conversion, cardiology contacted upon p faith's arrival and it was recommended she get a half bolus of amnio and started on amnio drip and that they can be contacted with other questions. Hospitalist contacted for admission. Patient reports that she has been having problems with heart racing and chest pressure since February and was diagnosed with A-fib in April and has had problems off and on since that time. History of past 24 hours as above. While she is laying there right now heart rate in 80s on the Amio and presently having no symptoms, main complaint right now is itchy rash underwear the pads were placed for cardioversion on her chest and back. No fevers or chills, no shortness of breath or cough, no swelling in extremities. REPLACED BY [facility] Medical History Chronic insomnia Hearing deficit Hypertension Non-smoker Osteoporosis Paroxysmal atrial fibrillation Home Medications apixaban 5 mg tablet (Eliquis) 5 mg PO BID a fib #60 tabs 05/04/23 [Rx Last Taken 08/23/23] glucosamine sulfate 500 mg tablet (Glucosamine) 500 mg PO DAILY supplement 05/17/23 [History Last Taken 08/31/23] multivitamin 1 tab PO DAILY supplement 05/17/23 [History Last Taken 08/31/23] calcium citrate 250 mg PO DAILY supplement 05/24/23 [History Last Taken 08/31/23] mirtazapine 7.5 mg tablet 7.5 mg PO QHS PRN sleeping 05/24/23 [History Last Taken 08/30/23] nitroglycerin 0.4 mg sublingual tablet 0.4 mg sublingual Q5M PRN chest pain 08/24/23 [History Last Taken 08/23/23] metoprolol tartrate 50 mg tablet 50 mg PO BID BLOOD PRESSURE #120 tabs 08/25/23 [Rx Last Taken 08/31/23] artificial tears(hypromellose) 0.3 % eye gel (Systane Gel) 1 drp EACH EYE QHS dry eye 09/01/23 [History Last Taken 08/31/23] ascorbic acid (vitamin C) 500 mg tablet,extended release (C Complex) 500 mg PO DAILY SUPPLEMENT 09/01/23 [History Last Taken 08/31/23] magnesium 250 mg tablet 250 mg PO QHS supplement 09/01/23 [History Last Taken 08/31/23] metoprolol tartrate 75 mg tablet 75 mg PO BID afib #30 tabs 09/01/23 [Rx Last Taken Unknown] Allergy/AdvReac Type Severity Reaction Status Date / Time No Known Allergies Allergy Verified 09/01/23 12:34 Family History Brother Atrial fibrillation Heart disease CAD (coronary artery disease) Pacemaker Brother Atrial fibrillation Pacemaker Heart disease Mother Heart disease CAD (coronary artery disease) Father Colon cancer Sister Cancer Brother Buckingham's disease Surgical History History of dental surgery Social History household members: spouse Smoking Status: Never smoker alcohol intake: current alcohol intake frequency: a few times a week Alcohol type: wine substance use type: does not use ROS ROS Narrative General: Denies fever/chills HENT: Denies headache, denies stuffy nose, denies sore throat EYES: Denies changes in vision Resp: Denies cough, denies shortness of breath Cardiac: Some chest pressure and heart racing intermittently, none at present GI: Denies abdominal pain, denies changes in bowel, denies nausea/vomiting : Denies changes in urination Extremity: Denies swelling MSK: Denies weakness Neuro: Denies any numbness/tingling Heme: Denies any bleeding or bruising Skin: Denies rashes Psychiatric: this morning Vital Signs Vital Signs Vital Signs: 09/01/23 12:34 09/01/23 13:18 09/01/23 13:47 Temperature 97.8 F Temperature Source Temporal Pulse Rate 95 130 H 114 H Respiratory Rate 14 26 H Blood Pressure 96/72 116/95 H 103/57 L Blood Pressure Mean 80 102 72 Pulse Ox 98 99 Oxygen Delivery Method Room Air Room Air Weight Weight: 55.338 kg Body Mass Index (BMI) 20.2 Physical Exam Narrative General: Alert, oriented, no apparent distress HEENT: Atraumatic, normocephalic Eyes: Anicteric, normal conjunctiva, extraocular movements grossly intact Neck: Supple Respiratory: Clear to auscultation bilaterally, normal respiratory effort Cardiovascular: Irregularly irregular GI: Soft, nontender, nondistended Extremities: No edema Musculoskeletal: Moving all extremities Neuro: No overt focal neurological deficits Skin: Red patchy rash in shape of pads on chest and back Psych: Cooperative Results Lab / Micro Data Labs: Laboratory Results - last 24 hr 09/01/23 13:32: Troponin I High Sens 15 Rhythm Strip Rhythm Strip: A-fib Rate: 132 Ectopy: None Assessment & Plan Assessment/Plan (1) Atrial fibrillation with rapid ventricular response: (2) Hypertension: QUALIFIERS: Hypertension type: primary hypertension Qualified Code(s): I10 - Essential (primary) hypertension (3) Contact dermatitis: PLAN: Plan # A-fib with RVR -Previous refractory to cardioversion -Continue Eliquis -Metoprolol increased to 75 mg twice daily yesterday -Will increase to 100 twice daily and started on amio drip, may need oral amio on discharge -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 and gave recommendations for gtt and advised he can be contacted for further questions/management -Last echocardiogram several months ago with EF 55% and PASP 28, will repeat limited echo to evaluate for any gross abnormalities -Troponin wnl -Recent TSH wnl -Will likely need outpt sleep study eval for sleep apnea # Hypertension -Increasing metoprolol -Will hold telmisartan to allow adjustments for rate controlling medications and can resume this if blood pressure allows #Contact dermatitis -From front and back pads from cardioversion -Hydrocortisone prn #DVT ppx: Francisco Javier Dominique MD Charges/Coding Visit Charges Inpatient E&M: 46386 Init Hosp L1
[2023-09-01] MEDS: Amiodarone 360 MG in Dextrose 5% Viaflo Bag 192.8 ML 33.2999999999999972 MG CONT INF (14:13)
--- NOTE | 2023-09-01 14:39 | ECHOL_ITS ---
Reason For Study: Afib/Flutter Procedure This was a limited 2D transthoracic echocardiogram. Exam performed portable in patient room. Left Ventricle Normal left ventricle. The estimated ejection fraction is 55-60 %. Right Ventricle Normal right ventricle. Normal systolic function. Atria Normal left atrium. Normal right atrium. Mitral Valve The mitral valve is structurally normal. No prolapse or stenosis seen. Mild (1+) mitral valve insufficiency. Tricuspid Valve Normal tricuspid valve. Mild tricuspid valve insufficiency. Aortic Valve Trisinus/trileaflet aortic valve. The aortic valve is not well visualized in the short axis view. Great Vessels Normal aortic root. Pericardium/Pleural No pericardial effusion. MMode/2D Measurements & Calculations LVIDd: 3.1 cm IVSd: 1.2 cm LA dimension: 3.0 cm LVIDs: 2.0 cm LVPWd: 1.2 cm RVDd: 3.3 cm FS: 33.4 % LAV(MOD-sp4): 29.7 ml LA A4 area: 12.8 cm2 RA A4 area: 15.6 cm2 Doppler Measurements & Calculations TR max wandy: 271.0 cm/sec TR max P.4 mmHg ECHO/Echo, Limited Study Interpretation Summary The estimated ejection fraction is 55-60 %. Normal LV systolic function Mild MR Mild TR No prior echo to compare. Ordering Physician: Aggie Dominique Referring Physician: Galindo Coello Performed By: Fred Wu RCS
[2023-09-01] MEDS: Hydrocortisone 2.5% Ointment 20 gm tube 1 APPLIC TOPICAL (16:04)
[2023-09-01] MEDS: Amiodarone 360 MG in Dextrose 5% Viaflo Bag 192.8 ML 16.6999999999999993 MG CONT INF (20:30)
[2023-09-01] MEDS: Magnesium Chloride 64 MG Delay Rel.Tablet PO (21:07)
[2023-09-01] MEDS: DiphenhydrAMINE 50 MG/ML Syringe 25 MG IV (21:07)
[2023-09-01] MEDS: APIXABAN 5 MG TABLET PO (21:07)
[2023-09-01] MEDS: Metoprolol Tartrate 100 MG Tablet PO (21:07)
[2023-09-01] MEDS: CARBOXYMETHYLCELLULOSE SODIUM 1 DRP DROPS OPHTHALMIC (21:11)
[2023-09-02] VITALS (15 sets, daily range): BP systolic 100–120; BP diastolic 53–103; PULSE 48–64; RESP 13–19; TEMP 36.5–36.6; O2SAT 95–100; BMI 21.3
[2023-09-02 06:17] LABS: Absolute Neutrophil Count 5.9 X10^3/uL (2.0-7.7); Basophil# 0.04 X10^3/uL; Basophil% 0.5 % (0-1); Eosinophils% 1.2 % (0-5); Hematocrit 37.2 % (37-47); Hemoglobin 12.2 g/dL (12.0-15.0); Lymphocyte % 23.7 % (19-41); Mean Corp Hgb Conc 32.8 g/dL (32-36); Mean Corpuscular Volume 91.4 fL (81-99); Mean Platelet Vol. 9.3 fl (6.2-12.0); Monocyte# 0.42 X10^3/uL; NRBC Flagged by Analyzer 0 % (0-5); Neutrophil # 5.86 X10^3/uL (2.7-7.7); Neutrophil % 69.4 % (47-70); Platelet Count 358 K/mm3 (150-450); RBC Distribution Width CV 13.6 % (11.6-14.6); Red Blood Count 4.07 M/mm3 (4.2-5.4); White Blood Count 8.4 K/mm3 (4.4-11.0)
[2023-09-02 06:44] LABS: Anion Gap 4 (5-15); BUN 14 mg/dL (7-18); BUN/Creat Ratio 19.9 RATIO (10-20); Calcium,Total 8.8 mg/dL (8.5-10.1); Chloride 111 mmol/L (98-107); EST Glomerular Filtration Rate 87 mL/min (>60); Est Glom Filt Rate - Afr Amer 105 mL/min (>60); Estimated Creatinine Clearance 54.89 ml/min; Glucose 112 mg/dL (74-106); Magnesium 2.4 mg/dL (1.6-2.6); Sodium Level 138 mmol/L (136-145)
[2023-09-02] MEDS: Amiodarone 360 MG in Dextrose 5% Viaflo Bag 192.8 ML 16.6999999999999993 MG CONT INF (08:17)
[2023-09-02] MEDS: Hydrocortisone 2.5% Ointment 20 gm tube 1 APPLIC TOPICAL (08:22)
--- NOTE | 2023-09-02 09:25 | CASEMGMT ---
LEWIS SWEENEY Readmission Note Previous Admission: 08/24/23-08/25/23 Diagnosis: PAF with RVR DC Disposition: Home Current Admission: Admitted 09/01/23 Current Diagnosis: A-fib with RVR Pt presented to ER on 09/01/23 with afib, pt imminently passing with hospice and pt metoprolol dose increased and amio bolus given so pt could be dc'd. Pt did pass and pt heartrate was 120-130's, pt reported back to ER. Pt has converted back to SR and plans to be dc'd today. LEWIS SWEENEY into pt room, pt states since last hospitalization she has not yet followed up with any physicians d/t being so busy with her 's care. Pt denies need to speak to SW regarding 's passing. Pt reports she did take her medications as ordered. Pt reports being I in ADL's and denies concerns at home. Declines any home services. DC Plan: Home
[2023-09-02] MEDS: APIXABAN 5 MG TABLET PO (09:34)
[2023-09-02] MEDS: Metoprolol Tartrate 100 MG Tablet PO (09:34)
--- NOTE | 2023-09-02 13:33 | PCM.DC ---
Discharge Instructions Diet Discharge Diet: No restrictions Activity Discharge Activity: Return to Normal Activity Weight Bearing Status: Full weight bearing Follow Up Care Test Results: Test results from this visit will be discussed in further detail at your follow-up appointment, if applicable. Discharge Plan Admission Admit Date/Time: 09/01/23 14:06 Primary Reason for Your Visit: A-fib with RVR Attending Provider: Steven Pollard Primary Care Provider: Galindo Coello Consulting Providers: Aggie Dominique Discharge Orders/Prescriptions Prescriptions: New metoprolol tartrate 100 mg Tablet 100 mg PO BID Qty: 60 0RF Continued multivitamin Tablet 1 tab PO DAILY glucosamine sulfate [Glucosamine] 500 mg tablet 500 mg PO DAILY Rx Instructions: administer with a meal calcium citrate 250 mg calcium tablet 250 mg PO DAILY Eliquis 5 mg tablet 5 mg PO BID Qty: 60 0RF Rx Instructions: start on 05/05/23 mirtazapine 7.5 mg tablet 7.5 mg PO QHS PRN (Reason: sleeping) magnesium 250 mg tablet 250 mg PO QHS Systane Gel 0.3 % gel 1 drp EACH EYE QHS nitroglycerin 0.4 mg tablet, sublingual 0.4 mg sublingual Q5M PRN (Reason: chest pain) ascorbic acid (vitamin C) [C Complex] 500 mg tablet extended release 500 mg PO DAILY Discontinued metoprolol tartrate 50 mg Tablet 50 mg PO BID Qty: 120 0RF Patient Comments: pt will be 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 Referrals / Follow Up: Galindo Coello MD [Primary Care Provider] - Within 1 Month Juno Wakefield MD [Med Staff - Active Staff] - See Referral Note (Call to schedule appointment) Disposition Disposition (needs filled in before D/C Order can be placed): Home, Self Care
--- NOTE | 2023-09-02 13:37 | DS.PCM_ITS ---
Providers Date of Admission: 09/01/23 Date of Discharge: 09/02/23 Primary Care Physician: Dr. Galindo Coello MD Reason For Visit: A-FIB RVR Diagnosis Discharge Diagnosis (1) Atrial fibrillation with rapid ventricular response: Status: Acute Code(s): I48.91 - Unspecified atrial fibrillation (2) Hypertension: Status: Chronic Code(s): I10 - Essential (primary) hypertension Qualifiers: Hypertension type: primary hypertension Qualified Code(s): I10 - Essential (primary) hypertension (3) Contact dermatitis: Status: Acute Code(s): L25.9 - Unspecified contact dermatitis, unspecified cause Plan 1. Paroxysmal atrial fibrillation with RVR #2 essential hypertension Medications at Discharge Home Medications apixaban 5 mg tablet (Eliquis) 5 mg PO BID a fib #60 tabs 05/04/23 glucosamine sulfate 500 mg tablet (Glucosamine) 500 mg PO DAILY supplement 05/17/23 multivitamin 1 tab PO DAILY supplement 05/17/23 calcium citrate 250 mg PO DAILY supplement 05/24/23 mirtazapine 7.5 mg tablet 7.5 mg PO QHS PRN sleeping 05/24/23 nitroglycerin 0.4 mg sublingual tablet 0.4 mg sublingual Q5M PRN chest pain 08/24/23 artificial tears(hypromellose) 0.3 % eye gel (Systane Gel) 1 drp EACH EYE QHS dry eye 09/01/23 ascorbic acid (vitamin C) 500 mg tablet,extended release (C Complex) 500 mg PO DAILY SUPPLEMENT 09/01/23 magnesium 250 mg tablet 250 mg PO QHS supplement 09/01/23 metoprolol tartrate 100 mg tablet 100 mg PO BID #60 tabs 09/02/23 Hospital Course Operations None Procedures None Summary of Care Provided Minutes Spent on Discharge: 30 Hospital Course: This 73-year-old white female was seen in the emergency room at [facility] with complaints of increased heart rate, she has a history of paroxysmal atrial fibrillation and is fully anticoagulated on Eliquis. Patient had been seen earlier in the day for similar complaints in the emergency room and an attempt to cardiovert her was carried out without success, patient was given additional rate control medications and she was discharged home because her was passing away and she wanted to be at home. She then returned later on that day to be reevaluated for rapid heart rate. Rhythm strip in the emergency room showed the patient to be in atrial fibrillation with a rate of 132. Her quality control head was contacted by the emergency room, they advised admitting the patient to PCU and placing the patient on amiodarone drip and increasing the patient's beta-juni. Patient converted to sinus rhythm after admission to the hospital on an amiodarone drip, she was given metoprolol 100 mg twice daily while hospitalized. On 09/02/2023, patient was seen and examined: On examination she appeared in good health and spirits, she does not appear to be in any distress. Vital signs as documented. Skin warm and dry and without overt rashes. Neck without JVD, thyroid appears normal, trachea is midline, neck is supple. Lungs clear, normal air movement was noted. Heart exam notable for regular rhythm, normal sounds and absence of murmurs, rubs or gallops. Abdomen unremarkable and without evidence of organomegaly, masses, or abdominal aortic enlargement, bowel sounds are present in all 4 quadrants, no abdominal tenderness was noted. Extremities nonedematous, no cyanosis was noted, no clubbing was noted. Neuro: Cranial nerves II through XII are grossly intact, no focal motor deficits were noted, sensation to light touch and pinprick is intact, motor exam 5/5 throughout. Psych: Patient is alert and oriented x3, she does not appear anxious or depressed, she does not appear agitated. Patient was discharged home in stable condition on 09/02/2023 Weight / BMI Weight Weight: 56.3 kg Body Mass Index (BMI) 21.3 ABG / Lab / Microbiology Data 09/02/23 05:33 09/02/23 05:33 Laboratory: Laboratory Results - last 24 hr 09/01/23 13:32: Troponin I High Sens 15 09/02/23 05:33: WBC 8.4, RBC 4.07 L, Hgb 12.2, Hct 37.2, MCV 91.4, MCH 30.0, MCHC 32.8, RDW Std Deviation 46.0 H, RDW Coeff of Adrianne 13.6, Plt Count 358, MPV 9.3, Immature Gran % (Auto) 0.200, Neut % (Auto) 69.4, Lymph % (Auto) 23.7, Randolph % (Auto) 5.0, Eos % (Auto) 1.2, Baso % (Auto) 0.5, Absolute Neuts (auto) 5.9, Absolute Lymphs (auto) 2.00, Nucleated RBC % 0, Sodium 138, Potassium 4.0, Chloride 111 H, Carbon Dioxide 23.0, Anion Gap 4 L, BUN 14, Creatinine 0.70, Estim Creat Clear Calc 54.89, Est GFR (MDRD) Af Amer 105, Est GFR (MDRD) Non-Af 87, BUN/Creatinine Ratio 19.9, Glucose 112 H, Calcium 8.8, Magnesium 2.4 Radiography Diagnostic Testing: Radiology Impression Echocardiogram 09/01/23 14:39 Interpretation Summary The estimated ejection fraction is 55-60 %. Normal LV systolic function Mild MR Mild TR No prior echo to compare. Ordering Physician: Aggie Dominique Referring Physician: Galindo Coello Performed By: Fred Wu RCS D/C Instructions Discharge Diet: No restrictions Weight Bearing Status: Full weight bearing Meaningful Use Info Meaningful Use Diagnoses (Choose all that apply): None applicable Discharge Plan Admission Admit Date/Time: 09/01/23 14:06 Primary Reason for Your Visit: A-fib with RVR Attending Provider: Steven Pollard Primary Care Provider: Galindo Coello Consulting Providers: Aggie Dominique Discharge Orders/Prescriptions Prescriptions: New metoprolol tartrate 100 mg Tablet 100 mg PO BID Qty: 60 0RF Continued multivitamin Tablet 1 tab PO DAILY glucosamine sulfate [Glucosamine] 500 mg tablet 500 mg PO DAILY Rx Instructions: administer with a meal calcium citrate 250 mg calcium tablet 250 mg PO DAILY Eliquis 5 mg tablet 5 mg PO BID Qty: 60 0RF Rx Instructions: start on 05/05/23 mirtazapine 7.5 mg tablet 7.5 mg PO QHS PRN (Reason: sleeping) magnesium 250 mg tablet 250 mg PO QHS Systane Gel 0.3 % gel 1 drp EACH EYE QHS nitroglycerin 0.4 mg tablet, sublingual 0.4 mg sublingual Q5M PRN (Reason: chest pain) ascorbic acid (vitamin C) [C Complex] 500 mg tablet extended release 500 mg PO DAILY Discontinued metoprolol tartrate 50 mg Tablet 50 mg PO BID Qty: 120 0RF Patient Comments: pt will be stopping the 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 Referrals / Follow Up: Galindo Coello MD [Primary Care Provider] - Within 1 Month Juno Wakefield MD [Med Staff - Active Staff] - See Referral Note (Call to schedule appointment) Disposition Disposition (needs filled in before D/C Order can be placed): Home, Self Care Charges/Coding Visit Charges Inpatient E&M: 77723 Disch Hosp
== END 2023-09-02 15:48 | disposition home or self-care (01) | DRG 310 ==
LOC: ED 13:39 → PCU 14:22
PROVIDERS: Admitting Provider Internal Medicine; Emergency Provider Emergency Medicine; PCP Family Medicine; Visit Provider Internal Medicine
DX: I48.0 Paroxysmal atrial fibrillation (principal); I10 Essential (primary) hypertension; L23.89 Allergic contact dermatitis due to other agents; Z63.4 Disappearance and death of family member; Z79.01 Long term (current) use of anticoagulants; Z79.899 Other long term (current) drug therapy; Z82.49 Family history of ischemic heart disease and other diseases of the circulatory system
CPT/HCPCS: 71045; 80048; 83735; 84484; 85025; 93005; 93308; 96365; 96366; 96375; 99283; 99284; J7030; Q9957; A4216

== ENCOUNTER → 2024-07-04 | Outpatient (CLI) | payer MEDICARE, SELFPAY ==
[2024-07-04 12:04] LABS: Absolute Lymphocyte Count 1.95 X10^3/uL (0.83-4.51); Absolute Neutrophil Count 4.1 X10^3/uL (2.0-7.7); Basophil# 0.04 X10^3/uL; Basophil% 0.6 % (0-1); Eosinophil# 0.05 X10^3/uL; Eosinophils% 0.8 % (0-5); Hematocrit 42.2 % (37-47); Lymphocyte # 1.95 X10^3/ul (0.83-4.51); Lymphocyte % 30.3 % (19-41); Mean Corp Hgb Conc 33.2 g/dL (32-36); Mean Corpuscular Hgb 30.2 pg (27.0-32.0); Mean Corpuscular Volume 90.9 fL (81-99); Mean Platelet Vol. 9.3 fl (6.2-12.0); Monocyte# 0.32 X10^3/uL; NRBC Flagged by Analyzer 0 % (0-5); Neutrophil # 4.05 X10^3/uL (2.7-7.7); Platelet Count 469 K/mm3 (150-450); RBC Distribution Width CV 12.9 % (11.6-14.6); RBC Distribution Width SD 42.5 fl (35.1-43.9); Red Blood Count 4.64 M/mm3 (4.2-5.4); White Blood Count 6.4 K/mm3 (4.4-11.0)
[2024-07-04 13:10] LABS: ALB/GLOB Ratio 1.1 RATIO (0.9-2.4); AST(SGOT) 23 U/L (15-37); Alanine Aminotransfer ALT/SGPT 27 U/L (13-56); Albumin, Serum 4.1 g/dL (3.2-5.0); Alkaline Phosphatase 68 U/L (45-117); Anion Gap 7 (5-15); BUN 17 mg/dL (7-18); BUN/Creat Ratio 31.4 RATIO (10-20); Calcium,Total 9.9 mg/dL (8.5-10.1); Chloride 99 mmol/L (98-107); Creatinine, Serum 0.54 mg/dL (0.55-1.02); EST Glomerular Filtration Rate 117 mL/min (>60); Est Glom Filt Rate - Afr Amer 142 mL/min (>60); Globulin 3.7 g/dL (2.2-4.2); Glucose 97 mg/dL (74-106); Protein, Total 7.8 g/dL (6.4-8.2); Sodium Level 132 mmol/L (136-145)
[2024-07-05 15:09] LABS: Lyme Scn Total Ab w/Rflx Negative (Negative); PROEL- A/G Ratio 1.3 (0.7-1.7); PROEL- Alpha-1 Globulin 0.2 g/dL (0.0-0.4); PROEL- Alpha-2 Globulin 0.7 g/dL (0.4-1.0); PROEL- Beta Globulin 1.1 g/dL (0.7-1.3); PROEL- Gamma Globulin 1.2 g/dL (0.4-1.8); PROEL- Globulin, Total 3.2 g/dL (2.2-3.9); PROEL- TOTAL PROTEIN 7.2 g/dL (6.0-8.5); PROEL-M-Spike Not Observed g/dL (Not Observed)
== END | disposition home or self-care (01) ==
PROVIDERS: PCP Family Medicine; Referring Provider Family Medicine; Visit Provider Family Medicine
DX: I10 Essential (primary) hypertension (principal); I48.91 Unspecified atrial fibrillation
CPT/HCPCS: 36415; 80053; 84165; 84443; 85025; 86618

== ENCOUNTER → 2024-07-26 | Outpatient (CLI) | payer MEDICARE, SELFPAY ==
[2024-07-26 12:34] LABS: Anion Gap 3 (5-15); BUN 15 mg/dL (7-18); BUN/Creat Ratio 24.4 RATIO (10-20); Calcium,Total 9.8 mg/dL (8.5-10.1); Chloride 98 mmol/L (98-107); Creatinine, Serum 0.62 mg/dL (0.55-1.02); EST Glomerular Filtration Rate 101 mL/min (>60); Est Glom Filt Rate - Afr Amer 122 mL/min (>60); Glucose 107 mg/dL (74-106); Sodium Level 130 mmol/L (136-145)
[2024-07-26 13:35] LABS: Osmolality, Urine 449 mOsm/KG
[2024-07-26 13:38] LABS: Osmolality, Serum 281 mOsm/KG (280-301)
== END | disposition home or self-care (01) ==
LOC: MTLAB 10:56
PROVIDERS: PCP Family Medicine; Referring Provider Family Medicine; Visit Provider Family Medicine
DX: E87.1 Hypo-osmolality and hyponatremia (principal)
CPT/HCPCS: 36415; 80048; 82570; 83930; 83935; 84300

== ENCOUNTER → 2024-07-29 | Outpatient (CLI) | payer MEDICARE, SELFPAY ==
[2024-07-29 10:04] LABS: Urine Sodium 52 mmol/L (Not Establ.)
== END | disposition home or self-care (01) ==
PROVIDERS: PCP Family Medicine; Referring Provider Family Medicine; Visit Provider Family Medicine
DX: R39.9 Unspecified symptoms and signs involving the genitourinary system (principal)
CPT/HCPCS: 84300

== ENCOUNTER → 2024-08-28 | Outpatient (CLI) | payer MEDICARE, SELFPAY ==
[2024-08-28 15:35] LABS: Urine Sodium 52 mmol/L (Not Establ.)
[2024-08-28 15:57] LABS: ALB/GLOB Ratio 1.2 RATIO (0.9-2.4); AST(SGOT) 17 U/L (15-37); Alanine Aminotransfer ALT/SGPT 23 U/L (13-56); Albumin, Serum 4.1 g/dL (3.2-5.0); Alkaline Phosphatase 67 U/L (45-117); Anion Gap 7 (5-15); BUN 14 mg/dL (7-18); BUN/Creat Ratio 22.8 RATIO (10-20); Chloride 97 mmol/L (98-107); Creatinine, Serum 0.61 mg/dL (0.55-1.02); EST Glomerular Filtration Rate 102 mL/min (>60); Est Glom Filt Rate - Afr Amer 123 mL/min (>60); Globulin 3.5 g/dL (2.2-4.2); Glucose 90 mg/dL (74-106); Magnesium 2.3 mg/dL (1.6-2.6); Potassium 4.1 mmol/L (3.5-5.1); Protein, Total 7.6 g/dL (6.4-8.2); Sodium Level 131 mmol/L (136-145)
[2024-08-28 16:38] LABS: Osmolality, Serum 288 mOsm/KG (280-301); Osmolality, Urine 527 mOsm/KG
== END | disposition home or self-care (01) ==
PROVIDERS: PCP Family Medicine; Referring Provider Family Medicine; Visit Provider Family Medicine
DX: E87.1 Hypo-osmolality and hyponatremia (principal)
CPT/HCPCS: 36415; 80053; 83735; 83930; 83935; 84300

== ENCOUNTER → 2024-10-28 | Outpatient (CLI) | payer MEDICARE, SELFPAY ==
--- NOTE | 2024-10-28 10:34 | BI_ITS ---
EXAM: SCRN MAMM (CAD)W/MARILEE BILAT DATE: 10/28/2024 CLINICAL HISTORY: F, Age 74 y/o , ROUTINE SCREENING BREAST CANCER RISK ASSESSMENT: Has not been calculated. TECHNIQUE: Bilateral screening digital breast tomosynthesis with 2D and 3D images. Computer aided detection. COMPARISON: Prior exam(s) dated 06/19/2023. FINDINGS: TISSUE DENSITY: The breast tissue is composed of scattered area of fibroglandular density. Bilateral Breast Mammographic Findings: There are no suspicious masses, suspicious cluster of microcalcifications, architectural distortion or secondary signs of malignancy identified in either breast. Appearing round calcifications seen in both breasts. Benign vascular calcifications are seen in both breasts. BI/SCRN MAMM (CAD)W/MARILEE BILAT IMPRESSION: Right Breast: BIRADS 2 BENIGN FINDING. Left Breast: BIRADS 2 BENIGN FINDING. OVERALL FINAL ASSESSMENT: BIRADS 2 BENIGN FINDING RECOMMENDATION: Routine annual follow-up in 1 Year A letter with findings and recommendations will be mailed to the patient. Reading Location: [id number]
[2024-10-28 15:37] LABS: Microalbumin,Random Urine < 12.0 mg/L (NO RANGE EST.); Microalbumin:Creatinine Ratio UNABLE TO CALCULATE mg/g CRE; Urine Sodium 38 mmol/L (Not Establ.)
[2024-10-28 15:38] LABS: ALB/GLOB Ratio 1.7 RATIO (0.9-2.4); AST(SGOT) 21 U/L (<=31); Alanine Aminotransfer ALT/SGPT 18 U/L (<=34); Albumin, Serum 4.4 g/dL (3.4-4.8); Alkaline Phosphatase 60 U/L (35-104); Anion Gap 13 (5-15); BUN 13 mg/dL (4-19); BUN/Creat Ratio 23.3 RATIO (10-20); Calcium,Total 10.2 mg/dL (7.6-11.0); Carbon Dioxide 20.2 mmol/L (21.0-32.0); Chloride 98 mmol/L (98-108); Creatinine, Serum 0.55 mg/dL (0.70-1.20); EST Glomerular Filtration Rate 97 (>60); Globulin 2.6 g/dL (2.2-4.2); Glucose 101 mg/dL (70-99); Potassium 4.1 mmol/L (3.3-5.1); Protein, Total 7.1 g/dL (5.9-8.4); Sodium Level 131 mmol/L (133-145); Total Bilirubin 0.55 mg/dL (0.00-1.30)
== END | disposition home or self-care (01) ==
PROVIDERS: PCP Family Medicine; Referring Provider Family Medicine; Visit Provider Family Medicine
DX: Z12.31 Encounter for screening mammogram for malignant neoplasm of breast (principal)
CPT/HCPCS: 36415; 77063; 77067; 80053; 82043; 82570; 84300

== ENCOUNTER → 2024-12-19 | Outpatient (CLI) | payer MEDICARE, SELFPAY ==
[2024-12-19 18:15] LABS: Absolute Neutrophil Count 4.9 X10^3/uL (2.0-7.7); Basophil# 0.03 X10^3/uL; Basophil% 0.4 % (0-1); Eosinophil# 0.09 X10^3/uL; Eosinophils% 1.1 % (0-5); Hematocrit 39.3 % (37-47); Hemoglobin 13.1 g/dL (12.0-15.0); Lymphocyte % 31.5 % (19-41); Mean Corp Hgb Conc 33.3 g/dL (32-36); Mean Corpuscular Hgb 30.3 pg (27.0-32.0); Mean Platelet Vol. 9.6 fl (6.2-12.0); Monocyte# 0.41 X10^3/uL; Monocyte% 5.2 % (0-10); NRBC Flagged by Analyzer 0 % (0-5); Neutrophil # 4.87 X10^3/uL (2.7-7.7); Neutrophil % 61.4 % (47-70); Platelet Count 424 K/mm3 (150-450); RBC Distribution Width CV 12.9 % (11.6-14.6); RBC Distribution Width SD 43.8 fl (35.1-43.9); Red Blood Count 4.32 M/mm3 (4.2-5.4); White Blood Count 7.9 K/mm3 (4.4-11.0)
[2024-12-19 18:22] LABS: ALB/GLOB Ratio 1.6 RATIO (0.9-2.4); AST(SGOT) 22 U/L (<=31); Alanine Aminotransfer ALT/SGPT 17 U/L (<=34); Albumin, Serum 4.4 g/dL (3.4-4.8); Alkaline Phosphatase 67 U/L (35-104); Anion Gap 12 (5-15); BUN 16 mg/dL (4-19); BUN/Creat Ratio 26.7 RATIO (10-20); Calcium,Total 9.8 mg/dL (7.6-11.0); Carbon Dioxide 24.3 mmol/L (21.0-32.0); Chloride 94 mmol/L (98-108); Creatinine, Serum 0.61 mg/dL (0.70-1.20); EST Glomerular Filtration Rate 94 (>60); Globulin 2.8 g/dL (2.2-4.2); Glucose 95 mg/dL (70-99); Potassium 4.3 mmol/L (3.3-5.1); Protein, Total 7.2 g/dL (5.9-8.4); Sodium Level 130 mmol/L (133-145)
== END | disposition home or self-care (01) ==
LOC: MTLAB 16:39
PROVIDERS: PCP Family Medicine; Referring Provider Family Medicine; Visit Provider Family Medicine
DX: G47.33 Obstructive sleep apnea (adult) (pediatric) (principal)
CPT/HCPCS: 36415; 80053; 85025

== ENCOUNTER → 2025-06-04 | Outpatient (CLI) | payer MEDICARE, SELFPAY ==
[2025-06-04 15:20] LABS: Hematocrit 40.4 % (37-47); Hemoglobin 13.2 g/dL (12.0-15.0); Mean Corp Hgb Conc 32.7 g/dL (32-36); Mean Corpuscular Volume 91.2 fL (81-99); Mean Platelet Vol. 9.7 fl (6.2-12.0); Platelet Count 447 K/mm3 (150-450); RBC Distribution Width CV 12.8 % (11.6-14.6); RBC Distribution Width SD 42.3 fl (35.1-43.9); Red Blood Count 4.43 M/mm3 (4.2-5.4); White Blood Count 8.7 K/mm3 (4.4-11.0)
[2025-06-04 15:49] LABS: Creatinine, Urine (random) 41.60 mg/dL (28.00-217.00); Microalbumin,Random Urine 19.2 mg/L (<20 mg/L); Osmolality, Serum 284 mOsm/KG (280-301)
[2025-06-04 15:51] LABS: Osmolality, Urine 352 mOsm/KG
[2025-06-04 16:06] LABS: AST(SGOT) 23 U/L (<=31); Alanine Aminotransfer ALT/SGPT 19 U/L (<=34); Albumin, Serum 4.4 g/dL (3.4-4.8); Alkaline Phosphatase 64 U/L (35-104); Anion Gap 10 (5-15); BUN 14 mg/dL (4-19); BUN/Creat Ratio 24.5 RATIO (10-20); Calcium,Total 10.0 mg/dL (7.6-11.0); Carbon Dioxide 25.3 mmol/L (21.0-32.0); Chloride 96 mmol/L (98-108); Globulin 2.9 g/dL (2.2-4.2); Glucose 100 mg/dL (70-99); Magnesium 2.2 mg/dL (1.5-2.2); Potassium 4.6 mmol/L (3.3-5.1)
== END | disposition home or self-care (01) ==
LOC: MTLAB 12:51
PROVIDERS: PCP Family Medicine; Referring Provider Family Medicine; Visit Provider Family Medicine
DX: I48.91 Unspecified atrial fibrillation (principal); I10 Essential (primary) hypertension; E87.1 Hypo-osmolality and hyponatremia
CPT/HCPCS: 36415; 80053; 82043; 82570; 83735; 83930; 83935; 84300; 84443; 85027

== ENCOUNTER → 2025-06-19 | Outpatient (CLI) | payer MEDICARE, SELFPAY ==
--- NOTE | 2025-06-19 15:24 | BD_ITS ---
PROCEDURE: DEXA BONE DENSITY STUDY 06/19/2025 REASON FOR EXAM: F, age 75 y/o. . TECHNIQUE: Procedure Code: BDDBD Modality: DX Procedure: DEXA BONE DENSITY STUDY COMPARISON: 01/21/2021 FINDINGS: BMD and T-SCORES Lumbar spine: 0.751 g/cm2, T-score -2.7 Levels: L1 through L4 Change from prior: Dissimilar scan types/analysis methods, showing. Left femoral neck: 0.542 g/cm2, T-score -2.8 Femoral neck comparison data not recommended for monitoring change. Prior T-score not available Left total hip: 0.680 g/cm2, T-score -2.2 Change from prior: Dissimilar scan types/analysis methods, showing. Right femoral neck: 0.564 g/cm2, T-score -2.6 Femoral neck comparison data not recommended for monitoring change. Prior T-score none available Right total hip: 0.711 g/cm2, T-score -1.9 Change from prior: Dissimilar scan types/analysis methods, showing. The World Health Organization has defined the following categories based on bone density: Normal bone density: T-score equal to or greater than -1.0 Osteopenia: T-score between -1.0 and -2.5 Osteoporosis: T-score equal to or less than -2.5 FRAX (or Comparable) Fracture Risk Assessment: 10 Year Probability of Fracture: Major Osteoporotic Fracture: 16% Hip Fracture: 5% (Note: FRAX is not to be reported in setting of normal range bone density, osteoporosis on DEXA, known history of osteoporosis, prior osteoporotic hip or vertebral fracture, or for any patient undergoing pharmacological treatment for bone loss.) The National Osteoporosis Foundation (NOF) recommends pharmacological treatment for patients with a FRAX 10-year risk of 3% or higher for a hip fracture, or 20% or higher for a major osteoporotic fracture, to prevent osteoporosis and reduce fracture risk. BD/Dexa Bone Density Study IMPRESSION: OSTEOPOROSIS. Recommend follow-up as clinically warranted. Reading Location: [facility]
== END | disposition home or self-care (01) ==
LOC: OPBD 15:23
PROVIDERS: PCP Family Medicine; Referring Provider Family Medicine; Visit Provider Family Medicine
DX: N95.9 Unspecified menopausal and perimenopausal disorder (principal)
CPT/HCPCS: 77080

== ENCOUNTER → 2025-07-08 | Outpatient (CLI) | payer MEDICARE, SELFPAY ==
[2025-07-08 12:56] LABS: Anion Gap 9 (5-15); BUN 12 mg/dL (4-19); BUN/Creat Ratio 19.7 RATIO (10-20); Calcium,Total 9.9 mg/dL (7.6-11.0); Carbon Dioxide 26.2 mmol/L (21.0-32.0); Chloride 95 mmol/L (98-108); Glucose 95 mg/dL (70-99); Potassium 4.3 mmol/L (3.3-5.1)
[2025-07-08 13:10] LABS: Osmolality, Serum 280 mOsm/KG (280-301); Osmolality, Urine 399 mOsm/KG
== END | disposition home or self-care (01) ==
LOC: MTLAB 10:43
PROVIDERS: PCP Family Medicine; Referring Provider Family Medicine; Visit Provider Family Medicine
DX: E87.1 Hypo-osmolality and hyponatremia (principal)
CPT/HCPCS: 36415; 80048; 83930; 83935; 84300